=== PATIENT | female | born 1950 | race Caucasian/White ===

== ENCOUNTER 2024-07-21 13:28 | Emergency (ER) | payer OTHER, MEDICAID, SELFPAY ==
[2024-07-21 13:50] VITALS: BMI 22.8
--- NOTE | 2024-07-21 14:10 | PC.NURSE ---
pt incontinent of stool. pt clean up and new brief and sheets applied. pt noted to have pressure wound on r buttock area. Allevyn dressing applied. dr cuevas in room
[2024-07-21 14:14] VITALS: BP 135/66; PULSE 92; RESP 18; TEMP 36.6; O2SAT 100
--- NOTE | 2024-07-21 14:14 | EDNOTE_ITS ---
ED Back Injury Pain RME/HPI General Chief Complaint: Back Pain/Injury Stated Complaint: BLOOD IN STOOL WITH BACK PAIN Time Seen by Provider: 07/21/24 13:58 Arrival date/time: 07/21/24 13:28 RME / HPI RME / HPI Narrative: Patient is a 73 year old female presenting to the ED BIBA for reported dark stool and back pain for a nonspecific period of time. Does not describe paina t this time, rates 5/10 on the pain scale. Patient denies fevers, chills, nausea, vomiting, diarrhea, constipation. Patient also reports that she has had multiple rounds of antibiotics for UTI with no change. Patient history includes spina bifida, hypertension. Related Data Previous Rx's ?Medication ?Instructions ?Recorded sulfamethoxazole 800 1 tab PO BID #20 tabs 08/02/24 mg-trimethoprim 160 mg tablet (Bactrim DS) Allergies Allergy/AdvReac Type Severity Reaction Status Date / Time ciprofloxacin [From Cipro] Allergy Severe Rash Verified 07/21/24 13:37 Review of Systems Review of Systems Narrative Review of Systems: Gen: No fever, no chills, no weight loss EYES: No discharge, no visual changes, no pain HEENT: No ear pain, no congestion, no sore throat PULM: No shortness of breath, no cough, no congestion CV: No chest pain, no dyspnea on exertion, no palpitations GI: No nausea, no vomiting, no diarrhea, no pain, no constipation : No frequency, no urgency,? no dysuria Musc/skel: No joint pain, no back pain Skin: No rash? Psyc: No hallucinations, no depression Heme/Lymph: No easy bleeding or bruising tendencies Neuro: No weakness, no headache Past Medical History Past Medical History NEUROLOGIC: Positive Neurological Disorders and Spina Bifida CARDIAC: Positive Cardiac Disorders and Hypertension GASTROINTESTINAL: Positive Gastrointestinal Disorders GENITOURINARY: Positive Genitourinary Disorders and Neurogenic Bladder MUSCULOSKELETAL: Positive Osteoporosis Social History SMOKING STATUS: Light (< 1 pack/day) SUBSTANCE USE: does not use ED Exam Narrative Physical exam: GEN. APPEARANCE: The patient is alert awake oriented X-3 in no distress, lying down comfortably, does not look ill/toxic.? Patient has good eye contact.? Patient is cooperative. VITALS:? All vitals were reviewed and the pulse ox is 100% on room air which is normal according to my interpretation. HEENT: Normocephalic, atraumatic.? Pupils are equal and reactive.? Oral mucosa is moist. Patent Nares NECK: Supple, nontender, no thyromegaly, no meningismus, no JVD, no step offs CHEST: Symmetrical, atraumatic, and with equal expansion , Nontender on palpation no deformity and no crepitus. CARDIOVASCULAR: Heart regular rhythm no murmur or gallop rub or extra beats. LUNGS: Clear to auscultation bilaterally with symmetrical chest rise.? No laboring tachypnea or wheezing.? No intercostal subcostal retraction.? No rales and no rhonchi. ABDOMEN: Soft, flat, nontender to palpation, no guarding or rebound tenderness.? There are no abnormal masses palpated.? Active and normal bowel sounds. EXTREMITIES: Nontender.? No edema.? No cyanosis.? deformity of left hand. Spastic paraplegia. SKIN: Warm and dry, no jaundice or rashes noted. MUSCULOSKELETAL: No lubar or midline bony tenderness.? There is no CVA tenderness.? No paraspinal muscle spasm or tenderness. NEURO: Patient is [place] x 4, Cranial nerves II through XII grossly intact.? There is no focal neurologic deficits noted.? GCS is 15, PNS and DYNAMITE CARTRIDGE CRIMPER appear grossly intact. PSYCHIATRIC: Patient is in normal mood and affect, cooperative, no SI or HI or hallucinations. Rectal Exam Rectal exam: Present heme (-) stool and other (soft but not diarrhea, dark but not black. ) Course Quality Measures none Orders Category Date Time Status Hadoop Infrastructure Architect STAT Care 07/21/24 14:21 Completed Continuous Pulse Oximetry STAT Care 07/21/24 14:22 Completed EKG (ED ONLY) *Do not use* NOW Care 07/21/24 14:23 Completed Insert IV STAT Care 07/21/24 14:22 Completed Occult Blood,Stool (Nursing) NOW Care 07/21/24 15:57 Completed Urinary Catheter STAT Care 07/21/24 14:21 Completed EKG (ED Only) Stat Exams 07/21/24 14:23 Draft XR chest 1V portable Stat Exams 07/21/24 16:45 Completed CBC Stat Lab 07/21/24 14:53 Completed Comprehensive Metabolic Panel Stat Lab 07/21/24 14:53 Completed Magnesium Stat Lab 07/21/24 14:53 Completed Partial Thromboplastin Time Stat Lab 07/21/24 14:53 Completed Prothrombin Time with INR Stat Lab 07/21/24 14:53 Completed Troponin I Stat Lab 07/21/24 14:53 Completed Sodium Chloride 0.9% 1000 ml [Ns] 1,000 ml Med 07/21/24 14:21 Discontinued IV 999 mls/hr Vital Signs Vital signs: Vital Signs Temperature 98 F 07/21/24 14:14 Pulse Rate 92 07/21/24 14:14 Respiratory Rate 18 07/21/24 14:14 Blood Pressure 135/66 H 07/21/24 14:14 Pulse Oximetry (%) 100 07/21/24 14:14 Oxygen Delivery Method Room Air 07/21/24 14:14 Back Pain / Injury Patient data External records reviewed:: [facility] previous records Clinical information provided by:: patient Social determinants that could affect healthcare access:: none Patient has the following chronic illnesses:: spina bifida How is presenting disease/condition affected by chronic disease/condition?: caused by Evaluation data The following diagnostics were reviewed and interpreted by me:: lab results and EKG tracing(s) (Sinus rhythm, rate 97, normal axis, no ectopy, no acute ischemic changes) Lab and/or radiology exams considered but not ordered:: none Interpretation Summary: white count- 2300 creatinine- 2.8 anion gap- 16 BUN creat ration - 23 Medications / Prescriptions Medications or Prescriptions considered but not ordered:: none Medication administrations:: Medication Administration History Discontinued Medications Sodium Chloride (Ns) 1,000 mls @ 999 mls/hr IV .Q1H1M ONE Stop: 07/21/24 15:21 Last Admin: 07/21/24 18:31 Dose: Not Given Documented By: DO Non-Admin Reason: Patient Refused see above Consultations Consultation(s) initiated? (list below): No Diagnosis Differential diagnosis back pain/injury: other (gastritis vs peptic ulcer disease vs AV malformation vs diverticulosis vs viral diarrhea vs other) Most likely diagnosis given after review of the tests above:: leukocytosis, renal failure Admission Indicated Admission indicated?: not indicated Admission Request Was there a request for admission?: No Disposition Plan Disposition Plan: other (specify) (patient signed out AMA) Discharge Plan Plan Patient Disposition: Left Against Medical Advice Prescriptions/Referrals Prescriptions/Med Rec: No Action sulfamethoxazole-trimethoprim [Bactrim DS] 800-160 mg tablet 1 tab PO BID Qty: 20 0RF Referrals: No Primary/Family,Physician [Primary Care Provider] - In 1 week Problem List Clinical Impression: Acute renal failure, Leukocytosis Patient/Caregiver Discharge Instructions Print Language: Ukrainian
--- NOTE | 2024-07-21 14:23 | EKG_ITS ---
[facility] Test Date: 2024-07-21 Pat Name: RICHARD INFANTE Department: Room: - Gender: Female Lay Out Technician: : 1950 Requested By: Layton Devries Order Number: [id number] Reading MD: Layton Devries Measurements Intervals [place] Rate: 97 P: 70 AK: 135 QRS: 82 QRSD: 80 T: 54 QT: 338 QTc: 429 Interpretive Statements SINUS RHYTHM NONSPECIFIC T-WAVE ABNORMALITY No previous ECG available for comparison /store/S0/[id number]/ecg/[id number].pdf
[2024-07-21 15:12] LABS: Basophils % (Auto) 0 % (0-2.5); Eosinophils % (Auto) 0 % (0-10); Hematocrit 22.8 % (36.0-46.0); Immature Granulocytes % (Auto) 1 % (0-0); Immature Granulocytes Auto 0.13 Thou/mm3 (0.00-0.00); Lymphocytes # (Auto) 1.1 Thou/mm3 (1.0-4.8); Lymphocytes % (Auto) 5 % (10-50); Mean Corpuscular HGB Conc 30.7 g/dl (31.0-37.0); Mean Corpuscular Hemoglobin 22.2 pg (25.0-35.0); Mean Corpuscular Volume 72 fL (80-100); Monocytes # (Auto) 1.1 Thou/mm3 (0.0-0.8); Monocytes % (Auto) 5 % (0-12); Neutrophils # (Auto) 20.8 Thou/mm3 (1.8-7.7); Neutrophils % (Auto) 90 % (37-80); Nucleated Red Blood Cell % 0 /100 WBC (0); Platelet Count 394 Thou/mm3 (140-440); RDW Standard Deviation 49.3 fL (36.4-46.3); Red Blood Count 3.15 Miln/mm3 (4.00-5.20); White Blood Count 23.2 Thou/mm3 (3.6-11.0)
[2024-07-21 15:19] LABS: INR 1.1 (0.9-1.3); Partial Thromboplastin Time 31.2 Seconds (22.0-36.0); Prothrombin Time 11.5 Seconds (9.0-12.2)
[2024-07-21 15:25] LABS: Alanine Aminotransferase 22 U/L (10-49); Albumin, Serum 3.9 gm/dL (3.4-4.8); Albumin/Globulin Ratio 1.6 (1.2-2.2); Alkaline Phosphatase 115 U/L (46-116); Anion Gap 12 (7-16); Aspartate Amino Transferase 31 U/L (0-34); BUN/Creatinine Ratio 23 Ratio (12-20); Bilirubin,Total 0.2 mg/dL (0.3-1.2); Blood Urea Nitrogen 65 mg/dL (9-23); Calcium 9.4 mg/dL (8.3-10.6); Calcium (Corrected) 9.5 mg/dL (8.5-10.1); Carbon Dioxide 18.1 mMol/L (20.0-31.0); Chloride 107 mMol/L (98-107); Creatinine (Component) 2.8 mg/dL (0.6-1.3); Estimated Creatinine Clearance 13.7 mL/min (>60); Globulin 2.5 gm/dL (2.3-3.5); Glucose 88 mg/dL (74-106); Osmolality,Calculated 291 (275-295); Potassium 4.5 mMol/L (3.4-5.1); Sodium 137 mMol/L (136-145); Total Protein 6.4 gm/dL (5.7-8.2); Troponin I < 0.020 ng/mL (0.0-0.045); eGFR 17 See Note
--- NOTE | 2024-07-21 15:30 | PC.NURSE ---
ivl attempted with no success x 2
[2024-07-21 15:43] VITALS: PULSE 98
--- NOTE | 2024-07-21 16:00 | PC.NURSE ---
pt refused iv at this time. pt states that she does not want to be poked any more. dr cuevas informed.
--- NOTE | 2024-07-21 16:45 | XR_ITS ---
Termination: AP chest single view Technique one AP portable semiupright chest single view Exam date and time: July 21, 2024 at 1651 hrs. Comparison November 03, 2023 Indications: Coughing beginning 3 days ago. Findings: Normal heart size Accentuation basilar bronchovascular markings. No lobar pneumonia No pulmonary edema Moderate osteopenia Advanced osteoarthritis right glenohumeral joint Impression: Bibasilar bronchitis pattern
--- NOTE | 2024-07-21 17:50 | PC.NURSE ---
pt states that she does not want to be admitted to this hospital. pt states that she will go home if he wants to keep her. Dr Gamez in room speaking with pt. pt states that she wants to leave. dr gamez went over all consequence of her leaving and the reasons why he wants to admit her in the hospital. pt still wants to leave. pt signed ama form at this time
== END 2024-07-21 17:50 | disposition left against medical advice (07) ==
PROVIDERS: Emergency Provider Emergency Medicine
DX: N17.9 Acute kidney failure, unspecified (principal); D72.829 Elevated white blood cell count, unspecified; R94.31 Abnormal electrocardiogram [ECG] [EKG]; I10 Essential (primary) hypertension; Z53.29 Procedure and treatment not carried out because of patient's decision for other reasons
CPT/HCPCS: 36415; 71045; 80053; 81001; 83735; 84484; 85025; 85610; 85730; 93005; 99283

== ENCOUNTER 2024-08-02 19:16 | Emergency (ER) | payer OTHER, MEDICAID, SELFPAY ==
[2024-08-02] VITALS (9 sets, daily range): BP systolic 129–158; BP diastolic 45–66; PULSE 101–128; RESP 16–26; TEMP 37–39.1; O2SAT 92–97; BMI 25.1
--- NOTE | 2024-08-02 19:22 | PC.NURSE ---
Pressure ulcer to right buttocks present on arrival to ER
--- NOTE | 2024-08-02 19:41 | EDNOTE_ITS ---
ED Recheck Abnl Lab Rx-E/HPI General Chief Complaint: Recheck/Abnormal Lab/Rx Stated Complaint: BLOOD TRANSFUSION Time Seen by Provider: 08/02/24 19:21 Arrival date/time: 08/02/24 19:16 RME / HPI RME / HPI narrative: 73-year-old female patient with significant history of spina bifida, was sent to us by PCP for possible blood transfusion. Apparently patient had a blood drawn done yesterday and was advised to come to the emergency room for blood transfusion. No other details can be extracted from the patient. Patient is denying any abdominal pain denies any blood in the stool denies any vomiting blood denies any black tarry stool. However patient is complaining of chronic wound to the right buttocks. Was seen by PCP yesterday for this and waiting to be referred to patient care specialist. Patient denies any pain in the area. Denies any fever also. Related Data Previous Rx's ?Medication ?Instructions ?Recorded sulfamethoxazole 800 1 tab PO BID #20 tabs 08/02/24 mg-trimethoprim 160 mg tablet (Bactrim DS) Allergies Allergy/AdvReac Type Severity Reaction Status Date / Time ciprofloxacin [From Cipro] Allergy Severe Rash Verified 07/21/24 13:37 Review of Systems Review of Systems Narrative Review of Systems: Review of system reviewed and within normal limits except mentioned in HPI ED Exam Narrative Physical exam: VITAL SIGNS: Reviewed. GENERAL APPEARANCE: Alert and interactive, follows commands, no acute distress, HEAD AND FACE: Non-traumatic. ENT: PERRL, pale conjunctiva, eyelid no trauma, Mucous membrane moist. NECK: Supple, nontender, no nuchal rigidity. CHEST: No tenderness, no crepitus, no paradoxical movement, no retractions. LUNGS: Clear, well ventilated, symmetric, no rales, no wheezing, no ronchi, no stridor, good breath sounds bilaterally. HEART: Regular rate, regular rhythm, no murmur, no gallops. ABDOMEN: Soft, positive bowel sounds, nondistended, no guarding, nontender, no rebound, no masses, RECTAL: Deferred. GENITAL: Deferred. NEUROLOGICAL: Gross motor function intact sensory function intact, Appropriate for age. MUSCULOSKELETAL: low back nontender, full range of motion. EXTREMITIES: Nontender, full range of motion. SKIN: Color pink, dry, no rash, no lacerations, stage III pressure ulcer to the right buttock no drainage noted LYMPHATICS: Deferred. Course Quality Measures none Orders Category Date Time Status Bedside COVID-19 Antigen Test NOW Care 08/02/24 20:08 Completed Bedside Influenza A&B Antigen Test NOW Care 08/02/24 20:08 Completed Catheter [Urinary Catheter] QS Care 08/02/24 22:20 Completed Occult Blood,Stool (Nursing) ONCE Care 08/02/24 19:40 Completed Transfuse,blood/blood products ONCE Care 08/02/24 21:12 Completed XR chest 1V Stat Exams 08/02/24 20:08 Completed Blood Culture (Lab) Stat Lab 08/02/24 20:10 Received CBC [CBC] Stat Lab 08/02/24 20:05 Completed CMP [Comprehensive Metabolic Panel] Stat Lab 08/02/24 20:05 Completed Lactate (Lactic Acid) Stat Lab 08/02/24 20:05 Completed Occult Blood, Stool (LAB) Routine Lab 08/02/24 19:00 Completed Procalcitonin Stat Lab 08/02/24 20:05 Completed Type and Screen Stat Lab 08/02/24 20:05 Completed UA, C/S IF [Urinalysis, C/S if Indicated] Stat Lab 08/02/24 23:26 Completed Urine Culture Stat Lab 08/02/24 23:26 Received prbc [Red Blood Cells] Stat Lab 08/02/24 20:05 Completed Acetaminophen Tab [Tylenol ES Tab] Med 08/02/24 20:09 Discontinued 1,000 mg PO X1 ONE Sodium Chloride 0.9% 1000 ml [Ns] 1,000 ml Med 08/02/24 20:10 Discontinued IV 999 mls/hr cefTRIAXone/D5w 1gm IV premix [Rocephin/D5w 1gm IV Med 08/02/24 20:09 Discontinued premix] 50 ml IV X1 Vital Signs Vital signs: Vital Signs Temperature 99.7 F 08/02/24 19:33 Pulse Rate 114 H 08/02/24 19:33 Respiratory Rate 16 08/02/24 19:33 Blood Pressure 158/60 H 08/02/24 19:33 Pulse Oximetry (%) 92 L 08/02/24 19:33 Oxygen Delivery Method Room Air 08/02/24 19:33 Recheck / Abnormal Lab / Rx MDM Narrative MDM Narrative:: 73-year-old female patient with significant history of spina bifida, was sent to us by PCP for possible blood transfusion. Apparently patient had a blood drawn done yesterday and was advised to come to the emergency room for blood transfusion. No other details can be extracted from the patient. Patient is denying any abdominal pain denies any blood in the stool denies any vomiting blood denies any black tarry stool. However patient is complaining of chronic wound to the right buttocks. Was seen by PCP yesterday for this and waiting to be referred to patient care specialist. Patient denies any pain in the area. Denies any fever also. Patient's workup is significant for leukocytosis of 24.7, hemoglobin of 5.8, hematocrit of 18.7. Creatinine was noted to be 2.0 which is her baseline urinalysis positive for UTI. Patient was given ceftriaxone IV. Patient also received 2 units of packed RBC and tolerated the procedure well. There is no recurrence of fever noted in the ED. Patient leukocytosis could be secondary to her UTI And chronic pressure ulcer. Which the patient is awaiting to be seen by drug regulatory affairs specialist MD. Patient stable for discharge. Patient data External records reviewed:: [facility] previous records Clinical information provided by:: patient Social determinants that could affect healthcare access:: none Patient has the following chronic illnesses:: History was PWP, history of chronic ulcer to the right buttock, anemia How is presenting disease/condition affected by chronic disease/condition?: caused by Evaluation data The following diagnostics were reviewed and interpreted by me:: lab results and radiology exam(s) Lab and/or radiology exams considered but not ordered:: None Interpretation Summary: Patient's workup is significant for leukocytosis of 24.7, hemoglobin of 5.8, hematocrit of 18.7. Creatinine was noted to be 2.0 which is her baseline urinalysis positive for UTI. I personally reviewed and interpreted the x-ray of this patient. There is no acute abnormalities found, no infiltrates no pneumothorax no hemothorax normal chest x-ray. Review of other structures was without significant abnormal findings also. I additionally reviewed the radiologist report and agree with the interpretation. Medications / Prescriptions Medications or Prescriptions considered but not ordered:: None IVF Medication administrations:: Medication Administration History Discontinued Medications Acetaminophen (Acetaminophen 500 Mg Tablet) 1,000 mg PO X1 ONE Stop: 08/02/24 20:10 Last Admin: 08/02/24 21:16 Dose: 1,000 mg Documented By: FATOU Ceftriaxone Sodium/Dextrose (Rocephin/D5w 1gm Iv Premix) 50 mls @ 100 mls/hr IV X1 ONE Stop: 08/02/24 20:38 Last Infusion: 08/02/24 21:50 Dose: Infused Documented By: Admin: 08/02/24 21:10 Dose: 100 mls/hr Documented By: FATOU Sodium Chloride (Ns) 1,000 mls @ 999 mls/hr IV .Q1H1M ONE Stop: 08/02/24 21:10 Last Infusion: 08/02/24 23:11 Dose: Infused Documented By: Admin: 08/02/24 21:16 Dose: 999 mls/hr Documented By: FATOU IV fluid hydration IV ceftriaxone, Tylenol Consultations Consultation(s) initiated? (list below): No Diagnosis Recheck Differential Diagnosis: encounter for wound recheck and other (Anemia, fever, UTI) Most likely diagnosis given after review of the tests above:: UTI, anemia, chronic pressure ulcer right buttock Admission Indicated Admission indicated?: not indicated Explain why admission is indicated or not indicated:: Stable Admission Request Was there a request for admission?: No Disposition Plan Disposition Plan: Discharge Discharge Attestation Discharge Attestation: The patient was given an opportunity to ask questions and understood the dis charge instructions. Discharge instructions specifically effects, indications for sooner follow up or return to the emergency department, and the expected course of current diagnosis. Patient condition: Stable Discharge Plan Plan Patient Disposition: HOME (Self Care) Disposition Comment: Stable Prescriptions/Referrals Prescriptions/Med Rec: New sulfamethoxazole-trimethoprim [Bactrim DS] 800-160 mg tablet 1 tab PO BID Qty: 20 0RF Referrals: No Primary/Family,Physician [Primary Care Provider] - In 1 week Problem List Clinical Impression: Anemia, Pressure ulcer of buttock, right, unstageable, UTI (urinary tract infection) Patient/Caregiver Discharge Instructions Discharge Activity: activity as tolerated Education Materials: Anemia Additional Instructions: Thank you for the opportunity for serving you today. You are stable for discharged . You are advised to: Follow-up with your PCP in 1 to 2 days Follow-up with your wound care MD specialist regarding your pressure ulcer Return to ED for worsening of symptoms Increase oral fluids Take medication as prescribed Print Language: Peruvian Stand Alone Forms: Margarita Award Info., Patient Portal Info Letter PA/UTILITY DIVISION PROJECT MANAGER Supervising Physician PA/UTILITY DIVISION PROJECT MANAGER Supervising Physician: MD Jese
--- NOTE | 2024-08-02 20:08 | XR_ITS ---
Examination: AP portable chest single view Technique one AP portable upright chest single view Exam date and time: August 02, 20242026 hrs. Indications: Fever today. Findings: Normal heart size Lungs are clear. The osseous structures are intact Impression: No pneumonia identified
[2024-08-02 20:13] LABS: Lactate (Lactic Acid) 0.7 mMol/L (0.4-2.0)
[2024-08-02 20:40] LABS: Basophils # (Auto) 0.1 Thou/mm3 (0.0-0.2); Basophils % (Auto) 0 % (0-2.5); Eosinophils # (Auto) 0.1 Thou/mm3 (0.0-0.5); Eosinophils % (Auto) 0 % (0-10); Immature Granulocytes % (Auto) 1 % (0-0); Immature Granulocytes Auto 0.18 Thou/mm3 (0.00-0.00); Lymphocytes # (Auto) 0.7 Thou/mm3 (1.0-4.8); Lymphocytes % (Auto) 3 % (10-50); Mean Corpuscular Hemoglobin 21.7 pg (25.0-35.0); Mean Corpuscular Volume 70 fL (80-100); Monocytes # (Auto) 1.5 Thou/mm3 (0.0-0.8); Monocytes % (Auto) 6 % (0-12); Neutrophils # (Auto) 22.2 Thou/mm3 (1.8-7.7); Neutrophils % (Auto) 90 % (37-80); Nucleated Red Blood Cell % 0 /100 WBC (0); Platelet Count 457 Thou/mm3 (140-440); RDW Standard Deviation 46.8 fL (36.4-46.3); Red Blood Count 2.67 Miln/mm3 (4.00-5.20); White Blood Count 24.7 Thou/mm3 (3.6-11.0)
[2024-08-02 21:04] LABS: Hematocrit 18.7 % (36.0-46.0); Hemoglobin 5.8 g/dL (12.0-16.0)
[2024-08-02] MEDS: cefTRIAXone/D5w 1gm IV premix 50 ML IV (21:10)
[2024-08-02] MEDS: ACETAMINOPHEN 500 MG TABLET 1000 MG PO (21:16)
[2024-08-02] MEDS: SODIUM CHLORIDE 0.9% 1000 ML 1,000 ML 999 ML IV (21:16)
[2024-08-02 21:28] LABS: Alanine Aminotransferase 13 U/L (10-49); Albumin, Serum 3.6 gm/dL (3.4-4.8); Albumin/Globulin Ratio 1.4 (1.2-2.2); Alkaline Phosphatase 98 U/L (46-116); Anion Gap 9 (7-16); Aspartate Amino Transferase < 8 U/L (0-34); BUN/Creatinine Ratio 19 Ratio (12-20); Bilirubin,Total < 0.2 mg/dL (0.3-1.2); Blood Urea Nitrogen 37 mg/dL (9-23); Calcium 9.1 mg/dL (8.3-10.6); Calcium (Corrected) 9.4 mg/dL (8.5-10.1); Carbon Dioxide 18.5 mMol/L (20.0-31.0); Chloride 108 mMol/L (98-107); Estimated Creatinine Clearance 21.2 mL/min (>60); Globulin 2.6 gm/dL (2.3-3.5); Glucose 95 mg/dL (74-106); Osmolality,Calculated 278 (275-295); Potassium 4.8 mMol/L (3.4-5.1); Procalcitonin 0.23 ng/ml (0.0-0.49); Sodium 135 mMol/L (136-145); Total Protein 6.2 gm/dL (5.7-8.2); eGFR 26 See Note
[2024-08-02 22:15] LABS: OBS Card Lot # 23001; OBS Developer Lot # 23003; OBS Performed By HICKE1; OBS QC OK? Yes; Occult Blood, Stool Negative (Negative)
[2024-08-02 23:47] LABS: Collection Type, Urine Clean Catch
[2024-08-03 00:03] LABS: Bilirubin,Urine Negative (Negative); Blood,Urine Negative (Negative); Clarity,Urine Turbid (Clear/Hazy); Color,Urine Lt-Yellow (Lt Yel-Yel); Culture Indicated,Urine Yes; Glucose, Urine Negative (Negative); Ketones,Urine Negative (Negative); Leukocyte Esterase,Urine Positive (Negative); Nitrite,Urine Positive (Negative); PH,Urine 6.5 (5.0-7.0); Protein,Urine 1+ (Neg - Trace); RBC,Urine 4 /hpf (0-3); Specific Gravity,Urine 1.012 (1.001-1.035); Squamous Epithelial Cell,Urine 3 /hpf (0-5); Urobilinogen,Urine Negative mg/dL (0.0-1.0); WBC,Urine 48 /hpf (0-5)
[2024-08-03 00:50] VITALS: BP 162/61; PULSE 110; RESP 20; TEMP 37.2; O2SAT 95
[2024-08-03 02:30] VITALS: BP 143/57; PULSE 100; RESP 19; TEMP 36.9; O2SAT 96
[2024-08-03 02:35] VITALS: BP 154/82; PULSE 94; RESP 18; TEMP 36.9; O2SAT 96
[2024-08-03 02:45] VITALS: BP 148/89; PULSE 98; RESP 19; TEMP 36.9; O2SAT 98
[2024-08-03 03:00] VITALS: BP 154/70; PULSE 100; RESP 20; TEMP 36.9; O2SAT 99
[2024-08-03 04:55] VITALS: BP 149/68; PULSE 98; RESP 18; TEMP 37; O2SAT 99
== END 2024-08-03 05:19 | disposition home or self-care (01) ==
PROVIDERS: Nurse Practitioner Family; Emergency Provider Emergency Medicine
DX: D64.9 Anemia, unspecified (principal); L89.310 Pressure ulcer of right buttock, unstageable; N39.0 Urinary tract infection, site not specified
CPT/HCPCS: 51702; 36415; 36430; 71045; 80053; 81001; 82270; 83605; 84145; 85025; 86850; 86900; 86901; 86923; 87040; 87086; 87400; 87811; 96361; 96365; 99285; J0696; J7030; P9016; A9270

== ENCOUNTER → 2024-08-15 | Outpatient (CLI) | payer MEDICARE, MEDICAID, SELFPAY | END | disposition home or self-care (01) | PROVIDERS: PCP Physician Assistant; Referring Provider Physician Assistant; Visit Provider Student in an Organized Health Care Education/Training Program | DX: L98.412 Non-pressure chronic ulcer of buttock with fat layer exposed (principal); L02.31 Cutaneous abscess of buttock; M10.9 Gout, unspecified; F17.200 Nicotine dependence, unspecified, uncomplicated; N18.6 End stage renal disease | CPT/HCPCS: 11042; 99213; A9270; G0463 ==

== ENCOUNTER 2024-08-28 19:14 | Inpatient (IN) | payer MEDICARE, SELFPAY ==
--- NOTE | 2024-08-28 19:33 | PD.EDRME ---
Rapid Medical Screening Exam RME Arrival date/time: 08/28/24 19:14 73-year-old female presents to the emergency room with a chief complaint of pain to the right buttocks due to a chronic ulcer that is irritating her and is draining. Patient states that has malodor. I have greeted and performed a focused initial assessment of this patient. A comprehensive ED assessment and evaluation of the patient, analysis of all test results, and completion of the medical decision making process will be conducted by additional ED providers. Chief Complaint: Skin/Abscess/Foreign Body Vital signs reviewed by provider: Yes
[2024-08-28 19:35] VITALS: BP 144/66; PULSE 99; RESP 18; TEMP 36.5; O2SAT 92
--- NOTE | 2024-08-28 20:08 | EDNOTE_ITS ---
ED Skin Abcess FB-RME/HPI General Chief complaint: Skin/Abscess/Foreign Body Stated complaint: ABSCESS BUTTOCK Time Seen by Provider: 08/28/24 20:08 Arrival date/time: 08/28/24 19:14 RME / HPI RME / HPI narrative: 73-year-old female patient with significant history of spina bifida, came in for evaluation regarding worsening wound/ulcer, to the right gluteal area, posterior proximal thigh, with malodorous smell. Patient initial onset was noted about third week of July, after patient was placing a baseboard in her house. Patient was seen by PCP, and was started on Cipro initially, and was changed to Bactrim, which the patient completed course. Was seen by wound cares MD, debridement of the wound was done last August 15, 2024. For the last few days, patient noticed worsening smell, despite changing the wound every day. Patient also noted generalized body weakness, chills, and not feeling well. Currently patient is not taking any antibiotic. Related Data Previous Rx's ?Medication ?Instructions ?Recorded sulfamethoxazole 800 1 tab PO BID #20 tabs 08/02/24 mg-trimethoprim 160 mg tablet (Bactrim DS) Allergies Allergy/AdvReac Type Severity Reaction Status Date / Time ciprofloxacin [From Cipro] Allergy Severe Rash Verified 08/28/24 19:17 Review of Systems Review of Systems Narrative Review of Systems: Review of system reviewed and within normal limits except mentioned in HPI ED Exam Narrative Physical exam: VITAL SIGNS: Reviewed. GENERAL APPEARANCE: Alert and interactive, follows commands, no acute distress, HEAD AND FACE: Non-traumatic. ENT: PERRL, pale conjunctiva eyelid no trauma, Mucous membrane moist. NECK: Supple, nontender, no nuchal rigidity. CHEST: No tenderness, no crepitus, no paradoxical movement, no retractions. LUNGS: Clear, well ventilated, symmetric, no rales, no wheezing, no ronchi, no stridor, good breath sounds bilaterally. HEART: Regular rate, regular rhythm, no murmur, no gallops. ABDOMEN: Soft, positive bowel sounds, nondistended, no guarding, nontender, no rebound, no masses, RECTAL: Deferred. GENITAL: Deferred. NEUROLOGICAL: Gross motor function intact sensory function intact, Appropriate for age. MUSCULOSKELETAL: low back nontender, full range of motion. Deformity noted on the left upper extremity EXTREMITIES: Right gluteal/proximal posterior thigh chronic wound,3x4 cm in size, with malodorous smell, puslike drainage, and necrotic tissue noted on the subcutaneous area, with tenderness, full range of motion. SKIN: Color pink, dry, no rash, no lacerations, no abrasions, no contusions. LYMPHATICS: Deferred. Course Quality Measures none Orders Category Date Time Status COVID-19 Screening Questionnaire NOW Care 08/28/24 21:49 Active Decision to Admit X1 Care 08/28/24 21:48 Completed Consult to General Surgery Stat Cons 08/28/24 21:[address] lower leg RT wo con Stat Exams 08/28/24 20:50 Completed Blood Culture (Lab) Stat Lab 08/28/24 19:51 Received CBC Stat Lab 08/28/24 19:56 Results CMP [Comprehensive Metabolic Panel] Stat Lab 08/28/24 19:56 Completed Lactate (Lactic Acid) Stat Lab 08/28/24 19:56 [address] Review Blood Smear Stat Lab 08/28/24 19:56 Results Procalcitonin Stat Lab 08/28/24 19:56 Completed Sed Rate (ESR) Stat Lab 08/28/24 19:56 Results UA [Urinalysis] Stat Lab 08/28/24 19:32 Ordered Urine Culture Stat Lab 08/28/24 19:32 Ordered Piper/Tazo 3.375 gm [Zosyn] Med 08/28/24 20:50 Discontinued 3.375 gm in 50 ml IV X1 Vancomycin Inj 1,000 mg Med 08/28/24 20:51 Active Sodium Chloride 0.9% 250 ml [Ns] 250 ml IV X1 Vital Signs Vital signs: Vital Signs Temperature 97.7 F 08/28/24 19:35 Pulse Rate 99 08/28/24 19:35 Respiratory Rate 18 08/28/24 19:35 Blood Pressure 144/66 H 08/28/24 19:35 Pulse Oximetry (%) 92 L 08/28/24 19:35 Oxygen Delivery Method Room Air 08/28/24 19:35 Skin / Abscess / Foreign Body MDM Narrative MDM Narrative:: 73-year-old female patient with significant history of spina bifida, came in for evaluation regarding worsening wound/ulcer, to the right gluteal area, posterior proximal thigh, with malodorous smell. Patient initial onset was noted about third week of July, after patient was placing a baseboard in her house. Patient was seen by PCP, and was started on Cipro initially, and was changed to Bactrim, which the patient completed course. Was seen by wound cares MD, debridement of the wound was done last August 15, 2024. For the last few days, patient noticed worsening smell, despite changing the wound every day. Patient also noted generalized body weakness, chills, and not feeling well. Currently patient is not taking any antibiotic. Patient was given IV vancomycin and IV Zosyn in the emergency room. Plan of care discussed with the patient and family who agrees to be admitted. Spoke with Dr Horn, general surgeon on-call, who agrees to see the patient in the floor. Spoke with hospitalist, Dr. Rivers admitted the patient. Patient data External records reviewed:: None Clinical information provided by:: patient and family Social determinants that could affect healthcare access:: none Patient has the following chronic illnesses:: Chronic kidney disease How is presenting disease/condition affected by chronic disease/condition?: exacerbated by Evaluation data The following diagnostics were reviewed and interpreted by me:: lab results and radiology exam(s) Lab and/or radiology exams considered but not ordered:: none Interpretation Summary: CT scan of the lower extremity showed Large area of soft tissue infection posterior upper thigh 5.4 x 4.0 x 4.2 cm with osteomyelitis involving the right ischium MRI pelvis without contrast follow-up would best assess full extent of this soft tissue infection as well as as extent of osteomyelitis Severe thickening of the urinary bladder wall, differential would include advanced cystitis, bladder carcinoma, clinical correlation advised Patient's workup today significant for leukocytosis of 14,000 creatinine was also noted to be 3.7, BUN of 75. Medications / Prescriptions Medications or Prescriptions considered but not ordered:: None Medication administrations:: Medication Administration History Acetaminophen (Acetaminophen 325 Mg Tablet) 650 mg PO Q6H PRN PRN Reason: Fever >101.5 Stop: 09/27/24 21:53 Hydrocodone Bitart/Acetaminophen (Hydrocodone/Apap 5/325 Tablet) 1 tab PO Q4HR PRN PRN Reason: PAIN SCALE 4-6 (Moderate Stop: 09/02/24 21:53 Heparin Sodium (Porcine) (Heparin Sod Inj 5000 Unit/Ml Vial) 5,000 unit SC Q8HR [facility] Stop: 09/11/24 21:59 Last Admin: 08/28/24 22:17 Dose: 5,000 unit Documented By: KIRSTIE Co-signed By: LAUREL Vancomycin HCl 1,000 mg/ (Sodium Chloride) 250 mls @ 150 mls/hr IV X1 ONE Stop: 08/28/24 22:30 Last Admin: 08/28/24 22:12 Dose: 150 mls/hr Documented By: KIRSTIE Sodium Chloride (Ns) 1,000 mls @ 75 mls/hr IV .[id number] [facility] Stop: 09/27/24 21:59 Last Admin: 08/28/24 22:24 Dose: 75 mls/hr Documented By: KIRSTIE Piperacillin/Tazobactam/Dextrose (Zosyn) 2.25 gm in 50 mls @ 100 mls/hr IV Q8HR [facility] Stop: 09/04/24 21:56 Last Admin: 08/28/24 22:05 Dose: Not Given Documented By: KIRSTIE Non-Admin Reason: Duplicate Medication on eMAR Admin: 08/28/24 22:03 Dose: Not Given Documented By: KIRSTIE Non-Admin Reason: Duplicate Medication on eMAR Pharmacy Consult (Vancomycin Pharmacy To Dose 1 Each Each) 1 each IV QDAY [facility] Stop: 09/28/24 08:59 Discontinued Medications Piperacillin/Tazobactam/Dextrose (Zosyn) 3.375 gm in 50 mls @ 100 mls/hr IV X1 ONE Stop: 08/28/24 21:19 Last Admin: 08/28/24 21:50 Dose: 100 mls/hr Documented By: KIRSTIE Piperacillin/Tazobactam/Dextrose (Zosyn) 3.375 gm in 50 mls @ 100 mls/hr IV Q6HR [facility] Stop: 09/04/24 21:55 Sodium Polystyrene Sulfonate (Sod Polystyrene Sulfon Susp 15 Gm/60 Ml Btl) 30 gm PO X1 ONE Stop: 08/28/24 21:56 Last Admin: 08/28/24 22:19 Dose: 30 gm Documented By: KIRSTIE IV Zosyn, IV vancomycin and Kayexalate Consultations Consultation(s) initiated? (list below): Yes Consultation #1 (Physician, Specialty, Details): Spoke with Dr Horn, discussed the case, thank you Dr. Diagnosis Skin/Abscess Differential Diagnosis: abscess of skin or subcutaneous tissue, cellulitis and other (Infected chronic wound right posterior thigh/gluteal area) Most likely diagnosis given after review of the tests above:: Chronic kidney disease, infected chronic wound right posterior thigh/gluteal Admission Indicated Admission indicated?: indicated Admission Request Was there a request for admission?: Yes Admission Attestation Admission request attestation: Discussed case with [Dr Rivers] from Hospitalist service regarding admission. Discussed patients ED course, exam findings, labs, and radiology results. The Hospitalist [agrees] to accept the patient for admission. Disposition Plan Disposition Plan: Discharge Discharge Attestation Discharge Attestation: The patient and all family members were given an opportunity to ask questions and understood the discharge instructions. Discharge instructions specifically effects, indications for sooner follow up or return to the emergency department, and the expected course of current diagnosis. Patient condition: Stable Discharge Plan Plan Patient Disposition: Admit Acute Care w/in Hospital Problem List Clinical Impression: Osteomyelitis, Infected wound, CKD (chronic kidney disease)
[2024-08-28 20:12] LABS: Basophils % (Auto) 0 % (0-2.5); Eosinophils # (Auto) 0.1 Thou/mm3 (0.0-0.5); Eosinophils % (Auto) 0 % (0-10); Hematocrit 27.8 % (36.0-46.0); Immature Granulocytes % (Auto) 4 % (0-0); Immature Granulocytes Auto 1.68 Thou/mm3 (0.00-0.00); Lymphocytes # (Auto) 0.8 Thou/mm3 (1.0-4.8); Lymphocytes % (Auto) 2 % (10-50); Mean Corpuscular HGB Conc 29.5 g/dl (31.0-37.0); Mean Corpuscular Hemoglobin 23.6 pg (25.0-35.0); Mean Corpuscular Volume 80 fL (80-100); Monocytes # (Auto) 1.3 Thou/mm3 (0.0-0.8); Monocytes % (Auto) 3 % (0-12); Neutrophils # (Auto) 36.3 Thou/mm3 (1.8-7.7); Neutrophils % (Auto) 91 % (37-80); Nucleated Red Blood Cell # 0.07 Thou/mm3 (0.00-0.00); Nucleated Red Blood Cell % 0 /100 WBC (0); Platelet Count 537 Thou/mm3 (140-440); RDW Standard Deviation 69.5 fL (36.4-46.3); Red Blood Count 3.47 Miln/mm3 (4.00-5.20)
[2024-08-28 20:18] LABS: Hemoglobin 8.2 g/dL (12.0-16.0); White Blood Count 40.2 Thou/mm3 (3.6-11.0)
[2024-08-28 20:35] LABS: Alanine Aminotransferase 10 U/L (10-49); Albumin, Serum 3.6 gm/dL (3.4-4.8); Albumin/Globulin Ratio 1.1 (1.2-2.2); Alkaline Phosphatase 148 U/L (46-116); Anion Gap 9 (7-16); Aspartate Amino Transferase 11 U/L (0-34); BUN/Creatinine Ratio 20 Ratio (12-20); Bilirubin,Total < 0.2 mg/dL (0.3-1.2); Blood Urea Nitrogen 75 mg/dL (9-23); Calcium 10.1 mg/dL (8.3-10.6); Calcium (Corrected) 10.4 mg/dL (8.5-10.1); Carbon Dioxide 23.7 mMol/L (20.0-31.0); Chloride 106 mMol/L (98-107); Creatinine (Component) 3.7 mg/dL (0.6-1.3); Globulin 3.3 gm/dL (2.3-3.5); Glucose 102 mg/dL (74-106); Osmolality,Calculated 299 (275-295); Potassium 5.6 mMol/L (3.4-5.1); Sodium 139 mMol/L (136-145); Total Protein 6.9 gm/dL (5.7-8.2); eGFR 12 See Note
[2024-08-28 20:37] LABS: Procalcitonin 0.49 ng/ml (0.0-0.49)
--- NOTE | 2024-08-28 20:50 | XR_ITS ---
Examination: CT right lower extremity, without contrast. 2-D sagittal reconstructions. 2-D coronal reconstructions. 3-D reconstructions. Date and time of exam:August 28, 2024 2101 hrs. Indications: Upper thigh nonhealing wound 2 months CTDI: vol (mGy):18.4 DLP: (mGycm):970 Technique: Multiple 1.25 mm axial sections of the right lower extremity without intravenous contrast have been obtained. 2-D sagittal and coronal reconstructions have been obtained. 3-D reconstructions have been obtained. Low dose protocols were performed. One or more of the following dose reduction techniques were used; automated exposure control, adjustment of the mA and/or KV according to patient size, use of iterative reconstruction technique. Findings: Diffuse edema in the subcutaneous fatty tissue Soft tissue infection posterior upper thigh, axial image 76 with air densities and soft tissue defect in the lower right buttock region, axial image 81 This area measures at least 5.4 x 4.0 x 4.2 cm Cortical bone destruction involving the posterior ischium, axial image 65 Large amounts of stool in the rectum Massive thickening of the urinary bladder wall No soft tissue abscess No cortical bone destruction involving the right hip or femoral shaft Impression: Large area of soft tissue infection posterior upper thigh 5.4 x 4.0 x 4.2 cm with osteomyelitis involving the right ischium MRI pelvis without contrast follow-up would best assess full extent of this soft tissue infection as well as as extent of osteomyelitis Severe thickening of the urinary bladder wall, differential would include advanced cystitis, bladder carcinoma, clinical correlation advised
[2024-08-28] MEDS: PIPER/TAZO 3.375 GM 3.375 GM/50 ML BAG IV (21:50)
--- NOTE | 2024-08-28 21:55 | PC.NURSE ---
Wound to R buttock irrigated and packed with damp kerlex dressing applied.
--- NOTE | 2024-08-28 21:59 | PD.EVENT ---
Documentation for date of: 08/28/24 Event Note Event Note: A 73-year-old female presented to the ER with the chief complaint of pain and drainage from a chronic ulcer located on her right buttock. The patient reports significant malodor and increasing severity over the last three weeks, with worsening pain and drainage over the past few days. The patient states she has had the ulcer for approximately two months but did not initially feel it due to her neurogenic bladder and limited sensation in the area. She recalls that it began after performing housework, during which she was scooting on the floor installing baseboards. The wound has been bleeding consistently, and she reports persistent malodor. Associated symptoms include occasional chills but no fever. Pertinent negatives include the absence of nausea, vomiting, or recent systemic symptoms such as generalized weakness. She reports dressing the wound herself and notes it is deep, with worsening pain over time. The patient has a past medical history of neurogenic bladder with recurrent UTIs, chronic osteomyelitis, spina bifida status post-surgical reduction, spinal cord tumor status post-surgical removal, and hypertension. She self-catheterizes for bladder management. Social history is significant for smoking approximately seven cigarettes daily; she denies alcohol or drug use. The patient lives alone but receives assistance from a friend. She reports limited mobility, requiring a walker. In the Emergency Department, the patient was initially evaluated with vital signs as follows: temperature 97.7?F, heart rate 99 bpm, respiratory rate 18 bpm, and blood pressure 144/66 mmHg. Laboratory results revealed a WBC of 40.2, hemoglobin of 8.2, platelet count of 537, sodium of 139, potassium of 5.6, creatinine of 3.7, and procalcitonin of 0.49. Imaging studies, including a CT scan, demonstrated a large soft tissue infection in the posterior upper thigh (5.4 x 4.0 x 4.2 cm), osteomyelitis involving the right ischium, and severe thickening of the urinary bladder wall, suggesting advanced cystitis or bladder carcinoma. MRI of the pelvis without contrast was recommended for further assessment of the soft tissue infection and extent of osteomyelitis. Interventions included wound irrigation and packing. Surgery was consulted, and the patient was admitted for further management and evaluation. Assessment and plan 1. Chronic Right Buttock Ulcer with Soft Tissue Infection and Suspected Osteomyelitis #Assessment: The patient presents with a chronic ulcer on the right buttock with malodor, increasing drainage, and significant pain, consistent with an infected wound. CT imaging confirms a large soft tissue infection and osteomyelitis of the right ischium. Laboratory findings are notable for leukocytosis (WBC 40.2). #Plan: - Initiate empiric IV antibiotics covering gram-positive cocci, gram-negative rods, and anaerobes (vancomycin and piperacillin-tazobactam), pending culture results - Proceed with MRI of the pelvis to assess the extent of soft tissue involvement and osteomyelitis - Surgical consultation 2. RENAE #Assessment: Elevated creatinine of 3.7 #Plan: - Initiate IV fluids - Monitor potassium levels closely and treat hyperkalemia - Monitor renal function with daily creatinine - Avoid nephrotoxic agents
[2024-08-28 22:12] VITALS: BP 134/61; PULSE 105; RESP 17; O2SAT 95
[2024-08-28] MEDS: Vancomycin Inj 1,000 MG in SODIUM CHLORIDE 0.9% 250 ML 250 ML 150 MG IV (22:12)
[2024-08-28] MEDS: HEPARIN SOD INJ 5000 UNIT/ML VIAL SC (22:17)
[2024-08-28] MEDS: SOD POLYSTYRENE SULFON SUSP 15 GM/60 ML BTL 30 GM PO (22:19)
[2024-08-28] MEDS: SODIUM CHLORIDE 0.9% 1000 ML 1,000 ML 75 ML IV (22:24)
--- NOTE | 2024-08-28 22:53 | ESHP_ITS ---
Documentation for date of: 08/28/24 [facility] History of Present Illness History of present illness: A 73-year-old female with significant past medical history of chronic smoker, spina bifida s/p surgery, neurogenic bladder with recurrent UTI, chronic osteomyelitis of right and left lower extremities, incompliant with IV antibiotics, anomalous left upper extremity, spinal cord tumor s/p surgical removal, hypertension, chronic gluteal ulcer since 2019 and repeated debridements per chart review presented to the hospital with chief complaints of worsening of the ulcer in right gluteal region. Patient reported that she is following with primary care provider Dr. Last and tried to establish care with the commercial loan specialist and following up with wound care nurse. Patient saw her doctor on 08/15/2024 and got wound debridement during that time. Patient was started on ciprofloxacin at that time. Recently, patient noticed that the ulcer in the posterior gluteal region on right side is getting worse in terms of deepening of the ulcer where she can feel the bone, felt that her pain is extending down up to knee joint and also noticed foul- smelling discharge from the ulcer. Also complaining of severe pain at the site of ulcer. Patient reported that she is having decreased sensation in lower extremities and gluteal region and even did not notice ulcer at the gluteal region till her girlfriend noted it. Patient is denies fever, abdominal pain, chest pain, shortness of breath, burning micturition, palpitations. At baseline, patient is able to mobilize with the help of walker around the home. Also endorsed that she urinates with the help of In and Out catheter and also had history of chronic constipation. ED Course: -Initial vitals were blood pressure 144/66 mmHg, pulse rate 99 bpm, respiratory rate 18/min, temperature 97.7 ?F, SpO2 92% with room air. -Labs significant for WBC 40.2, Hb 8.2, platelets 537, sodium 139, potassium 5.6, chloride 106, bicarb 23.7, BUN 75, creatinine 3.7, C-reactive protein 18.8, procalcitonin 0.49. -Lower extremity CT showed Large area of soft tissue infection posterior upper thigh 5.4 x 4.0 x 4.2 cm with osteomyelitis involving the right ischium -In the ED, patient was given Zosyn, vancomycin and started on IV fluids. -Patient was admitted for osteomyelitis of right ischium Past medical history: chronic smoker, spina bifida s/p surgery, neurogenic bladder with recurrent UTI, chronic osteomyelitis of right and left lower extremities, anomalous left upper extremity, spinal cord tumor s/p surgical removal, hypertension, chronic gluteal ulcer since 2019 Past surgical history: spina bifida s/p surgery, spinal cord tumor s/p surgical removal Social history: Chronic smoker since the age of 14, smoking 12 cigarettes/day, denies alcohol, other illicit drug abuse. Review of Systems Review of Systems Systems Reviewed: All systems reviewed, normal except as documented Past Medical History Past Medical History NEUROLOGIC: Positive Spina Bifida CARDIAC: Positive Hypertension RESPIRATORY: Positive Wheezing, Smoking and Tobacco Use GENITOURINARY: Positive Chronic Kidney Disease MUSCULOSKELETAL: Positive Arthritis and Osteomyelitis HEMATOLOGIC: Positive Anemia Social History SMOKING STATUS: Heavy (> 1 pack/day) Exam Vital Signs Temp Pulse Resp BP Pulse Ox O2 Del Method 97.7 F 105 H 17 134/61 H 95 Room Air 08/28/24 19:35 08/28/24 22:12 08/28/24 22:12 08/28/24 22:12 08/28/24 22:12 08/28/24 22:12 Narrative Exam General: Awake. Elderly female lying on the bed. HEENT: Normocephalic, atraumatic, mucous membranes dry. Heart: Regular rate and rhythm, no murmurs. Lungs: Barrel-shaped chest. Diffuse bilateral wheezing heard. Abdomen: Soft, nondistended, nontender, positive bowel sounds. ?No guarding or rebound tenderness. Neurologic: Alert and oriented x3, decreased sensations in the lower extremities and lower trunk, and patient able to move all 4 extremities. Extremities: No edema. Soiled feet noted. Skin: No rash or ecchymoses. Ulcer of 5 x 4 x 4 cm noted in right gluteal area. Results: Labs 08/28/24 19:56 08/28/24 19:56 Labs: Short CBC 08/28/24 Range/Units 19:56 WBC 40.2 H* (3.6-11.0) Thou/mm3 Hgb 8.2 L (12.0-16.0) g/dL Hct 27.8 L (36.0-46.0) % Plt Count 537 H D (140-440) Thou/mm3 BMP 08/28/24 19:56 Sodium 139 Potassium 5.6 H Chloride 106 Carbon Dioxide 23.7 BUN 75 H Creatinine 3.7 H Glucose 102 Calcium 10.1 Liver Function 08/28/24 Range/Units 19:56 Total Bilirubin < 0.2 L (0.3-1.2) mg/dL AST 11 (0-34) U/L ALT 10 (10-49) U/L Alkaline Phosphatase 148 H (46-116) U/L Albumin 3.6 (3.4-4.8) gm/dL Quality Measures Quality Measures none Advance care planning discussed with:: patient Medications Home Medications and Allergies Allergies Allergy/AdvReac Type Severity Reaction Status Date / Time ciprofloxacin [From Cipro] Allergy Severe Rash Verified 08/28/24 19:17 Visit Medications Acetaminophen (Acetaminophen 325 Mg Tablet) 650 mg PO Q6H PRN PRN Reason: Fever >101.5 Stop: 09/27/24 21:53 Hydrocodone Bitart/Acetaminophen (Hydrocodone/Apap 5/325 Tablet) 1 tab PO Q4HR PRN PRN Reason: PAIN SCALE 4-6 (Moderate Stop: 09/02/24 21:53 Heparin Sodium (Porcine) (Heparin Sod Inj 5000 Unit/Ml Vial) 5,000 unit SC Q8HR [facility] Stop: 09/11/24 21:59 Last Admin: 08/28/24 22:17 Dose: 5,000 unit Sodium Chloride (Ns) 1,000 mls @ 75 mls/hr IV .[id number] [facility] Stop: 09/27/24 21:59 Last Admin: 08/28/24 22:24 Dose: 75 mls/hr Piperacillin/Tazobactam/Dextrose (Zosyn) 2.25 gm in 50 mls @ 100 mls/hr IV Q8HR [facility] Stop: 09/04/24 21:56 Last Admin: 08/28/24 22:05 Dose: Not Given Pharmacy Consult (Vancomycin Pharmacy To Dose 1 Each Each) 1 each IV QDAY [facility] Stop: 09/28/24 08:59 Discontinued Medications Piperacillin/Tazobactam/Dextrose (Zosyn) 3.375 gm in 50 mls @ 100 mls/hr IV X1 ONE Stop: 08/28/24 21:19 Last Admin: 08/28/24 21:50 Dose: 100 mls/hr Vancomycin HCl 1,000 mg/ (Sodium Chloride) 250 mls @ 150 mls/hr IV X1 ONE Stop: 08/28/24 22:30 Last Admin: 08/28/24 22:12 Dose: 150 mls/hr Piperacillin/Tazobactam/Dextrose (Zosyn) 3.375 gm in 50 mls @ 100 mls/hr IV Q6HR [facility] Stop: 09/04/24 21:55 Sodium Polystyrene Sulfonate (Sod Polystyrene Sulfon Susp 15 Gm/60 Ml Btl) 30 gm PO X1 ONE Stop: 08/28/24 21:56 Last Admin: 08/28/24 22:19 Dose: 30 gm Assessment & Plan Plan A 73-year-old female with significant past medical history of chronic smoker, spina bifida s/p surgery, neurogenic bladder with recurrent UTI, chronic osteomyelitis of right and left lower extremities, incompliant with IV antibiotics, anomalous left upper extremity, spinal cord tumor s/p surgical removal, hypertension, chronic gluteal ulcer since 2019 and repeated debridements per chart review presented to the hospital with chief complaints of worsening of the ulcer in right gluteal region and admitted for osteomyelitis of right ischium secondary to extension from posterior gluteal ulcer. # Osteomyelitis of right ischium # Secondary to extension from right gluteal ulcer since 2019 # Secondary to underlying spina bifida # History of chronic osteomyelitis of left and right lower extremities,incompliant with IV antibiotics -Patient had history of chronic right posterior gluteal ulcer since 2019 and underwent recurrent debridement -Patient had history of chronic osteomyelitis of lower extremities but per chart review patient did not complete IV antibiotic course. -Patient had decreased sensation in lower extremities, lower abdomen and gluteal area secondary to spina bifida -Presented with worsening of gluteal ulcer as patient is able to feel bone and also observed foul-smelling discharge from the ulcer. Also felt that her pain is extending down upto knee joint. -Denies fever, shortness of breath, abdominal pain, other associated complaints. -On examination, there is approximately 5 x 3 x 4 cm ulcer which is extending up to the bone -Labs showed WBC of 40.2, Hb 8.2, platelet count 537. CRP is 18.8. Procalcitonin is 0.49 -Lower extremity CT showed osteomyelitis of right ischium Plan -Blood cultures are sent -Referral to wound care was done -Started on Zosyn and vancomycin [08/28- -zinc and vitamin C to promote wound healing -General Surgery, Dr. Lawrence was consulted -MRI of pelvis is ordered to assess the extension of the ulcer and osteomyelitis. -Consult ID if needed # Acute on chronic kidney disease # Hyperkalemia Likely in the setting of ongoing osteomyelitis -Baseline creatinine is 1 in 01/2024 -Creatinine in 07/2024 is 2 -Creatinine at the time of admission is 3.7, BUN is 75 -Potassium is 5.6 Plan -Started on IV fluids, NS at 75 mL/h -Encourage to take plenty of oral fluids -Monitor renal functions -Consult nephrology if needed -Renally dose medications and avoid nephrotoxic medications # Anemia Likely nutritional -Hemoglobin at the time of admission is 8.2, MCV 80, MCH 23.6, MCHC 29.5 -Iron panel and ferritin was ordered, replenish as needed -Nephro-Hilary is ordered -Multivitamin injection is ordered # Thrombocytosis, likely reactive in the setting of osteomyelitis -Platelet count at the time of admission is 537 -Monitor CBC # History of hypertension -Blood pressure at the time of admission is 144/66 mmHg, repeat blood pressure is 134/61 mmHg -Monitor blood pressures and add medication accordingly. # Chronic smoker #? COPD -Patient had a history of smoking since the age of 14, 12 cigarettes/day -On auscultation, diffuse wheeze heard. barrel-shaped chest is noted -Chest x-ray done in 08/02 showed hyperinflated lungs -Nebulizations were ordered but patient is refusing nebulizations -Recommended to educate on smoking cessation -Denied nicotine patch -Recommended to follow up in outpatient setting # Neurogenic bladder with recurrent UTIs -Patient is using in and out catheters to urinate -Denies any other symptoms. -Chronic cystitis noted on imaging, CT # History of spinal cord tumor s/p removal # Anomalous left upper extremity -No active interventions as of now Hospital Maintenance: Dispo: Med[employer] DVT ppx: Heparin GI ppx: not needed Diet: Cardiac IV lines: Peripheral Code status: DNR/DNI Patient plan of care was discussed with the attending physician, Dr. Silvestre Gonzales, PGY1 Attending Provider Attestation/Addendum Pt was evaluated and plan formulated together with the housestaff team. I have reviewed the residents note above and agree with most of its content. Please refer to the residents note for additional details.
[2024-08-28 23:43] LABS: C-Reactive Protein 18.8 mg/dL (0.0-0.9)
[2024-08-29] VITALS (11 sets, daily range): BP systolic 120–148; BP diastolic 57–74; PULSE 81–107; RESP 16–87; TEMP 36.1–36.3; O2SAT 87–97
[2024-08-29] MEDS: ALBUTEROL/IPRATROPIUM (Duoneb) RT SOL 3 ML NEBU INH (00:08)
--- NOTE | 2024-08-29 00:34 | PC.NURSE ---
Report called to radhika MENDOZA. Pt taken to by myself on monitor.
[2024-08-29] MEDS: HYDROcodone/APAP 5/325 TABLET 1 TAB PO ×2 (00:39→11:47)
--- NOTE | 2024-08-29 01:00 | PC.NURSE ---
Received patient from ER, in via gurney, patient assisted to bed.
--- NOTE | 2024-08-29 01:30 | PC.NURSE ---
Unable to do do a complete assessment , patient been refusing care, refused staff to assist her in cleaning self. Did allowed staff to do a dressing changed to her right lower ischium open sore. Refused tele monitor. Will notify
--- NOTE | 2024-08-29 02:00 | PC.NURSE ---
DR Gonzales at bedside, trying to explained to patient regarding her care, refused, told staff to leave her alone.
--- NOTE | 2024-08-29 02:45 | PC.NURSE ---
Verified with patient the last time she did a self cath. states before admission. Did attempt to do self cath, no output, denies any discomfort at this time. Up to bedside commode, did have a large BM.
--- NOTE | 2024-08-29 02:50 | PC.NURSE ---
Informed by RT, patient refused treatment at this time.
[2024-08-29 04:58] LABS: Path Review Blood Smear Sent to Pathologist
[2024-08-29 05:00] LABS: Sed Rate (ESR) 44 mm/hr (0-30)
[2024-08-29] MEDS: ZINC GLUCONATE 50 MG TABLET PO (05:32)
[2024-08-29] MEDS: HEPARIN SOD INJ 5000 UNIT/ML VIAL SC (05:32)
[2024-08-29 06:41] LABS: Basophils # (Auto) 0.1 Thou/mm3 (0.0-0.2); Basophils % (Auto) 0 % (0-2.5); Eosinophils # (Auto) 0.1 Thou/mm3 (0.0-0.5); Eosinophils % (Auto) 0 % (0-10); Mean Corpuscular Volume 80 fL (80-100); Monocytes % (Auto) 4 % (0-12); Nucleated Red Blood Cell % 0 /100 WBC (0)
[2024-08-29 06:43] LABS: Anion Gap 11 (7-16); BUN/Creatinine Ratio 22 Ratio (12-20); Blood Urea Nitrogen 79 mg/dL (9-23); Calcium 9.3 mg/dL (8.3-10.6); Chloride 107 mMol/L (98-107); Creatinine (Component) 3.6 mg/dL (0.6-1.3); Glucose 81 mg/dL (74-106); Hematocrit 24.9 % (36.0-46.0); Immature Granulocytes % (Auto) 4 % (0-0); Immature Granulocytes Auto 1.54 Thou/mm3 (0.00-0.00); Lymphocytes % (Auto) 3 % (10-50); Mean Corpuscular HGB Conc 30.1 g/dl (31.0-37.0); Monocytes # (Auto) 1.6 Thou/mm3 (0.0-0.8); Neutrophils # (Auto) 31.7 Thou/mm3 (1.8-7.7); Neutrophils % (Auto) 88 % (37-80); Nucleated Red Blood Cell # 0.05 Thou/mm3 (0.00-0.00); Osmolality,Calculated 300 (275-295); Platelet Count 484 Thou/mm3 (140-440); Potassium 5.6 mMol/L (3.4-5.1); RDW Standard Deviation 69.4 fL (36.4-46.3); Red Blood Count 3.12 Miln/mm3 (4.00-5.20); Sodium 139 mMol/L (136-145); eGFR 13 See Note
[2024-08-29 07:04] LABS: Ferritin 53 ng/mL (7.3-270.7); Total Iron Binding Capacity 226 mcg/dL (250-425)
[2024-08-29 07:13] LABS: Iron 25 mcg/dL (50-170); Percent Iron Saturation 11 % (20-55); Unsaturated Iron Binding 201 (225-295)
[2024-08-29 07:56] LABS: Glucose Estimated Average 120 mg/dL (80-131); Hemoglobin A1C 5.8 % Hgb (4.8-6.0)
--- NOTE | 2024-08-29 08:39 | EKG_ITS ---
[facility] Test Date: 2024-08-29 Pat Name: RICHARD INFANTE [facility] Gender[facility] Hob Grinder: ALE : 1950 Requested By: Yon Hollingsworth Order Number: [id number] Reading MD: Yon Hollingsworth Measurements Intervals [place] Rate: 99 P: 72 RI: 128 QRS: 82 QRSD: 77 T: 60 QT: 306 QTc: 394 Interpretive Statements SINUS RHYTHM Compared to ECG 07/21/2024 14:48:25 T-wave abnormality no longer present /store/S0/[id number]/ecg/[id number].pdf
--- NOTE | 2024-08-29 08:41 | XR_ITS ---
Examination: Retroperitoneal ultrasound, complete Technique: Multiple high resolution grayscale images of the retroperitoneum obtained, including kidneys and bladder. Exam date and time:August 29, 2024 1145 hours INDICATIONS: Left flank pain and tenderness to touch today FINDINGS: Right kidney 11.8 x 4.8 x 5.0 cm cortex 1.6 cm Mid[place] right renal cyst 20 mm Left kidney 7.1 x 3.9 x 4.4 cm cortex 1.3 cm Bilateral prominent hydronephrosis Bladder demonstrates large partially calcified mass 8.5 x 6.5 x 4.7 cm bladder prevoid volume 277 cc IMPRESSION: Recommend CT scan abdomen pelvis post intravenous contrast follow-up to assess prominent hydronephrosis and large mass in the bladder
[2024-08-29 08:47] LABS: Hemoglobin 7.5 g/dL (12.0-16.0)
[2024-08-29] MEDS: VIT B12/Vit C/FA (Nephrovite) TABLET 1 TAB PO (09:08)
[2024-08-29] MEDS: ASCORBIC ACID 250 MG TABLET 500 MG PO ×2 (09:08→20:55)
[2024-08-29] MEDS: PIPER/TAZO 3.375 GM 50 ML IV ×2 (09:08→20:53)
[2024-08-29] MEDS: CALCIUM GLUCONATE 10% INJ 1 GM/10 ML VIAL IV (09:30)
[2024-08-29] MEDS: PATIROMER CALCIUM 8.4 GM PACKET (NON-FORM) PO (09:34)
--- NOTE | 2024-08-29 10:25 | PC.SS ---
Initial assessment: This is 73 year old female admitted for osteomyelitis. Patient comes from home, informs she lives alone. Patient confirmed demographic information. Patient identified her friend Ria as her emergency contact. Patient informs she is regularly independent with ADL's. Patient has walker and cane at home to assist if necessary. Patient denies having home oxygen. Patient informs her latest PCP was Wilfredo Kirkpatrick, with last appointment during July 2024. Patient informs she was getting wound care at the wound center once. Per patient she does not want to go to SNF. Patient informs she would prefer home health for wound care. No preferred agency. Patient would like to return home upon discharge. D/c plan: home Next of kin: friend, Ria Grande
[2024-08-29] MEDS: VANCOMYCIN/NS 750 MG IVPB 750 MG/150 ML BAG 120 MG IV (10:47)
[2024-08-29 11:13] LABS: Creatine Kinase 22 U/L (34-171); Phosphorous 6.6 mg/dL (2.4-5.1)
--- NOTE | 2024-08-29 11:13 | XR_ITS ---
Examination: AP chest single view Technique one AP portable upright chest single view Exam date and time:: August 29, 2024 1128 hours COMPARISON: August 02, 2024 INDICATIONS: COPD history with chronic difficulty breathing FINDINGS: Normal heart size Moderate hyperexpansion Accentuation basilar bronchovascular markings Prominent osteopenia Suspicious for avascular necrosis right humeral head IMPRESSION: COPD Basilar bronchitis pattern
--- NOTE | 2024-08-29 11:14 | ECHO_ITS ---
Transthoracic Echo Report Ht (in): 60 Wt (lb): 137 Exam Location: Portable Status: Inpatient [employer] Engineer: Arelis Cruz Indications: Procedure Performed: BP: 137 / 80 HR: 100 Rhythm: Sinus Technical Quality: Fair MEASUREMENTS (Male / Female) Normal Values 2D ECHO LV Diastolic Diameter PLAX 3.9 cm 4.2 - 5.9 / 3.9 - 5.3 cm LV Systolic Diameter PLAX 2.4 cm IVS Diastolic Thickness 1.1 cm 0.6 - 1.0 / 0.6 - 0.9 cm LVPW Diastolic Thickness 1.2 cm 0.6 - 1.0 / 0.6 - 0.9 cm LV Relative Wall Thickness 0.6 LVOT Diameter 1.6 cm LA Volume Index 31.7 cm?/m? 16 - 28 cm?/m? Ascending Aorta Diameter 2.7 cm M-MODE Aortic Root Diameter MM 2.8 cm LA Systolic Diameter MM 4.8 cm LA Ao Ratio MM 1.7 AV Cusp Separation MM 2.1 cm DOPPLER AV Peak Velocity 232.2 cm/s AV Peak Gradient 21.6 mmHg AV Mean Gradient 9.0 mmHg AV Velocity Time Integral 39.3 cm LVOT Peak Velocity 160.2 cm/s LVOT Peak Gradient 10.3 mmHg LVOT Velocity Time Integral 30.0 cm LVOT Cardiac Index 3678.4 cm?/min?m? AV Area Cont Eq vti 1.5 cm? AV Area Cont Eq pk 1.4 cm? MV Peak Velocity 142.0 cm/s MV Peak Gradient 8.1 mmHg MV Mean Velocity 90.8 cm/s MV Mean Gradient 4.0 mmHg MV Area PHT 3.1 cm? Mitral E Point Velocity 111.0 cm/s Mitral A Point Velocity 122.0 cm/s Mitral E to A Ratio 0.9 LV E' Lateral Velocity 7.6 cm/s Mitral E to LV E' Lateral Ratio 14.6 LV E' Septal Velocity 5.5 cm/s Mitral E to LV E' Septal Ratio 20.0 TR Peak Velocity 270.0 cm/s TR Peak Gradient 29.2 mmHg FINDINGS Left Ventricle Normal left ventricular size, systolic function with no obvious regional wall motion abnormalities. Mild LVH. The ejection fraction is visually estimated at 65-70%. Right Ventricle The right ventricle is normal in size and systolic function. The estimated right ventricular systoli c pressure, 34mmHg. RAP 5. Left Atrium The left atrium is mildly dilated. Right Atrium The right atrium is normal by two-dimensional imaging, color flow and Doppler imaging with no struct ural abnormalities, no thrombus formation present. Atrial Septum The interatrial septum appears normal with no evidence of a shunt. Aorta The aorta is normal by two-dimensional, color flow and Doppler interrogation. Mitral Valve The mitral valve is mildly MAC. There is trace mitral valve regurgitation. Aortic Valve The aortic valve is trileaflet and normal by two-dimensional, color flow and Doppler interrogation. There is no significant aortic valve regurgitation. Tricuspid Valve The tricuspid valve is normal by two-dimensional, color flow and Doppler interrogation. There is mil d tricuspid valve regurgitation. Pulmonic Valve The pulmonic valve is not well visualized. There is no significant pulmonic valve regurgitation. Vessels The pulmonary artery appears normal. The inferior vena cava pulmonary and hepatic veins appear valentine l. Pericardium The pericardium is normal by two-dimensional imaging. There is no significant pericardial effusion. CONCLUSIONS Normal LV size. Hyperdynamic function. Mild LVH. Estimated EF 70-75% Normal RV size and function Mild MAC. Trace MR. Mild TR. Caroline Raymond (Electronically Signed) Final Date: 30 August 2024 13:24
[2024-08-29 13:24] LABS: Collection Type, Urine Clean Catch
[2024-08-29 13:38] LABS: Bilirubin,Urine Negative (Negative); Blood,Urine 2+ (Negative); Glucose, Urine Negative (Negative); Ketones,Urine Negative (Negative); Leukocyte Esterase,Urine Positive (Negative); Nitrite,Urine Negative (Negative); Protein,Urine 3+ (Neg - Trace); RBC,Urine 83 /hpf (0-3); Renal Epithelial Cells,Urine 11 /hpf (0-5); Specific Gravity,Urine 1.016 (1.001-1.035); Squamous Epithelial Cell,Urine 24 /hpf (0-5); Urobilinogen,Urine Negative mg/dL (0.0-1.0); WBC,Urine 898 /hpf (0-5)
[2024-08-29 13:41] LABS: Clarity,Urine Hazy (Clear/Hazy); Color,Urine Yellow (Lt Yel-Yel)
--- NOTE | 2024-08-29 13:44 | ESPR_ITS ---
<Statement entered by Yon Hollingsworth MD - 08/29/24 18:47> Patient was seen and examined at the bedside this morning. Patient is admitted with a history of spinal stenosis, bedbound with sacral ulcer was found to have osteomyelitis of the ischium. Patient had worsening kidney functions on this admission and was noted to be previously admitted in the hospital in January 2024 with normal kidney functions. CT imaging was significant for soft tissue osteomyelitis. Patient is currently on vancomycin and Zosyn and awaiting blood cultures and MRI pelvis without contrast. Nephrology was consulted for worsening kidney functions and urine microalbumin ratio was elevated. Ultrasound was ordered which was significant for calcified bladder mass therefore urologist has been consulted who recommended to order CT abdomen pelvis without contrast. Breathing treatment and Veltassa was given for hyperkalemia 5.6. CRP was elevated. General surgery, Dr. Lawrence will perform I&D tomorrow morning and patient will be n.p.o. after midnight for possible procedure. Patient is open to further treatment including dialysis if it becomes necessary.will follow-up with potassium level. All labs and orders were reviewed. I saw and examined the patient, and I agree with current management stated by Dr Cadence MD,PGY1. Plan of care was discussed with the attending physician and resident physician. Disclaimer: Despite multiple revisions, due to the dictation software being used, the document bellow may not be free of grammatical errors including phonetic/typographic errors. However, this does not deter from our commitment to providing health care in the patient's best interest in mind. Dr. Darrick MD, PGY 2 Documentation for date of: 08/29/24 Subjective Subjective Interval history: No overnight events. Patient seen and examined at bedside. Patient reports generalized discomfort, shortness of breath, somewhat uncooperative with exam. Open to further treatment including dialysis if it becomes necessary. Pending surgery recommendations. When ultrasound revealed significant bladder mass, follow-up imaging ordered, urology consulted. Nephro consulted for severe kidney injury. Exam Vital Signs Temp Pulse Resp BP Pulse Ox O2 Del Method O2 Flow Rate 97.2 F 103 H 18 148/71 H 91 L Room Air 2 08/29/24 11:43 08/29/24 11:43 08/29/24 11:43 08/29/24 11:43 08/29/24 11:43 08/29/24 11:43 08/29/24 09:08 Narrative Exam General: AOx3, no acute distress, able to speak full sentences HEENT: NC/AT, mucous membranes moist, bilateral sclera anicteric Cardiovascular: regular rate and rhythm, S1/S2 present, no murmurs appreciated Pulmonary: crackles and mild wheezes appreciated on auscultation Abdominal: soft, non-tender, non-distended, no rebound/guarding, normal bowel sounds present Musculoskeletal: 2+ bilateral lower extremity pitting edema. Left hand deformity. Skin: ulcer 5 x 4 x 4 cm noted in right gluteal area, minimal laughlin drainage, foul-smelling Neuro: CN II-XII intact, no focal deficits Objective Labs 08/29/24 05:10 08/29/24 05:10 Labs: Laboratory Results - last 24 hr 08/28/24 08/29/24 08/29/24 19:56 05:10 10:33 WBC 40.2 H* 36.0 H* RBC 3.47 L 3.12 L Hgb 8.2 L 7.5 L Hct 27.8 L 24.9 L MCV 80 80 MCH 23.6 L 24.0 L MCHC 29.5 L 30.1 L RDW Std Deviation 69.5 H 69.4 H Plt Count 537 H D 484 H D Neut % (Auto) 91 H 88 H Lymph % (Auto) 2 L 3 L [place] % (Auto) 3 4 Eos % (Auto) 0 0 Baso % (Auto) 0 0 Neut # (Auto) 36.3 H 31.7 H Lymph # (Auto) 0.8 L 1.0 [place] # (Auto) 1.3 H 1.6 H Eos # (Auto) 0.1 0.1 Baso # (Auto) 0.0 0.1 Immature Gran # (Auto) 1.68 H 1.54 H Absolute Nucleated RBC 0.07 H 0.05 H Immature Gran % 4 H 4 H Nucleated RBC % 0 0 Smear Path Review Sent to Pathologist Cancelled ESR 44 H Sodium 139 139 Potassium 5.6 H 5.6 H Chloride 106 107 Carbon Dioxide 23.7 21.0 Anion Gap 9 11 BUN 75 H 79 H Creatinine 3.7 H 3.6 H Estim Creat Clear Calc Not Performed. Not Performed. eGFR 12 L* 13 L* BUN/Creatinine Ratio 20 22 H Glucose [address] Glu mg/dL 120 Hemoglobin A1c 5.8 Calculated Osmolality 299 H 300 H Lactic Acid 1.0 Calcium 10.1 9.3 Corrected Calcium 10.4 H Phosphorus 6.6 H Magnesium 2.0 Iron 25 L TIBC 226 L Iron Saturation 11 L Unsat Iron Binding 201 L Ferritin 53 Total Bilirubin < 0.2 L AST 11 ALT 10 Alkaline Phosphatase 148 H Total Creatine Kinase 22 L C-Reactive Prot, Quant 18.8 H Total Protein 6.9 Albumin 3.6 Globulin 3.3 Albumin/Globulin Ratio 1.1 L Procalcitonin 0.49 Ur Collection Type Urine Color Urine Clarity Urine pH Ur Specific [place] Urine Protein Urine Glucose (UA) Urine Ketones Urine Blood Urine Nitrite Urine Bilirubin Urine Urobilinogen (Auto) Ur Leukocyte Esterase Urine RBC Urine WBC Ur Squamous Epith Cells Ur Renal Epithelial Cell Urine Bacteria Random Vancomycin 11.0 Blood Type O Negative Antibody Screen NEGATIVE Blood Bank Wristband ID Yes 08/29/24 13:08 WBC RBC Hgb Hct MCV MCH MCHC RDW Std Deviation Plt Count Neut % (Auto) Lymph % (Auto) [place] % (Auto) Eos % (Auto) Baso % (Auto) Neut # (Auto) Lymph # (Auto) [place] # (Auto) Eos # (Auto) Baso # (Auto) Immature Gran # (Auto) Absolute Nucleated RBC Immature Gran % Nucleated RBC % Smear Path Review ESR Sodium Potassium Chloride Carbon Dioxide Anion Gap BUN Creatinine Estim Creat Clear Calc eGFR BUN/Creatinine Ratio Glucose Estimated Ave Glu mg/dL Hemoglobin A1c Calculated Osmolality Lactic Acid Calcium Corrected Calcium Phosphorus Magnesium Iron TIBC Iron Saturation Unsat Iron Binding Ferritin Total Bilirubin AST ALT Alkaline Phosphatase Total Creatine Kinase C-Reactive Prot, Quant Total Protein Albumin Globulin Albumin/Globulin Ratio Procalcitonin Ur Collection Type Clean Catch Urine Color Yellow Urine Clarity Hazy Urine pH 8.0 H Ur Specific [place] 1.016 Urine Protein 3+ A Urine Glucose (UA) Negative Urine Ketones Negative Urine Blood 2+ A Urine Nitrite Negative Urine Bilirubin Negative Urine Urobilinogen (Auto) Negative Ur Leukocyte Esterase Positive Urine RBC 83 H Urine WBC 898 H Ur Squamous Epith Cells 24 H Ur Renal Epithelial Cell 11 H Urine Bacteria None Random Vancomycin Blood Type Antibody Screen Blood Bank Wristband ID Quality Measures Quality Measures none Advance care planning discussed with:: patient Assessment & Plan Assessment Current Active Medications: Generic Name Dose Route Start Last Admin Trade Name Freq PRN Reason Stop Dose Admin Acetaminophen 650 mg 08/28/24 21:54 Acetaminophen 325 Mg Tablet PO 09/27/24 21:53 Q6H PRN Fever >101.5 Hydrocodone Bitart/Acetaminophen 1 tab 08/28/24 21:54 08/29/24 11:47 Hydrocodone/Apap 5/325 Tablet PO 09/02/24 21:53 1 tab Q4HR PRN Administration PAIN SCALE 4-6 (Moderate Albuterol/Ipratropium 3 ml 08/29/24 02:45 Albuterol/Ipratropium (Duoneb) Rt Lydia 3 Ml Nebu INH 09/27/24 22:59 Q4HRRT PRN wheeze Ascorbic Acid 500 mg 08/29/24 09:00 08/29/24 09:08 Ascorbic Acid 250 Mg Tablet PO 09/28/24 08:59 500 mg BID PORSCHE Administration Dextrose 25 ml 08/29/24 08:31 Dextrose 50%-Water Inj 50 Ml Syringe IV 09/28/24 08:30 Q15MIN PRN BG 50-70 responsive npo pt Dextrose 50 ml 08/29/24 08:31 Dextrose 50%-Water Inj 50 Ml Syringe IV 09/28/24 08:30 Q15MIN PRN BG <50 OR BG <70 & pt unresponsive Glucagon 1 mg 08/29/24 08:31 Glucagon Inj 1 Mg Vial IM Q15MIN PRN BG <70, and no IV access Sodium Chloride 1,000 mls @ 75 mls/hr 08/28/24 22:00 08/28/24 22:24 Ns IV 09/27/24 21:59 75 mls/hr .[id number] PORSCHE Administration Piperacillin/Tazobactam/Dextrose 50 mls @ 12.5 mls/hr 08/29/24 09:00 08/29/24 09:08 Zosyn IV 09/05/24 08:59 12.5 mls/hr Q12HR PORSCHE Administration Protocol Pharmacy Consult 1 each 08/29/24 09:00 Vancomycin Pharmacy To Dose 1 Each Each IV 09/28/24 08:59 QDAY PRN CONSULT Pharmacy Consult 1 each 08/29/24 08:39 Pharmacy Renal Dose Adjustment 1 Ea XX 09/28/24 08:38 PRN PRN CONSULT Vitamin B Complex/Vit C/Folic Acid 1 tab 08/29/24 09:00 08/29/24 09:08 Vit B12/Vit C/Fa (Nephrovite) Tablet PO 09/28/24 08:59 1 tab QDAY PORSCHE Administration Zinc Gluconate 50 mg 08/30/24 09:00 Zinc Gluconate 50 Mg Tablet PO 09/29/24 08:59 QDAY PORSCHE Plan 73-year-old female with significant past medical history of chronic smoker, spina bifida s/p surgery, neurogenic bladder with recurrent UTI, chronic osteomyelitis of right and left lower extremities, incompliant with IV antibiotics, anomalous left upper extremity, spinal cord tumor s/p surgical removal, hypertension, chronic gluteal ulcer since 2019 and repeated debridements per chart review presented to the hospital with chief complaints of worsening of the ulcer in right gluteal region and admitted for osteomyelitis of right ischium secondary to extension from posterior gluteal ulcer. #Osteomyelitis of right ischium Patient had history of chronic right posterior gluteal ulcer since 2019 and underwent recurrent debridement Patient had history of chronic osteomyelitis of lower extremities but per chart review patient did not complete IV antibiotic course. Patient had decreased sensation in lower extremities, lower abdomen and gluteal area secondary to spina bifida Presented with worsening of gluteal ulcer as patient is able to feel bone and also observed foul-smelling discharge from the ulcer. Also felt that her pain is extending down to knee joint. Denies fever, shortness of breath, abdominal pain, other associated complaints. On examination, there is approximately 5 x 3 x 4 cm ulcer which is extending up to the bone with minimal foul-smelling laughlin discharge. Labs showed WBC of 40.2, Hb 8.2, platelet count 537. CRP is 18.8. Procalcitonin is 0.[address] showed osteomyelitis of right ischium -Blood cultures are sent -Referral to wound care was done -Started on Zosyn and vancomycin [08/28- -zinc and vitamin C to promote wound healing -General Surgery, Dr. Lawrence was consulted, plan for debridement tomorrow -MRI of pelvis is ordered to assess the extension of the ulcer and osteomyelitis. -Infectious disease consulted, follow-up #Bladder mass Renal ultrasound ordered to evaluate acute kidney injury, patient found to have significant bilateral hydronephrosis and a partially calcified bladder mass 8.5 x 6.5 x 4.7 cm. -CT abdomen pelvis without contrast ordered, follow-up -Urology consult placed, appreciate recommendations #Acute on chronic kidney disease #Hyperkalemia #Neurogenic bladder Baseline creatinine is 1 in 01/2024, Creatinine in 07/2024 is 2, Creatinine at the time of admission is 3.7, BUN is 75. Potassium is 5.6. Duncan catheter placed -Started on IV fluids, NS at 75 mL/h -Encourage to take plenty of oral fluids -Monitor renal functions -Nephrology consulted, appreciate recommendations -Renally dose medications and avoid nephrotoxic medications -Veltassa given x 1 #Anemia Likely nutritional. Hemoglobin at the time of admission is 8.2, MCV 80, MCH 23.6, MCHC 29.5. Iron panel and ferritin was ordered, replenish as needed. -Nephro-Hilary is ordered -Multivitamin injection is ordered #Thrombocytosis, likely reactive in the setting of osteomyelitis Platelet count at the time of admission is 537 -Monitor CBC #History of hypertension Blood pressure at the time of admission is 144/66 mmHg, repeat blood pressure is 134/61 mmHg -Monitor blood pressures and add medication accordingly. #Chronic smoker #COPD Patient had a history of smoking since the age of 14, 12 cigarettes/day. On auscultation, diffuse wheeze heard. barrel-shaped chest is noted. Chest x-ray done in 08/02 showed hyperinflated lungs -DuoNebs -Recommended to educate on smoking cessation -Denied nicotine patch -Recommended to follow up in outpatient setting DVT prophylaxis: SCDs GI prophylaxis: None Diet: Cardiac, n.p.o. after midnight Lines: Peripheral IV, Duncan cath Code status: Full code Plan of care discussed with senior resident Dr. Hollingsworth PGY?[address] Homer Vila MD PGY?1 Attending Provider Attestation/Addendum I attest that I was physically present for the evaluation, physical examination, lab and imaging review of the patient with the residents. I discussed the case with the residents and agree with the findings and plans of care as documented above. Patient was admitted overnight for management of osteomyelitis of right ischium, ulcer of right upper thigh.? At bedside today, patient stated, she still has pain but is controlled with analgesics. Patient is planned for debridement tomorrow with general surgery. Patient also has RENAE, Nephrology on board. Renal US showed calcified bladder mass measuring 8.5 x 6.5 x 4.[address] with contrast but unable to perform due to patient?s kidney function. We will obtain CT abdomen/pelvis without contrast, discussed with Urology, agreed with the plan. We will continue with IV vancomycin and Zosyn pending culture results. We will obtain ID consult. Patient noted to have wheeze on auscultation, and is on supplemental oxygen, obtained Chest xray, shows COPD (bronchitis pattern), currently on duonebs. Patient received Veltassa for hyperkalemia, we will follow up with K level. Pending MRI right thigh. Gary Coronel MD
[2024-08-29 13:52] LABS: Creatinine MALB Rnd Ur 46 mg/dL (30-125); Creatinine,Random Urine 46 mg/dL (30-125); Microalbumin Creat Ratio 826 mg/gCrea (<30); Microalbumin, Random Urine > 380 mg/L (0-300); Potassium,Urine Random 41 mMol/L (12-62); Sodium,Urine Random 25.8 mMol/L (20.0-110.0)
--- NOTE | 2024-08-29 14:38 | PD.RESCONSUL ---
HPI Data of Consult Consult date: 08/29/24 Requesting Physician: Gary Coronel MD Admitting Provider: Minh Rivers MD Attending Provider: Gary Coronel MD Primary Care Provider: Dhiraj Last MD Consult Narrative Reason for consult: RENAE on CKD History of present illness: Traci Armando is a 73-year-old female with a past medical history of spina bifida status post surgery, spinal cord tumor status post resection, neurogenic bladder with chronic in/out cath and recurrent UTIs, chronic osteomyelitis of the right and left lower extremities, chronic gluteal ulcer since 2019 status post multiple debridements presents with worsening right gluteal ulcer. Patient recently noticed that her ulcer had become deeper and can feel bone. Associated severe pain down to knee with foul-smelling discharge, as well as fever, chills, and sweats. She also endorses dysuria, foul-smelling urine, and bilateral lower extremity swelling for the last few weeks. In ED, BP 114/66, HR 99, RR 18, temp 97.7 ?F, O2 92% on RA. WBC 40.2, Hgb 8.2, PLT 537, Na 139, K 5.6, BUN 75, Cr 3.7 (1.0 on 01/2024), CRP 18.8, Pro-Du WNL. CT right lower extremity: Soft tissue infection of posterior upper thigh (5.4 x 4.0 x 4.2 cm) with osteomyelitis of right ischium Renal ultrasound: Right kidney 11.8 x 4.8 x 5.0 cm with midpole cyst of 20 mm, left kidney 7 x 4 x 4.4 cm, bilateral hydronephrosis, partially calcified bladder mass of 8.5 x 6.5 x 4.7 cm Patient admitted for management of gluteal ulcer and nephrology consulted for management of acute on chronic kidney injury. 08/29: Patient seen and examined at bedside, resting comfortably in bed. No acute overnight events. Labs, imaging, and orders reviewed. Bladder mass noted and will consult urology, Dr. Beltrán. Urine microalbumin > 380 and microalbumin/Cr ratio 826. Recommend to continue IVF with albumin. cc:: cc: Gary Coronel MD Review of Systems Review of Systems Systems Reviewed: All systems reviewed, normal except as documented Past Medical History Past Medical History NEUROLOGIC: Positive Neurological Disorders and Spina Bifida; Negative Seizures CARDIAC: Positive Cardiac Disorders and Hypertension; Negative Congestive Heart Failure RESPIRATORY: Positive Respiratory Disorders, Wheezing, Smoking and Tobacco Use; Negative Chronic Obstructive Pulmonary Disease (COPD) GASTROINTESTINAL: Positive Gastrointestinal Disorders GENITOURINARY: Positive Genitourinary Disorders, Chronic Kidney Disease and Neurogenic Bladder; Negative Renal Disease MUSCULOSKELETAL: Positive Musculoskeletal Disorders, Arthritis, Osteoporosis and Osteomyelitis ENDOCRINE: Negative Endocrine Disorders, Diabetes Mellitus Type 1 or Diabetes Mellitus Type 2 HEMATOLOGIC: Positive Anemia OTHER HISTORY: Positive Hospitalization; Negative Blood Transfusions, Anesthesia Reactions or Cancer Social History SMOKING STATUS: Heavy (> 1 pack/day) SUBSTANCE USE: does not use Exam Vital Signs Temp Pulse Resp BP Pulse Ox O2 Del Method O2 Flow Rate 97.2 F 103 H 18 148/71 H 91 L Room Air 2 08/29/24 11:43 08/29/24 11:43 08/29/24 11:43 08/29/24 11:43 08/29/24 11:43 08/29/24 11:43 08/29/24 09:08 Narrative Exam General: AOx3, no acute distress, able to speak full sentences HEENT: NC/AT, mucous membranes moist, bilateral sclera anicteric Cardiovascular: regular rate and rhythm, S1/S2 present, no murmurs appreciated Pulmonary: crackles and mild wheezes appreciated on auscultation Abdominal: soft, non-tender, non-distended, no rebound/guarding, normal bowel sounds present Musculoskeletal: 1+ bilateral lower extremity pitting edema Skin: ulcer 5 x 4 x 4 cm noted in right gluteal area Neuro: CN II-XII intact, no focal deficits Results Labs 08/29/24 05:10 08/29/24 19:17 Labs: Short CBC 08/28/24 08/29/24 Range/Units 19:56 05:10 WBC 40.2 H* 36.0 H* (3.6-11.0) Thou/mm3 Hgb 8.2 L 7.5 L (12.0-16.0) g/dL Hct 27.8 L 24.9 L (36.0-46.0) % Plt Count 537 H D 484 H D (140-440) Thou/mm3 BMP 08/28/24 08/29/24 19:56 05:10 Sodium 139 139 Potassium 5.6 H 5.6 H Chloride 106 107 Carbon Dioxide 23.7 21.0 BUN 75 H 79 H Creatinine 3.7 H 3.6 H Glucose 102 81 Calcium 10.1 9.3 Cardiac Enzymes 08/29/24 Range/Units 10:33 Total Creatine Kinase 22 L (34-171) U/L Liver Function 08/28/24 Range/Units 19:56 Total Bilirubin < 0.2 L (0.3-1.2) mg/dL AST 11 (0-34) U/L ALT 10 (10-49) U/L Alkaline Phosphatase 148 H (46-116) U/L Albumin 3.6 (3.4-4.8) gm/dL Urine 08/29/24 Range/Units 13:08 Urine Color Yellow (Lt Yel-Yel) Urine Clarity Hazy (Clear/Hazy) Urine pH 8.0 H (5.0-7.0) Ur Specific [place] 1.016 (1.001-1.035) Urine Protein 3+ A (Neg - Trace) Urine Glucose (UA) Negative (Negative) Quality Measures Quality Measures none Advance care planning discussed with:: patient Medications Home Medications and Allergies Allergies Allergy/AdvReac Type Severity Reaction Status Date / Time ciprofloxacin [From Cipro] Allergy Severe Rash Verified 08/28/24 19:17 Visit Medications Acetaminophen (Acetaminophen 325 Mg Tablet) 650 mg PO Q6H PRN PRN Reason: Fever >101.5 Stop: 09/27/24 21:53 Hydrocodone Bitart/Acetaminophen (Hydrocodone/Apap 5/325 Tablet) 1 tab PO Q4HR PRN PRN Reason: PAIN SCALE 4-6 (Moderate Stop: 09/02/24 21:53 Last Admin: 08/29/24 11:47 Dose: 1 tab Albuterol/Ipratropium (Albuterol/Ipratropium (Duoneb) Rt Lydia 3 Ml Nebu) 3 ml INH Q4HRRT PRN PRN Reason: wheeze Stop: 09/27/24 22:59 Ascorbic Acid (Ascorbic Acid 250 Mg Tablet) 500 mg PO BID PORSCHE Stop: 09/28/24 08:59 Last Admin: 08/29/24 09:08 Dose: 500 mg Dextrose (Dextrose 50%-Water Inj 50 Ml Syringe) 25 ml IV Q15MIN PRN PRN Reason: BG 50-70 responsive npo pt Stop: 09/28/24 08:30 Dextrose (Dextrose 50%-Water Inj 50 Ml Syringe) 50 ml IV Q15MIN PRN PRN Reason: BG <50 OR BG <70 & pt unresponsive Stop: 09/28/24 08:30 Glucagon (Glucagon Inj 1 Mg Vial) 1 mg IM Q15MIN PRN PRN Reason: BG <70, and no IV access Sodium Chloride (Ns) 1,000 mls @ 75 mls/hr IV .[id number] [facility] Stop: 09/27/24 21:59 Last Admin: 08/28/24 22:24 Dose: 75 mls/hr Piperacillin/Tazobactam/Dextrose (Zosyn) 50 mls @ 12.5 mls/hr IV Q12HR [facility]; Protocol Stop: 09/05/24 08:59 Last Admin: 08/29/24 09:08 Dose: 12.5 mls/hr Pharmacy Consult (Vancomycin Pharmacy To Dose 1 Each Each) 1 each IV QDAY PRN PRN Reason: CONSULT Stop: 09/28/24 08:59 Pharmacy Consult (Pharmacy Renal Dose Adjustment 1 Ea) 1 each XX PRN PRN PRN Reason: CONSULT Stop: 09/28/24 08:38 Vitamin B Complex/Vit C/Folic Acid (Vit B12/Vit C/Fa (Nephrovite) Tablet) 1 tab PO QDAY [facility] Stop: 09/28/24 08:59 Last Admin: 08/29/24 09:08 Dose: 1 tab Zinc Gluconate (Zinc Gluconate 50 Mg Tablet) 50 mg PO QDAY [facility] Stop: 09/29/24 08:59 Discontinued Medications Albuterol/Ipratropium (Albuterol/Ipratropium (Duoneb) Rt Lydia 3 Ml Nebu) 3 ml INH Q4HRRT [facility] Stop: 09/27/24 22:59 Last Admin: 08/29/24 00:20 Dose: Not Given Albuterol/Ipratropium (Albuterol/Ipratropium (Duoneb) Rt Lydia 3 Ml Nebu) 3 ml INH X1 ONE Stop: 08/28/24 22:54 Last Admin: 08/28/24 23:46 Dose: Not Given Albuterol/Ipratropium (Albuterol/Ipratropium (Duoneb) Rt Lydia 3 Ml Nebu) 3 ml INH X1 ONE Stop: 08/29/24 08:20 Last Admin: 08/29/24 08:40 Dose: Not Given Calcium Gluconate (Calcium Gluconate 10% Inj 1 Gm/10 Ml Vial) 1 gm IV X1 ONE Stop: 08/29/24 08:40 Last Admin: 08/29/24 09:30 Dose: 1 gm Heparin Sodium (Porcine) (Heparin Sod Inj 5000 Unit/Ml Vial) 5,000 unit SC Q8HR [facility] Stop: 09/11/24 21:59 Last Admin: 08/29/24 05:32 Dose: 5,000 unit Heparin Sodium (Porcine) (Heparin Sod Inj 5000 Unit/Ml Vial) 5,000 unit SC BID [facility] Stop: 09/12/24 20:59 Piperacillin/Tazobactam/Dextrose (Zosyn) 3.375 gm in 50 mls @ 100 mls/hr IV X1 ONE Stop: 08/28/24 21:19 Last Infusion: 08/28/24 22:25 Dose: Infused Vancomycin HCl 1,000 mg/ (Sodium Chloride) 250 mls @ 150 mls/hr IV X1 ONE Stop: 08/28/24 22:30 Last Infusion: 08/28/24 23:59 Dose: Infused Piperacillin/Tazobactam/Dextrose (Zosyn) 3.375 gm in 50 mls @ 100 mls/hr IV Q6HR [facility] Stop: 09/04/24 21:55 Last Admin: 08/28/24 23:34 Dose: Not Given Piperacillin/Tazobactam/Dextrose (Zosyn) 2.25 gm in 50 mls @ 100 mls/hr IV Q8HR [facility] Stop: 09/04/24 21:56 Last Admin: 08/28/24 22:05 Dose: Not Given Vancomycin/Sodium Chloride (Vancomycin/Ns 750 Mg Ivpb) 750 mg in 150 mls @ 120 mls/hr IV X1 ONE Stop: 08/29/24 11:14 Last Admin: 08/29/24 10:47 Dose: 120 mls/hr Patiromer (Patiromer Calcium 8.4 Gm Packet (Non-Form)) 8.4 gm PO X1 ONE Stop: 08/29/24 09:01 Last Admin: 08/29/24 09:34 Dose: 8.4 gm Sodium Polystyrene Sulfonate (Sod Polystyrene Sulfon Susp 15 Gm/60 Ml Btl) 30 gm PO X1 ONE Stop: 08/28/24 21:56 Last Admin: 08/28/24 22:19 Dose: 30 gm Sodium Polystyrene Sulfonate (Sod Polystyrene Sulfon Susp 15 Gm/60 Ml Btl) 15 gm PO X1 ONE Stop: 08/29/24 08:20 Zinc Gluconate (Zinc Gluconate 50 Mg Tablet) 50 mg PO TID [facility]SCHE Stop: 09/28/24 05:59 Last Admin: 08/29/24 05:32 Dose: 50 mg Assessment & Plan Plan Traci Armando is a 73-year-old female with a past medical history of spina bifida status post surgery, spinal cord tumor status post resection, neurogenic bladder with chronic in/out cath and recurrent UTIs, chronic osteomyelitis of the right and left lower extremities, chronic gluteal ulcer since 2019 status post multiple debridements admitted for management of gluteal ulcer and nephrology consulted for management of acute on chronic kidney injury. #Acute on chronic kidney disease #Hydronephrosis #Bladder mass Admitted with creatinine 3.7, but as of 01/2024 creatinine was 1.0. Urine studies showed microalbumin > 380 and microalbumin/creatinine ratio of 826, indicating significant albuminuria in setting of multiple UTIs and significant hydronephrosis with bladder mass seen on ultrasound. ? Continue IV fluids ? Albumin 25 g IV twice daily ? Recommend holding CT until kidney function improves ? Urology consulted #Hyperkalemia #Osteomyelitis of right ischium #Secondary to extension from right gluteal ulcer since 2019 #Secondary to underlying spina bifida #History of chronic osteomyelitis of left and right lower extremities #Anemia #History of hypertension #Chronic smoker #? 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 Continue management per primary team ----- Plan discussed with attending physician Dr. Juan Win MD PGY-1 Internal Medicine Attending Provider Attestation/Addendum Patient seen and examined with resident physician Dr. aSnabria. Note reviewed, agree with findings and recommendations. Patient well-known to me from previous admissions. Admitted again with acute renal failure, sepsis suspect dehydration. She seems to be very tangential in her thought process. Finally agreed for Duncan catheter. CAT scan showed huge bladder mass. Needs urology evaluation due to bilateral hydronephrosis. Doubt Patient is an outpatient dialysis candidate due to her psychological issues. In the past she requested all her care to be at [facility]. No family around. Thank you Gary for allowing me to participate in the care of Ms. Armando
[2024-08-29] MEDS: ALBUMIN HUMAN 25% IVPB 25 GM/100 ML BTL IV ×2 (15:30→22:22)
--- NOTE | 2024-08-29 15:36 | PD.SURCONS ---
Meds Home Medications and Allergies Allergies Allergy/AdvReac Type Severity Reaction Status Date / Time ciprofloxacin [From Cipro] Allergy Severe Rash Verified 08/28/24 19:17 Exam Vital Signs Temp Pulse Resp BP Pulse Ox O2 Del Method O2 Flow Rate 97.2 F 104 H 18 148/71 H 91 L Room Air 2 08/29/24 11:43 08/29/24 12:00 08/29/24 11:43 08/29/24 11:43 08/29/24 11:43 08/29/24 11:43 08/29/24 09:08 Assessment & Plan Additional Assessment Additional comments: Impression: Patient has large ischial decubitus ulcer with necrotic tissue. I do not think this is causing the leukocytosis Plan Plan: We shall arrange for debridement of this necrotic tissue in the operating room tomorrow.
--- NOTE | 2024-08-29 16:25 | XR_ITS ---
Examination: CT abdomen and pelvis without contrast. Coronal 3-D reconstructions. Sagittal 2-D reconstructions. Date and time of exam:August 29, 2024 1749 hrs. Comparison: January 25, 2024 Indications: Generalized abdominal pain today, diagnosis markedly abnormal urinary bladder wall thickening on CT study January 25, 2024, large calcified mass in the bladder 8.5 cm on renal sonogram today CTDI: vol (mGy): 18 DLP: (mGycm): 945 Technique: Axial images of the abdomen have been obtained, 3 mm slice thickness Intravenous contrast material has not been administered. Low dose protocols were performed. One or more of the following dose reduction techniques were used; automated exposure control, adjustment of the mA and/or KV according to patient size, use of iterative reconstruction technique. Findings: 5 mm soft pulmonary nodule right lower lobe image 55 Small bilateral pleural effusions Cirrhosis, liver irregular in contour Cholelithiasis, gallbladder wall appears thickened Spleen is not enlarged No pancreatic mass Severe bilateral renal parenchymal scar formation with bilateral renal calcifications 2 to 4 mm Moderate to advanced bilateral hydronephrosis Heavy abdominal aortic calcification Normal appendix No bowel obstruction No diverticulitis Large amounts of stool in the rectum Large mass posterior margin of the bladder, sagittal image 114, measuring at least 7.4 x 5.1 cm with diffuse urinary bladder wall thickening Urinary Duncan catheter noted Abnormal soft tissue density extending from the posterior margin of the rectum to the skin surface, axial image 197, which could represent soft tissue infection versus posterior rectal mass, measuring 4.6 x 4.4 cm Bilateral likely infectious masses in the buttock regions with large soft tissue ulcer right buttock axial image 220 with air densities and cortical bone destruction posterior ischium Anasarca Impression: 5 mm soft pulmonary nodule right lower lobe, consider elective CT chest follow-up to exclude pulmonary nodular metastatic disease Cirrhosis Cholelithiasis, recommend gallbladder sonography follow-up to exclude cholecystitis Severe bilateral renal parenchymal scar formation Moderate to advanced bilateral hydronephrosis Large mass posterior margin of the bladder 7.4 x 5.1 cm consistent with bladder cancer, with diffuse thickening of the urinary bladder wall Large amounts of stool in the rectum with abnormal soft tissue density extending from the posterior margin of the rectum to the skin, 4.6 x 4.4 cm, differential would include infectious mass, rectal tumor mass extending posteriorly Infectious masses in the buttock regions bilaterally which large soft tissue ulcer right buttock with air densities and osteomyelitis posterior right ischium
--- NOTE | 2024-08-29 16:55 | PC.NURSE ---
Pt had a benson but only urine output of approx. 15 cc notes. Attempted to resure and reinforce the Benson Catheter; no changes observed. suggested pt. place hand in warm water to promote bladder relaxation, but pt. declined. Notified physician about situation for further evaluation and orders.
--- NOTE | 2024-08-29 17:05 | PC.NURSE ---
Md been notified for pt. bladder scan retaining 231ml. Bladdr distended. pt.complaining of discomfort
[2024-08-29] MEDS: SODIUM CHLORIDE 0.9% 1000 ML 1,000 ML 75 ML IV (17:36)
[2024-08-29 20:33] LABS: Alanine Aminotransferase 10 U/L (10-49); Albumin, Serum 3.5 gm/dL (3.4-4.8); Albumin/Globulin Ratio 1.4 (1.2-2.2); Alkaline Phosphatase 114 U/L (46-116); Anion Gap 11 (7-16); Aspartate Amino Transferase 12 U/L (0-34); BUN/Creatinine Ratio 21 Ratio (12-20); Bilirubin,Total < 0.2 mg/dL (0.3-1.2); Blood Urea Nitrogen 79 mg/dL (9-23); Calcium (Corrected) 9.4 mg/dL (8.5-10.1); Carbon Dioxide 21.3 mMol/L (20.0-31.0); Chloride 107 mMol/L (98-107); Creatinine (Component) 3.8 mg/dL (0.6-1.3); Globulin 2.5 gm/dL (2.3-3.5); Glucose 89 mg/dL (74-106); Osmolality,Calculated 300 (275-295); Potassium 5.3 mMol/L (3.4-5.1); Sodium 139 mMol/L (136-145); eGFR 12 See Note
--- NOTE | 2024-08-29 22:00 | PC.NURSE ---
Patient refused dressing changed, lab draw ( after several attempt), bladder scan and cleaning. States will call when ready. MD updated.
[2024-08-30] VITALS: BP 126/54; PULSE 97; PULSE 98; RESP 18; TEMP 36.7
[2024-08-30 04:00] VITALS: BP 137/50; PULSE 100; RESP 19; TEMP 36.8; O2SAT 100
[2024-08-30] MEDS: HYDROcodone/APAP 5/325 TABLET 1 TAB PO (05:49)
[2024-08-30] MEDS: ALBUTEROL/IPRATROPIUM (Duoneb) RT SOL 3 ML NEBU INH (07:48)
[2024-08-30 08:00] VITALS: BP 111/87; PULSE 102; PULSE 97; RESP 17; TEMP 36.4; O2SAT 95
[2024-08-30 08:07] VITALS: PULSE 102; RESP 20; O2SAT 100
[2024-08-30 08:10] VITALS: PULSE 92; RESP 18; O2SAT 98
[2024-08-30] MEDS: PIPER/TAZO 3.375 GM 50 ML IV (08:38)
[2024-08-30] MEDS: ASCORBIC ACID 250 MG TABLET 500 MG PO (08:39)
[2024-08-30] MEDS: ZINC GLUCONATE 50 MG TABLET PO (08:39)
[2024-08-30] MEDS: VIT B12/Vit C/FA (Nephrovite) TABLET 1 TAB PO (08:39)
[2024-08-30] MEDS: ALBUMIN HUMAN 25% IVPB 25 GM/100 ML BTL IV (08:39)
--- NOTE | 2024-08-30 08:39 | ESPR_ITS ---
Subjective Subjective Interval history: asked to see presumably for leucocytosis, but sacral osteo by imaging, bc are negative so far. pt has ckd prior hep c and hiv neg in january. recently. on vanco/zosyn per primary team. she is afebrile. and has been. Exam Vital Signs Temp Pulse Resp BP Pulse Ox O2 Del Method O2 Flow Rate 97.5 F 92 18 111/87 H 98 Nasal Cannula 3 08/30/24 08:00 08/30/24 08:10 08/30/24 08:10 08/30/24 08:00 08/30/24 08:10 08/30/24 08:00 08/30/24 08:10 Narrative Exam impressive du pt able to move legs. not a great historian though. states she is ambulatory Objective - Internal Medicine Labs 08/29/24 05:10 08/29/24 19:17 Labs: Laboratory Results - last 24 hr 08/29/24 08/29/24 08/29/24 05:10 10:33 13:08 WBC 36.0 H* RBC 3.12 L Hgb 7.5 L Hct 24.9 L MCV 80 MCH 24.0 L MCHC 30.1 L RDW Std Deviation 69.4 H Plt Count 484 H D Neut % (Auto) 88 H Lymph % (Auto) 3 L [place] % (Auto) 4 Eos % (Auto) 0 Baso % (Auto) 0 Neut # (Auto) 31.7 H Lymph # (Auto) 1.0 [place] # (Auto) 1.6 H Eos # (Auto) 0.1 Baso # (Auto) 0.1 Immature Gran # (Auto) 1.54 H Absolute Nucleated RBC 0.05 H Immature Gran % 4 H Nucleated RBC % 0 Smear Path Review Cancelled Sodium Potassium Chloride Carbon Dioxide Anion Gap BUN Creatinine Estim Creat Clear Calc eGFR BUN/Creatinine Ratio Glucose Calculated Osmolality Calcium Corrected Calcium Phosphorus 6.6 H Magnesium 2.0 Total Bilirubin AST ALT Alkaline Phosphatase Total Creatine Kinase 22 L Total Protein Albumin Globulin Albumin/Globulin Ratio Ur Collection Type Clean Catch Urine Color Yellow Urine Clarity Hazy Urine pH 8.0 H Ur Specific [place] 1.016 Urine Protein 3+ A Urine Glucose (UA) Negative Urine Ketones Negative Urine Blood 2+ A Urine Nitrite Negative Urine Bilirubin Negative Urine Urobilinogen (Auto) Negative Ur Leukocyte Esterase Positive Urine RBC 83 H Urine WBC 898 H Ur Squamous Epith Cells 24 H Ur Renal Epithelial Cell 11 H Urine Bacteria None Ur Random Creatinine 46 Ur Random Microalbumin > 380 H Ur Random Sodium 25.8 Ur Random Potassium 41 Ur Random Chloride 37.0 L U Creat (Microalbumin) 46 Microalb/Creat Ratio 826 H Blood Type O Negative Antibody Screen NEGATIVE Blood Bank Wristband ID Yes 08/29/24 19:17 WBC RBC Hgb Hct MCV MCH MCHC RDW Std Deviation Plt Count Neut % (Auto) Lymph % (Auto) [place] % (Auto) Eos % (Auto) Baso % (Auto) Neut # (Auto) Lymph # (Auto) [place] # (Auto) Eos # (Auto) Baso # (Auto) Immature Gran # (Auto) Absolute Nucleated RBC Immature Gran % Nucleated RBC % Smear Path Review Sodium 139 Potassium 5.3 H Chloride 107 Carbon Dioxide 21.3 Anion Gap 11 BUN 79 H Creatinine 3.8 H Estim Creat Clear Calc Not Performed. eGFR 12 L* BUN/Creatinine Ratio 21 H Glucose 89 Calculated Osmolality 300 H Calcium 9.0 Corrected Calcium 9.4 Phosphorus Magnesium Total Bilirubin < 0.2 L AST 12 ALT 10 Alkaline Phosphatase 114 D Total Creatine Kinase Total Protein 6.0 Albumin 3.5 Globulin 2.5 Albumin/Globulin Ratio 1.4 Ur Collection Type Urine Color Urine Clarity Urine pH Ur Specific [place] Urine Protein Urine Glucose (UA) Urine Ketones Urine Blood Urine Nitrite Urine Bilirubin Urine Urobilinogen (Auto) Ur Leukocyte Esterase Urine RBC Urine WBC Ur Squamous Epith Cells Ur Renal Epithelial Cell Urine Bacteria Ur Random Creatinine Ur Random Microalbumin Ur Random Sodium Ur Random Potassium Ur Random Chloride U Creat (Microalbumin) Microalb/Creat Ratio Blood Type Antibody Screen Blood Bank Wristband ID Assessment & Plan A&P Narrative LILIANA ostoe sacrum by imaging ckd4-5 other problems as noted empiric rx is what we do. ok for po doxy and iv rocephin 2 gm/day for 6 weeks for osteo, but unless you avoid pressure, this will not heal . please get weekly cbc, renal panel, esr with iv rx and remove iv at end of rx. du's will not improve without pressure avoidance. if she can not avoid pressure, then consider palliative eval and discussion. I will look in again monday if she remains in house Time Spent With Patient Time: Total time spent is greater than 50% in coordination of care (as documented) at patient's floor/unit and/or counseling patient:
--- NOTE | 2024-08-30 09:00 | ESPR_ITS ---
Documentation for date of: 08/30/24 Subjective Subjective Interval history: Traci Armando is a 73-year-old female with a past medical history of spina bifida status post surgery, spinal cord tumor status post resection, neurogenic bladder with chronic in/out cath and recurrent UTIs, chronic osteomyelitis of the right and left lower extremities, chronic gluteal ulcer since 2019 status post multiple debridements presents with worsening right gluteal ulcer. Patient recently noticed that her ulcer had become deeper and can feel bone. Associated severe pain down to knee with foul-smelling discharge, as well as fever, chills, and sweats. She also endorses dysuria, foul-smelling urine, and bilateral lower extremity swelling for the last few weeks. In ED, BP 114/66, HR 99, RR 18, temp 97.7 ?F, O2 92% on RA. WBC 40.2, Hgb 8.2, PLT 537, Na 139, K 5.6, BUN 75, Cr 3.7 (1.0 on 01/2024), CRP 18.8, Pro-Du WNL. CT right lower extremity: Soft tissue infection of posterior upper thigh (5.4 x 4.0 x 4.2 cm) with osteomyelitis of right ischium Renal ultrasound: Right kidney 11.8 x 4.8 x 5.0 cm with midpole cyst of 20 mm, left kidney 7 x 4 x 4.4 cm, bilateral hydronephrosis, partially calcified bladder mass of 8.5 x 6.5 x 4.7 cm Patient admitted for management of gluteal ulcer and nephrology consulted for management of acute on chronic kidney injury. 08/29: Patient seen and examined at bedside, resting comfortably in bed. No acute overnight events. Labs, imaging, and orders reviewed. Bladder mass noted and will consult urology, Dr. Beltrán. Urine microalbumin > 380 and microalbumin/Cr ratio 826. Recommend to continue IVF with albumin. 08/30: Patient seen and examined at bedside. Peers to be slightly lethargic compared to visit from yesterday. Noted to be on oxy mask saturating 97%. Inform nurse that patient has COPD and may be contribute to patient's mentation and recommended to keep between 88 to 92%. General surgery was also going to see patient, plans for I&D today but does not think is the cause of her leukocytosis given chronicity. Infectious disease also consulted. CT A/P yesterday showed 5 mm pulmonary nodule, cirrhosis, cholelithiasis, severe bilateral renal parenchymal scar formation with moderate/advanced hydronephrosis, bladder mass 7.4 x 5.1 cm again noted, rectal mass 4.6 x 4.4 cm, and infectious mass in buttock noted again. Renal function mildly decreased compared to yesterday, creatinine increased from 3.6 to 3.8, which is to be expected with hydronephrosis seen secondary to bladder mass. From nephrology standpoint, continue albumin and IVF. At approximately 11:30 AM, primary team had an extensive goals of care discussion with patient. She was updated regarding clinical condition and prognosis, including bladder mass, rectal mass, and lung nodule, and she expressed desires to end all treatment and to go home on hospice care. Exam Vital Signs Temp Pulse Resp BP Pulse Ox O2 Del Method O2 Flow Rate 97.5 F 92 18 111/87 H 98 Nasal Cannula 3 08/30/24 08:00 08/30/24 08:10 08/30/24 08:10 08/30/24 08:00 08/30/24 08:10 08/30/24 08:00 08/30/24 08:10 Narrative Exam General: AOx3, mildly somnolent HEENT: NC/AT, mucous membranes moist, bilateral sclera anicteric Cardiovascular: regular rate and rhythm, S1/S2 present, no murmurs appreciated Pulmonary: wheezing appreciated on auscultation bilaterally Abdominal: soft, non-tender, non-distended, no rebound/guarding, normal bowel sounds present Musculoskeletal: 1+ bilateral lower extremity pitting edema Skin: ulcer 5 x 4 x 4 cm noted in right gluteal area Neuro: CN II-XII intact, no focal deficits Objective Labs 08/30/24 10:22 08/30/24 10:22 Labs: Laboratory Results - last 24 hr 08/29/24 08/29/24 08/29/24 10:33 13:08 19:17 Sodium 139 Potassium 5.3 H Chloride 107 Carbon Dioxide 21.3 Anion Gap 11 BUN 79 H Creatinine 3.8 H Estim Creat Clear Calc Not Performed. eGFR 12 L* BUN/Creatinine Ratio 21 H Glucose 89 Calculated Osmolality 300 H Calcium 9.0 Corrected Calcium 9.4 Phosphorus 6.6 H Magnesium 2.0 Total Bilirubin < 0.2 L AST 12 ALT 10 Alkaline Phosphatase 114 D Total Creatine Kinase 22 L Total Protein 6.0 Albumin 3.5 Globulin 2.5 Albumin/Globulin Ratio 1.4 Ur Collection Type Clean Catch Urine Color Yellow Urine Clarity Hazy Urine pH 8.0 H Ur Specific [place] 1.016 Urine Protein 3+ A Urine Glucose (UA) Negative Urine Ketones Negative Urine Blood 2+ A Urine Nitrite Negative Urine Bilirubin Negative Urine Urobilinogen (Auto) Negative Ur Leukocyte Esterase Positive Urine RBC 83 H Urine WBC 898 H Ur Squamous Epith Cells 24 H Ur Renal Epithelial Cell 11 H Urine Bacteria None Ur Random Creatinine 46 Ur Random Microalbumin > 380 H Ur Random Sodium 25.8 Ur Random Potassium 41 Ur Random Chloride 37.0 L U Creat (Microalbumin) 46 Microalb/Creat Ratio 826 H Blood Type O Negative Antibody Screen NEGATIVE Blood Bank Wristband ID Yes Quality Measures Quality Measures none Advance care planning discussed with:: patient Assessment & Plan Assessment Current Active Medications: Generic Name Dose Route Start Last Admin Trade Name Freq PRN Reason Stop Dose Admin Acetaminophen 650 mg 08/28/24 21:54 Acetaminophen 325 Mg Tablet PO 09/27/24 21:53 Q6H PRN Fever >101.5 Hydrocodone Bitart/Acetaminophen 1 tab 08/28/24 21:54 08/30/24 05:49 Hydrocodone/Apap 5/325 Tablet PO 09/02/24 21:53 1 tab Q4HR PRN Administration PAIN SCALE 4-6 (Moderate Albuterol/Ipratropium 3 ml 08/29/24 02:45 08/30/24 07:48 Albuterol/Ipratropium (Duoneb) Rt Lydia 3 Ml Nebu INH 09/27/24 22:59 3 ml Q4HRRT PRN Administration wheeze Ascorbic Acid 500 mg 08/29/24 09:00 08/30/24 08:39 Ascorbic Acid 250 Mg Tablet PO 09/28/24 08:59 500 mg BID PORSCHE Administration Dextrose 25 ml 08/29/24 08:31 Dextrose 50%-Water Inj 50 Ml Syringe IV 09/28/24 08:30 Q15MIN PRN BG 50-70 responsive npo pt Dextrose 50 ml 08/29/24 08:31 Dextrose 50%-Water Inj 50 Ml Syringe IV 09/28/24 08:30 Q15MIN PRN BG <50 OR BG <70 & pt unresponsive Glucagon 1 mg 08/29/24 08:31 Glucagon Inj 1 Mg Vial IM Q15MIN PRN BG <70, and no IV access Sodium Chloride 1,000 mls @ 75 mls/hr 08/28/24 22:00 08/29/24 17:36 Ns IV 09/27/24 21:59 75 mls/hr .[id number] PORSCHE Administration Piperacillin/Tazobactam/Dextrose 50 mls @ 12.5 mls/hr 08/29/24 09:00 08/30/24 08:38 Zosyn IV 09/05/24 08:59 12.5 mls/hr Q12HR PORSCHE Administration Protocol Albumin Human 25 gm in 100 mls @ 100 mls/hr 08/29/24 15:00 08/30/24 08:39 Albuminar-25 Ivpb IV 09/01/24 14:59 100 mls/hr BID PORSCHE Administration Magnesium Hydroxide 30 ml 08/30/24 08:51 Milk Of Magnesia Susp 30 Ml Udc PO 09/29/24 08:50 QDAY PRN CONSTIPATION Protocol Pharmacy Consult 1 each 08/29/24 09:00 Vancomycin Pharmacy To Dose 1 Each Each IV 09/28/24 08:59 QDAY PRN CONSULT Pharmacy Consult 1 each 08/29/24 08:39 Pharmacy Renal Dose Adjustment 1 Ea XX 09/28/24 08:38 PRN PRN CONSULT Sennosides 1 tab 08/30/24 08:51 Senna Tablet PO 09/29/24 08:50 QDAY PRN CONSTIPATION Protocol Vitamin B Complex/Vit C/Folic Acid 1 tab 08/29/24 09:00 08/30/24 08:39 Vit B12/Vit C/Fa (Nephrovite) Tablet PO 09/28/24 08:59 1 tab QDAY PORSCHE Administration Zinc Gluconate 50 mg 08/30/24 09:00 08/30/24 08:39 Zinc Gluconate 50 Mg Tablet PO 09/29/24 08:59 50 mg QDAY PORSCHE Administration Plan Traci Armando is a 73-year-old female with a past medical history of spina bifida status post surgery, spinal cord tumor status post resection, neurogenic bladder with chronic in/out cath and recurrent UTIs, chronic osteomyelitis of the right and left lower extremities, chronic gluteal ulcer since 2019 status post multiple debridements admitted for management of gluteal ulcer and nephrology consulted for management of acute on chronic kidney injury. #Acute on chronic kidney disease #Hydronephrosis #Obstructive uropathy #Bladder mass Admitted with creatinine 3.7, but as of 01/2024 creatinine was 1.0. Urine studies showed microalbumin > 380 and microalbumin/creatinine ratio of 826, indicating significant albuminuria in setting of multiple UTIs and significant hydronephrosis with bladder mass seen on ultrasound and CT. ? Continue IV fluids ? Albumin 25 g IV twice daily ? Urology consulted #Hyperkalemia #Osteomyelitis of right ischium #Secondary to extension from right gluteal ulcer since 2019 #Secondary to underlying spina bifida #History of chronic osteomyelitis of left and right lower extremities #Anemia #History of hypertension #Chronic smoker #? COPD #Pulmonary nodule #Neurogenic bladder with recurrent UTIs #History of spinal cord tumor s/p removal #Anomalous left upper extremity ? Continue management per primary team ----- Plan discussed with attending physician Dr. Juan Win MD PGY-1 Internal Medicine Attending Provider Attestation/Addendum Patient seen and examined with resident physician Dr. Sanabria. Note reviewed, agree with findings and recommendations. Long conversation with patient-declined any procedures. Declined blood draws. Comfort care seems to be appropriate. Will discuss with primary team.
[2024-08-30] MEDS: SODIUM CHLORIDE 0.9% 1000 ML 1,000 ML 75 ML IV (09:02)
[2024-08-30 10:36] LABS: Basophils # (Auto) 0.1 Thou/mm3 (0.0-0.2); Basophils % (Auto) 0 % (0-2.5); Eosinophils # (Auto) 0.3 Thou/mm3 (0.0-0.5); Eosinophils % (Auto) 1 % (0-10); Hematocrit 21.4 % (36.0-46.0); Immature Granulocytes % (Auto) 3 % (0-0); Immature Granulocytes Auto 1.09 Thou/mm3 (0.00-0.00); Lymphocytes # (Auto) 1.1 Thou/mm3 (1.0-4.8); Lymphocytes % (Auto) 3 % (10-50); Mean Corpuscular HGB Conc 29.4 g/dl (31.0-37.0); Mean Corpuscular Hemoglobin 23.6 pg (25.0-35.0); Mean Corpuscular Volume 80 fL (80-100); Monocytes # (Auto) 1.7 Thou/mm3 (0.0-0.8); Monocytes % (Auto) 5 % (0-12); Neutrophils # (Auto) 31.1 Thou/mm3 (1.8-7.7); Neutrophils % (Auto) 88 % (37-80); Nucleated Red Blood Cell # 0.04 Thou/mm3 (0.00-0.00); Nucleated Red Blood Cell % 0 /100 WBC (0); Platelet Count 345 Thou/mm3 (140-440); RDW Standard Deviation 70.5 fL (36.4-46.3); Red Blood Count 2.67 Miln/mm3 (4.00-5.20)
[2024-08-30 10:41] LABS: White Blood Count 35.4 Thou/mm3 (3.6-11.0)
[2024-08-30 10:44] LABS: Hemoglobin 6.3 g/dL (12.0-16.0)
[2024-08-30 11:13] LABS: Anion Gap 11 (7-16); BUN/Creatinine Ratio 21 Ratio (12-20); Bilirubin,Total < 0.2 mg/dL (0.3-1.2); Blood Urea Nitrogen 81 mg/dL (9-23); Calcium 9.3 mg/dL (8.3-10.6); Carbon Dioxide 21.7 mMol/L (20.0-31.0); Chloride 108 mMol/L (98-107); Creatinine (Component) 3.9 mg/dL (0.6-1.3); Glucose 89 mg/dL (74-106); Magnesium 1.9 mg/dL (1.6-2.6); Osmolality,Calculated 304 (275-295); Phosphorous 6.6 mg/dL (2.4-5.1); Potassium 4.9 mMol/L (3.4-5.1); Sodium 141 mMol/L (136-145); eGFR 12 See Note
[2024-08-30 11:14] LABS: Alanine Aminotransferase < 7 U/L (10-49); Albumin, Serum 3.9 gm/dL (3.4-4.8); Albumin/Globulin Ratio 1.8 (1.2-2.2); Alkaline Phosphatase 89 U/L (46-116); Aspartate Amino Transferase < 8 U/L (0-34); Calcium (Corrected) 9.4 mg/dL (8.5-10.1); Globulin 2.2 gm/dL (2.3-3.5); Total Protein 6.1 gm/dL (5.7-8.2); Vancomycin,Random 14.7 mcg/mL
[2024-08-30 12:00] VITALS: BP 95/41; PULSE 93; RESP 17; TEMP 36.3; O2SAT 96
--- NOTE | 2024-08-30 12:26 | PC.SS ---
Addendum entered by YANG Ramirez 08/30/24 15:03: SS update: SNF inquiry and hospice referral sent via [employer]. Pending responses. Addendum entered by YANG Ramirez 08/30/24 13:45: SS follow up: spoke with patient's friend, Jessica to discuss the discharge plan for the patient. Jessica is aware patient is pursuing hospice services. Discussed with Jessica the idea of home placement vs SNF placement with hospice services for the patient. Jessica informed this writer technical publications, that if the patient wants to go home, Jessica would be able to help out a few times during the day, however would not be available to assist with patient's care 24 hrs a day. Jessica informed she would be coming by to speak with the patient to discuss the discharge plan. Original Note: SS follow up: Goals of care discussion held with the patient, Dr. Hollingsworth and attending Dr. Coronel. At this time medical prognosis discussed and hospice services discussed. Patient is agreeable to hospice services. Patient would like to discuss with her friend Jessica first to inform of what is going on and if able to return home with hospice services with the help of care from patient's friend. Hospice order requested.
[2024-08-30 12:50] LABS: Path Review Blood Smear Sent to Pathologist
--- NOTE | 2024-08-30 12:51 | PC.NURSE ---
pt. refusing Refusing Blood and any treatment at this time. MD lynch.
--- NOTE | 2024-08-30 13:20 | PC.NURSE ---
Dr. Beltrán on bedside. Pt. refusing any kind of treatment at this time. Per pt. she is saying she wanted to be just comfortable.
--- NOTE | 2024-08-30 14:15 | EVENTNT_ITS ---
<Statement entered by Yon Hollingsworth MD - 08/30/24 14:30> I saw and examined the patient, and I agree with current management stated by Dr Cadence MD,PGY1. Plan of care was discussed with the attending physician and resident physician. Disclaimer: Despite multiple revisions, due to the dictation software being used, the document bellow may not be free of grammatical errors including phonetic/typographic errors. However, this does not deter from our commitment to providing health care in the patient's best interest in mind. Dr. Darrick MD, PGY 2 Documentation for date of: 08/30/24 Event Note Event Note: Extensive goals of care conversation held with patient approximately 11:30 AM. Patient was updated on her status, including bladder mass, rectal mass, lung nodule. Patient expressed understanding of these conditions and the potential treatment and workup plan, expressed desire to end all treatment. Patient decided she preferred to go home on hospice care. squadron worker consulted to discuss options for hospice. All other treatment/workup is on hold at this time. Plan of care discussed with senior resident Dr. Hollingsworth PGY?2. David Vila MD PGY-1
[2024-08-30 14:26] LABS: Cocci Serology, IgM Negative (Negative)
--- NOTE | 2024-08-30 15:34 | PC.PT ---
Patient is now transferring to hospice services. Will cancel PT evaluation.
--- NOTE | 2024-08-30 16:00 | PC.NURSE ---
Pt. asking to leave right now. She said she wants to leave right no. she dont need no treatmernt. she wanted to go home now. MD been made aware and per MD they are on their way
--- NOTE | 2024-08-30 16:20 | PC.NURSE ---
Pt. refusing to get the IV out and benson out at the mopment wants to go AMA. The team is here trying to talk to pt. PT. refusing any treatment and just wants to proceed with leaving AMA.
--- NOTE | 2024-08-30 16:33 | ESDS_ITS ---
<Statement entered by Yon Hollingsworth MD - 08/30/24 16:37> I saw and examined the patient, and I agree with current management stated by Dr Cadence MD,PGY1. Plan of care was discussed with the attending physician and resident physician. Disclaimer: Despite multiple revisions, due to the dictation software being used, the document bellow may not be free of grammatical errors including phonetic/typographic errors. However, this does not deter from our commitment to providing health care in the patient's best interest in mind. Dr. Darrick MD, PGY 2 Planned Discharge Date 08/30/24 DS: Providers Provider Date of admission: 08/28/24 21:54 Primary care physician: Dhiraj Last MD Admitting Provider: Minh Rivers MD Attending Provider on Admission: Gary Coronel MD Consults: 08/28/24 21:31 Consult to General Surgery Stat Comment: Infected chronic wound right gluteal area Consulting Provider: Megan Horn 08/29/24 02:42 Referral Wound Care Routine Comment: 08/29/24 08:21 Consult to Nephrology Routine Comment: Consulting Provider: Nicolasa Martinez 08/29/24 11:10 Consult to Infectious Diseases Routine Comment: Consulting Provider: Compa Loco 08/29/24 16:05 Consult to Urology Urgent Comment: Bladder mass, CKD Consulting Provider: María Beltrán 08/30/24 12:13 Referral Hospice Stat Comment: Attending Provider on DC: Gary Coronel MD Discharging Provider: Gary Coronel MD DS: Diagnosis Problem List Completed Was Problem List Reviewed/Reconciled?: Yes Hospital Course Hospital Course Hospital course: 73-year-old female with a past medical history of spina bifida status post surgery, spinal cord tumor status post resection, neurogenic bladder with chronic in/out cath and recurrent UTIs, chronic osteomyelitis of the right and left lower extremities, 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 Patient recently noticed that her ulcer had become deeper and can feel bone. Associated severe pain down to knee with foul-smelling discharge, as well as fever, chills, and sweats. She also endorsed dysuria, foul-smelling urine, and bilateral lower extremity swelling for the last few weeks. Patient admitted for management of gluteal ulcer and nephrology consulted for management of acute on chronic kidney injury. Renal ultrasound was performed which showed bilateral hydronephrosis and a bladder mass. CT abdomen/pelvis without contrast was ordered for further evaluation, which revealed partially calcified bladder mass concerning for cancer, rectal mass concerning for cancer versus infectious mass. Urology was consulted. Patient was initially scheduled for debridement but morning labs sh owed decrease in hemoglobin to 6.3, treatment was deferred for PRBC transfusion. Patient is updated on her overall status, extensive held in setting of masses seen on imaging concerning for cancer, ongoing infection, active bleeding with significant drop in hemoglobin. Patient decided she wanted no further treatment, usually placed on hospice care. After conversation with social regarding hospice options, patient decided she no longer wished to proceed with treatment or hospice. Risks of not receiving hospice care or treatment were explained to patient, patient expressed understanding and decided to leave hospital AMA. community service worker spoke to patient's before leaving, patient mention he might be able to arrange at home hospice, received number for hospice. Patient then left AMA. Diagnoses: #Osteomyelitis of right ischium #Bladder mass #Acute on chronic kidney disease #Hyperkalemia #Neurogenic bladder #Anemia #Thrombocytosis, likely reactive in the setting of osteomyelitis #History of hypertension #Chronic smoker #COPD Plan of care discussed with senior resident Dr. Hollingsworth PGY?[address] Coronel. David Vila MD PGY-1 Time Spent with Patient Time attestation: Total time spent providing and/or coordinating discharge services: Exam Vital Signs Temp Pulse Resp BP Pulse Ox O2 Del Method O2 Flow Rate 97.4 F 93 17 95/41 L 96 Nasal Cannula 3 08/30/24 12:08/30/24 12:08/30/24 12:08/30/24 12:08/30/24 12:08/30/24 12:08/30/24 12:00 Narrative Exam General: AOx3, no acute distress, able to speak full sentences HEENT: NC/AT, mucous membranes moist, bilateral sclera anicteric Cardiovascular: regular rate and rhythm, S1/S2 present, no murmurs appreciated Pulmonary: crackles and mild wheezes appreciated on auscultation Abdominal: soft, non-tender, non-distended, no rebound/guarding, normal bowel sounds present Musculoskeletal: 2+ bilateral lower extremity pitting edema. Left hand deformity. Skin: ulcer 5 x 4 x 4 cm noted in right gluteal area, minimal laughlin drainage, foul-smelling Neuro: CN II-XII intact, no focal deficits Discharge Plan Plan Patient Disposition: Left Against Medical Advice Prescriptions/Referrals Prescriptions/Med Rec: Discontinued sulfamethoxazole-trimethoprim [Bactrim DS] 800-160 mg tablet 1 tab PO BID Qty: 20 0RF Referrals: Dhiraj Last MD [Primary Care Provider] - Patient/Caregiver Discharge Instructions Discharge Activity: activity as tolerated Print Language: Iranian Quality Discharge Quality Measures VTE prophylaxis MD Attestestation MD Attestation I attest that I was physically present for the evaluation, physical examination, lab and imaging review of the patient with the residents. I discussed the case with the residents and agree with the findings and plans of care as documented above. Had a very long discussion with the patient this morning along with internal medicine team, patient's nurse, caseworker protective services at bedside. Explained in detail about the patient's current condition including her bladder mass, rectal mass, lung nodule found on the imaging. Also discussed about her ulcer, osteomyelitis and downtrending hemoglobin with unconfirmed unconfirmed source for now. Discussed about further treatment options including aggressive management with further imaging for the masses, possible cystoscopy and biopsy with urology, wound debridement with general surgery and possible future biopsies for rectal mass/pulmonary nodule. Also presented with the need for blood transfusion due to her very low hemoglobin level. Also presented her with option for refusal of aggressive medical management and hospice care. Patient stated, she understood her ongoing problem, stated understanding that it might lead to her if she does not continue with aggressive management but stated that she does not want any aggressive management including blood transfusion or any further workup on her masses. She initially wanted to proceed with hospice care, stated she will discuss with her friend and decide on home hospice versus hospice at SNF. Later during the evening, was called by the nurse stating that patient wants to leave AMA. Went to the patient room, tried to explain her to wait for the arrangements for hospice care to be made. But patient stated that she wants to go home right away and does not want to wait and decided to leave AMA. Gary Coronel MD
--- NOTE | 2024-08-30 16:34 | PC.SS ---
SS update: was informed by medical team that the patient wants to leave AMA. Met at bedside with the patient and she was adamant she wanted to leave home. Patient declined the need to set up hospice before she discharged from the hospital. Patient was upset yet agreeable to provide hospice agency her contact information in hopes she can connect with services in the near future. Bed side nurse and medical team updated.
[2024-08-31 14:49] LABS: Cocci Serology, IgG Negative (Negative)
--- NOTE | 2024-09-02 13:38 | ESCONSULT_ITS ---
RE: RICHARD INFANTE : 1950 DATE OF CONSULTATION: 08/30/2024 CHIEF COMPLAINT: 1. Acute on chronic kidney disease. 2. Hyperkalemia. 3. Anemia. 4. Osteomyelitis of right ischium secondary to right gluteal ulcer since 2019. 5. A mass in the bladder. HISTORY OF PRESENT ILLNESS: This is a 73-year-old female. She has significant past medical history of: 1. Chronic smoker. 2. Spina bifida. 3. Neurogenic bladder on intermittent catheterization and recurrent UTI. 4. Chronic osteomyelitis. She was admitted in the hospital. She was found to have a mass in the bladder. Because of mass in the bladder, I was consulted. The patient denies any history of gross hematuria. In the past, the patient has been seen by urologist and according to the patient, she told me she knew what it is and she does not want any surgical procedure to be done. I had ordered a CAT scan with the stone protocol because she cannot have a CAT scan with contrast due to renal failure. This revealed bilateral mild hydronephrosis as a result of urinary retention. PAST MEDICAL HISTORY: 1. Chronic smoker. 2. Spinal bifida status post surgery. 3. Neurogenic bladder on intermittent catheterization. 4. Osteomyelitis. This patient was seen by me with the resident as well as with the nurse. PHYSICAL EXAMINATION: VITAL SIGNS: Stable. They are in the HPI, in EMR. GENERAL: Condition is satisfactory. She is awake and alert, lying in the bed, not in acute distress. VARIOUS LABS: Her serum sodium is 139, potassium is 5.6, BUN is 75, creatinine is 3.7. She has an indwelling Duncan catheter. RECOMMENDATIONS: After talking to the patient and talking to the resident, the patient does not want any invasive treatment to be instituted. She would want to be a hospice patient. moving worker is in the process of contacting the hospice and no active treatment at this time is entertained by the patient. DT: 16:13:47 TT: 23:24:00 Ref: - TID: [id number]
== END 2024-08-30 16:42 | disposition left against medical advice (07) | DRG 540 ==
LOC: SERX 19:50 → SERHOLD 22:30 → S3SX 08-29 06:46
PROVIDERS: Nurse Practitioner Family; Student in an Organized Health Care Education/Training Program; Admitting Provider Internal Medicine; Emergency Provider Emergency Medicine; PCP Family Medicine; Visit Provider Student in an Organized Health Care Education/Training Program
DX: M86.651 Other chronic osteomyelitis, right thigh (principal); I96 Gangrene, not elsewhere classified; N13.30 Unspecified hydronephrosis; N17.9 Acute kidney failure, unspecified; L89.319 Pressure ulcer of right buttock, unspecified stage; E87.5 Hyperkalemia; K59.09 Other constipation; D75.838 Other thrombocytosis; J44.9 Chronic obstructive pulmonary disease, unspecified; N31.9 Neuromuscular dysfunction of bladder, unspecified; N30.20 Other chronic cystitis without hematuria; Q05.9 Spina bifida, unspecified; D75.839 Thrombocytosis, unspecified; R91.1 Solitary pulmonary nodule; N32.89 Other specified disorders of bladder; K62.89 Other specified diseases of anus and rectum; I12.9 Hypertensive chronic kidney disease with stage 1 through stage 4 chronic kidney disease, or unspecified chronic kidney disease; N18.9 Chronic kidney disease, unspecified; D63.1 Anemia in chronic kidney disease; Q74.0 Other congenital malformations of upper limb(s), including shoulder girdle; F17.210 Nicotine dependence, cigarettes, uncomplicated; Z87.440 Personal history of urinary (tract) infections; Z66 Do not resuscitate; Z51.5 Encounter for palliative care; Z53.29 Procedure and treatment not carried out because of patient's decision for other reasons
CPT/HCPCS: 36415; 71045; 73700; 74176; 76770; 80048; 80053; 80202; 81001; 82043; 82436; 82550; 82570; 82728; 83036; 83540; 83550; 83605; 83735; 84100; 84132; 84133; 84145; 84300; 85025; 85652; 86140; 86331; 86635; 86850; 86900; 86901; 86923; 87040; 87077; 87081; 87086; 87186; 93005; 93225; 93306; 94640; 94664; 96365; 96366; 96372; 99285; A9270; J0612; J1644; J2543; J3370; J3490; J7030; J7050; P9047

== ENCOUNTER 2024-09-04 04:39 | Inpatient (IN) | payer MEDICARE, MEDICAID, SELFPAY ==
[2024-09-04] VITALS (121 sets, daily range): BP systolic 4–171; BP diastolic 4–75; PULSE 0–226; RESP 0–89; TEMP 32.8–33.1; O2SAT 51–100; BMI 28.3
[2024-09-04] MEDS: DEXTROSE 50%-WATER INJ 50 ML SYRINGE IV ×5 (04:40→14:30)
--- NOTE | 2024-09-04 04:41 | EDNOTE_ITS ---
Altered Mental Status RME/HPI General Chief Complaint: Altered Mental Status Stated Complaint: AMS Time Seen by Provider: 09/04/24 05:49 Arrival date/time: 09/04/24 04:39 RME / HPI RME / HPI narrative: Dr. Sawant's Main ED Evaluation: 73yo female BRINA from home presents to the ED for a chief complaint of AMS. Patient was seen by me immediately upon arrival at 0436. Per EMS, patient's friend called 911 due to the patient being altered. En route, EMS noted a blood pressure of 140/80, heart rate in the 60s, and a blood sugar that was low (less than 25), so they administered D10 via an EJ they placed. Here in the ED, patient's blood sugar reads low . Patient is awake, but is unable to provide any history. Full ROS is unobtainable due to the patient's AMS. PMHx: spina bifida status post surgery, spinal cord tumor status post resection, neurogenic bladder with chronic in/out cath and recurrent UTIs, chronic osteomyelitis of the right and left lower extremities, chronic gluteal ulcer s guru 2019 status post multiple debridements, COPD, HTN, CKD Related Data Allergies Allergy/AdvReac Type Severity Reaction Status Date / Time ciprofloxacin [From Cipro] Allergy Severe Rash Verified 09/04/24 04:48 Review of Systems Review of Systems ROS Unobtainable: unobtainable due to medical condition ED Exam General General appearance: Present lethargic (but awake, answers questions by shaking her head) and other (appears very dehydrated; significant facial wasting; disheveled) Head Head exam: Present atraumatic and normocephalic Eye Eye exam: Present PERRL and scleral icterus ENT ENT exam: Present normal oropharynx, mucous membranes dry and other (poor dentures) Neck Neck exam: Present normal inspection, full ROM and trachea midline Chest Chest inspection: Present symmetric chest wall rise and other (barrel chested) Respiratory Respiratory exam: Present other (decreased breath sounds bilaterally) Cardiovascular Cardiovascular exam: Present regular rate and normal rhythm Abdominal Exam Abdominal exam: Present soft; Absent distention or tenderness Extremities Exam Extremities exam: Present other (deformity of the left hand; normal sensations to BLE, full ROM of BUE; can move both of her feet) Neurological Exam Neurological exam: Present other (awake, but lethargic) Skin Skin exam: Present mottled (to the BLE) and other (3 x 5 cm ulcer at the right buttock without any surrounding erythema or discharge); Absent diaphoresis Course Course Course Narrative: 0521: Patient is awake, can respond to questions. When asked, she does not want to be intubated or resuscitated. CXR is ordered for determining the etiology of AMS. Quality Measures none Orders Category Date Time Status Bedside Blood Glucose NOW Care 09/04/24 05:05 Active Aviation T[employer]ical Readiness Officer NOW Care 09/04/24 05:05 Active Continuous Pulse Oximetry NOW Care 09/04/24 05:05 Completed EKG (ED ONLY) *Do not use* NOW Care 09/04/24 04:55 Completed Initiate Warming Therapy NOW Care 09/04/24 05:47 Active Insert IV NOW Care 09/04/24 05:05 Active Urinary Catheter NOW Care 09/04/24 05:05 Active EKG (ED Only) Stat Exams 09/04/24 04:55 Ordered XR chest 1V SEPSIS PROTOCOL Stat Exams 09/04/24 05:49 Taken Alcohol, Blood Medical Stat Lab 09/04/24 05:00 Received Ammonia Stat Lab 09/04/24 05:20 Received Blood Culture (Lab) Stat Lab 09/04/24 05:06 Ordered CBC Stat Lab 09/04/24 05:20 Results Comprehensive Metabolic Panel Stat Lab 09/04/24 05:00 Received Drug Screen,Urine Stat Lab 09/04/24 05:06 Ordered Partial Thromboplastin Time Stat Lab 09/04/24 05:[address] Review Blood Smear Stat Lab 09/04/24 05:20 Results Prothrombin Time with INR Stat Lab 09/04/24 05:20 Completed Troponin I Stat Lab 09/04/24 05:00 Received Urinalysis Stat Lab 09/04/24 05:45 Ordered Urine Culture Stat Lab 09/04/24 05:45 Ordered Dextrose 50% Syr [D50w Syringe Abboject] Med 09/04/24 04:54 Discontinued 50 ml IV X1 ONE Dextrose 50% Syr [D50w Syringe Abboject] Med 09/04/24 04:55 Discontinued 50 ml IV X1 ONE Dextrose 50% Syr [D50w Syringe Abboject] Med 09/04/24 05:01 Discontinued 50 ml IV X1 ONE Oxygen Delivery NOW RT 09/04/24 05:05 Active Vital Signs Vital signs: Vital Signs Temperature 91.2 F L 09/04/24 04:40 Pulse Rate 71 09/04/24 04:40 Respiratory Rate 22 H 09/04/24 04:40 Blood Pressure 117/46 L 09/04/24 04:40 Pulse Oximetry (%) 100 09/04/24 04:40 Oxygen Delivery Method Room Air 09/04/24 04:40 Oxygen Flow Rate 2 09/04/24 04:40 Altered Mental Status MDM Narrative MDM Narrative:: 73-year-old female with multiple medical problems to include spina bifida, COPD, neurogenic bladder, spinal tumor, hypertension, chronic UTI, chronic osteo bilaterally lower extremities, recently discharged on 117 when the patient left AMA. She had been admitted for osteomyelitis of the right ischium. Patient has baseline CBC and white count with anemia and white cells around 30-40,000. Patient returns for recurrent hypoglycemia at home status post multiple dosages of D5 patient's sugar has improved to normal. By report by EMS she was staying with her friend that she is known for a month and a half and she had altered the status and on their arrival her glucose was approximately 10. While in the emergency department the patient is back to baseline with a GCS of 15, states that she does not want intubation and/or resuscitation, blood pressure is now 117 systolic with a pulse of 60, patient is hypothermic at 91.2 and a O2 sat of 100% on 2 L. EKG in the emergency department does not show ST elevation GA. I was able to look at her previous record and at this time she does not have any worsening sacral ulcer at least based on my exam and looking at the pictures and the size from the previous notes. All labs are pending and at this time the patient is on a D10 drip at 100 mL/h. Patient data External records reviewed:: [facility] previous records (Reviewed inpatient notes from 08/28/24-08/30/24, at which time, Dr. Loco recommended Rocephin and Doxycycline due to these abx not affecting her renal function.) Clinical information provided by:: EMS Social determinants that could affect healthcare access:: none Patient has the following chronic illnesses:: spina bifida status post surgery, spinal cord tumor status post resection, neurogenic bladder with chronic in/out cath and recurrent UTIs, chronic osteomyelitis of the right and left lower extremities, chronic gluteal ulcer since 2019 status post multiple debridements, COPD, HTN, CKD How is presenting disease/condition affected by chronic disease/condition?: caused by Evaluation data The following diagnostics were reviewed and interpreted by me:: lab results, radiology exam(s) and EKG tracing(s) Lab and/or radiology exams considered but not ordered:: none Interpretation Summary: Bloodwork and diagnostics are pending at signout. EKG done at 0448, NSR, rate of 60, low voltage, no evidence of Brugada syndrome, no STEMI, according to my interpretation. Medications / Prescriptions Medications or Prescriptions considered but not ordered:: none Medication administrations:: Medication Administration History Discontinued Medications Dextrose (Dextrose 50%-Water Inj 50 Ml Syringe) 50 ml IV X1 ONE Stop: 09/04/24 04:55 Last Admin: 09/04/24 04:40 Dose: 50 ml Documented By: SUSY Dextrose (Dextrose 50%-Water Inj 50 Ml Syringe) 50 ml IV X1 ONE Stop: 09/04/24 04:56 Last Admin: 09/04/24 04:42 Dose: 50 ml Documented By: SUSY Dextrose (Dextrose 50%-Water Inj 50 Ml Syringe) 50 ml IV X1 ONE Stop: 09/04/24 05:02 Last Admin: 09/04/24 05:00 Dose: 50 ml Documented By: SUSY see above Consultations Consultation(s) initiated? (list below): No Diagnosis Differential diagnosis altered mental status: hypoglycemia, sepsis and other (acute on chronic renal failure, hyperkalemia, dehydration, metabolic encephalopathy, COPD exacerbation, severe sepsis, septic shock, pneumonia) Most likely diagnosis given after review of the tests above:: see below Admission Indicated Admission indicated?: not indicated Admission Request Was there a request for admission?: No Disposition Plan Disposition Plan: other (specify) (Signed out to Dr. Baez at 0600 pending labs and final disposition.) Discharge Plan Problem List Clinical Impression: Osteomyelitis, Hypoglycemia Patient/Caregiver Discharge Instructions Print Language: American
--- NOTE | 2024-09-04 05:48 | PC.NURSE ---
PT NOW ALERT TO A/OX3, GCS 15, PT ASKED CODE STATUS BY MD FORBES WHO IS AT BEDSIDE, PT STATES SHE IS A DNR/DNI, AND WITNESS BY TWO RNS EVGENY, AND PEACE WHO ARE ALSO AT BEDSIDE.
--- NOTE | 2024-09-04 05:49 | XR_ITS ---
Examination: AP chest single view Technique one AP portable semiupright chest single view INDICATIONS: Sepsis protocol FINDINGS: Early pneumonia left base Normal heart size Prominent osteopenia IMPRESSION: Early pneumonia left base
[2024-09-04 05:52] LABS: Basophils % (Auto) 0 % (0-2.5); Eosinophils # (Auto) 0.1 Thou/mm3 (0.0-0.5); Eosinophils % (Auto) 0 % (0-10); Immature Granulocytes % (Auto) 3 % (0-0); Immature Granulocytes Auto 1.39 Thou/mm3 (0.00-0.00); Lymphocytes # (Auto) 0.3 Thou/mm3 (1.0-4.8); Lymphocytes % (Auto) 1 % (10-50); Mean Corpuscular Hemoglobin 23.4 pg (25.0-35.0); Mean Corpuscular Volume 78 fL (80-100); Monocytes # (Auto) 1.4 Thou/mm3 (0.0-0.8); Monocytes % (Auto) 3 % (0-12); Neutrophils # (Auto) 50.6 Thou/mm3 (1.8-7.7); Neutrophils % (Auto) 94 % (37-80); Nucleated Red Blood Cell # 0.31 Thou/mm3 (0.00-0.00); Nucleated Red Blood Cell % 1 /100 WBC (0); Platelet Count 380 Thou/mm3 (140-440); RDW Standard Deviation 73.7 fL (36.4-46.3); Red Blood Count 3.33 Miln/mm3 (4.00-5.20)
[2024-09-04 06:00] LABS: INR 1.8 (0.9-1.3); Partial Thromboplastin Time 41.8 Seconds (22.0-36.0); Prothrombin Time 18.8 Seconds (9.0-12.2)
[2024-09-04 06:13] LABS: Hemoglobin 7.8 g/dL (12.0-16.0); White Blood Count 53.8 Thou/mm3 (3.6-11.0)
[2024-09-04 06:22] LABS: Alanine Aminotransferase 145 U/L (10-49); Albumin, Serum 3.8 gm/dL (3.4-4.8); Albumin/Globulin Ratio 1.3 (1.2-2.2); Alcohol, Blood Medical < 3.0 mg/dL (0-10.0); Alkaline Phosphatase 290 U/L (46-116); Anion Gap 19 (7-16); Aspartate Amino Transferase 316 U/L (0-34); BUN/Creatinine Ratio 21 Ratio (12-20); Bilirubin,Total 0.7 mg/dL (0.3-1.2); Calcium (Corrected) 10.2 mg/dL (8.5-10.1); Chloride 105 mMol/L (98-107); Estimated Creatinine Clearance 8.6 mL/min (>60); Osmolality,Calculated 303 (275-295); Sodium 138 mMol/L (136-145); Total Protein 6.8 gm/dL (5.7-8.2); Troponin I 0.022 ng/mL (0.0-0.045); eGFR 9 See Note
[2024-09-04 06:23] LABS: Ammonia 111 uMol/L (11-32)
[2024-09-04 06:25] LABS: Carbon Dioxide 14.3 mMol/L (20.0-31.0)
[2024-09-04 06:26] LABS: Blood Urea Nitrogen 104 mg/dL (9-23); Glucose 16 mg/dL (74-106); Potassium 8.4 mMol/L (3.4-5.1)
--- NOTE | 2024-09-04 06:28 | EDNOTE_ITS ---
Altered Mental Status RME/HPI General Chief Complaint: Altered Mental Status Stated Complaint: AMS Time Seen by Provider: 09/04/24 05:49 Arrival date/time: 09/04/24 04:39 RME / HPI RME / HPI narrative: Dr. Sawant's Main ED Evaluation: 73yo female BRINA from home presents to the ED for a chief complaint of AMS. Patient was seen by me immediately upon arrival at 0436. Per EMS, patient's friend called 911 due to the patient being altered. En route, EMS noted a blood pressure of 140/80, heart rate in the 60s, and a blood sugar that was low (less than 25), so they administered D10 via an EJ they placed. Here in the ED, patient's blood sugar reads low . Patient is awake, but is unable to provide any history. Full ROS is unobtainable due to the patient's AMS. 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 Baez: Patient was signed out to me pending remainder of work-up. Please refer to her HPI above and previous note from initial evaluation this morning. Related Data Allergies Allergy/AdvReac Type Severity Reaction Status Date / Time ciprofloxacin [From Cipro] Allergy Severe Rash Verified 09/04/24 04:48 Review of Systems Review of Systems ROS Unobtainable: unobtainable due to mental status Past Medical History Past Medical History NEUROLOGIC: Positive Neurological Disorders and Spina Bifida CARDIAC: Positive Cardiac Disorders and Hypertension RESPIRATORY: Positive Wheezing, Smoking and Tobacco Use GASTROINTESTINAL: Positive Gastrointestinal Disorders GENITOURINARY: Positive Genitourinary Disorders and Neurogenic Bladder MUSCULOSKELETAL: Positive Musculoskeletal Disorders, Arthritis, Osteoporosis and Osteomyelitis HEMATOLOGIC: Positive Anemia OTHER HISTORY: Positive Hospitalization Social History SMOKING STATUS: Unknown if ever smoked SUBSTANCE USE: does not use ED Exam Narrative Physical exam: Physical Exam: General: The vital signs were reviewed. Patient is tachycardic as gurgling of upper airway respiratory noises but is breathing rapid slightly tachycardic blood pressure 101 systolic O2 sats are in the low 90s. Patient appears ill somewhat of a blank stare but does respond to questions will squeeze hand with 1 or 2 to answer yes or no. She we know this patient was signed out is a DNR/DNI but when I go in the room inform her that her potassium is quite high and that she is critically ill she does state confirms that she does want to be intubated and does want us to treat her. See MDM for further disc Head & Scalp: Normocephalic, atraumatic. Face: Appears normal and is without lesions, deformity. Ears: Left external pinna appears normal. Right external pinna appears normal. Eyes: The sclera is anicteric. No obvious photophobia. The Left and Right Orbit/Lid/Conjunctiva appears normal without swelling, discoloration or injection. Nose: The nose is without deformity, discharge or tenderness; Throat: Mouth breathing dry appears normal. The mucous membranes are pink and moist without exudates, redness or mass seen. The tongue appears normal. Neck: The neck is supple and no apparent mass or adenopathy. Chest: The chest wall is normal in size and symmetry and has no chest wall tenderness or crepitus. The patient displays normal ventilator effort without retractions, accessory muscle use and has adequate air movement bilaterally with no wheezes and no rales. Cardiovascular: Regular rate and rhythm; No murmurs, rubs, or gallops; Gastrointestinal: The abdomen appears normal. No obvious hernias or mass. The abdomen is soft and benign, non-distended, with no pain, no guarding and no rebound tenderness. Bowel sounds are present and normal sounding. No CVA tenderness. Genitourinary: Back/Spine: Extremities/Musculoskeletal/lymphatic: The bilateral upper and lower extremities are warm. There is no evidence of arterial insufficiency. There is no evidence of venous insufficiency/edema. The patient spontaneously moves bilateral upper and lower extremities with no pain and no limitation of movement. There is no apparent, injury or trauma. Skin: The skin is warm, dry and intact. No rashes. No petechia. No purpura. No abnormal bruising. The color is appropriate with no cyanosis. Mental status/Psychiatric: Mental status is appropriate for age. The patient has no apparent delusions, visual hallucinations, no apparent audible hallucinations. The patient has no apparent suicidal thoughts/ideation and no apparent homicidal thoughts/ideation. Neurological: The patient is awake, alert, interactive, cordial, cooperative and is oriented to name and situation. The patient follows commands and answers historical question with no impairment. There is no visual disturbance apparent. The pupils are equal and reactive bilaterally with normal eye movements and no diplopia The bilateral upper and lower extremities have normal strength, normal range of motion and normal functioning. The gait, station and balance appear to be baseline with no acute change General General appearance: Present lethargic (but awake, answers questions by shaking her head) and other Course Quality Measures Current suspected stage: septic shock (LA >4 and/or hypotension) IVF 30 ml/kg given for lactic acid >4 and/or hypotension: yes Sepsis reassessment completed at (date): 09/04/24 Sepsis reassessment completed at (time): 08:45 Possible source: pulmonary and bone/joint Blood cultures ordered: completed in ED Antibiotic ordered: Yes Pertinent labs: 09/04/24 09:03 Lactic Acid 10.7 H* mMol/L (0.4-2.0) sepsis Orders Category Date Time Status Bedside Blood Glucose NOW Care 09/04/24 05:05 Active Bedside Blood Glucose Q1HR Care 09/04/24 06:29 Completed Fleet Service Manager NOW Care 09/04/24 05:05 Active Continuous Pulse Oximetry NOW Care 09/04/24 05:05 Completed EKG (ED ONLY) *Do not use* NOW Care 09/04/24 04:55 Completed Initiate Warming Therapy NOW Care 09/04/24 05:47 Active Insert IV NOW Care 09/04/24 05:05 Active Intubation NOW Care 09/04/24 08:20 Completed Miscellaneous Nursing Order NOW Care 09/04/24 06:40 Active Urinary Catheter NOW Care 09/04/24 05:05 Active CXRP [XR chest 1V portable] Stat Exams 09/04/24 09:01 Completed EKG (ED Only) Stat Exams 09/04/24 04:55 Ordered XR chest 1V SEPSIS PROTOCOL Stat Exams 09/04/24 05:49 Completed ABG [Arterial Blood Gas] Stat Lab 09/04/24 08:00 Completed Alcohol, Blood Medical Stat Lab 09/04/24 05:00 Completed Ammonia Stat Lab 09/04/24 05:20 Completed Arterial Blood Gas Stat Lab 09/04/24 09:49 Completed BNP [B-Type Natriuretic Peptide] Stat Lab 09/04/24 09:03 Completed Blood Culture (Lab) Stat Lab 09/04/24 07:47 Received CBC Stat Lab 09/04/24 05:20 Completed Comprehensive Metabolic Panel Stat Lab 09/04/24 05:00 Completed Drug Screen,Urine Stat Lab 09/04/24 05:06 Ordered Lactate (Lactic Acid) Stat Lab 09/04/24 09:03 Completed Partial Thromboplastin Time Stat Lab 09/04/24 05:20 Completed Path Review Blood Smear Stat Lab 09/04/24 05:20 Completed Prothrombin Time with INR Stat Lab 09/04/24 05:20 Completed Sputum Culture and Gram Stain Stat Lab 09/04/24 09:49 Results Troponin I Stat Lab 09/04/24 05:00 Completed UA, C/S IF [Urinalysis, C/S if Indicated] Stat Lab 09/04/24 06:38 Ordered Urinalysis Stat Lab 09/04/24 05:45 Ordered Urine Culture Stat Lab 09/04/24 05:45 Ordered Venous Blood Gas Stat Lab 09/04/24 09:03 Completed ALBUTEROL RT 0.5ml [Proventil Rt 0.5ml] Med 09/04/24 06:29 Discontinued 5 mg INH X1 ONE Calcium Chloride 10% Abboject Med 09/04/24 08:32 Discontinued 10 ml IV X1 ONE Calcium Chloride 10% Abboject Med 09/04/24 08:35 Discontinued 10 ml IV X1 ONE Calcium Chloride 10% Inj 10 ml Med 09/04/24 08:32 Discontinued Sodium Chloride 0.9% [Ns] 100 ml IV X1 Calcium Gluconate 10% Inj Med 09/04/24 06:29 Discontinued 1 gm IV X1 ONE Dextrose 50% Syr [D50w Syringe Abboject] Med 09/04/24 04:54 Discontinued 50 ml IV X1 ONE Dextrose 50% Syr [D50w Syringe Abboject] Med 09/04/24 04:55 Discontinued 50 ml IV X1 ONE Dextrose 50% Syr [D50w Syringe Abboject] Med 09/04/24 05:01 Discontinued 50 ml IV X1 ONE Dextrose 50% Syr [D50w Syringe Abboject] Med 09/04/24 06:29 Discontinued 50 ml IV X1 ONE Etomidate Inj [Amidate Inj] Med 09/04/24 08:18 Discontinued 20 mg .ROUTE .STK-MED ONE Etomidate Inj [Amidate Inj] Med 09/04/24 08:26 Discontinued 20 mg IV X1 ONE Insulin Regular Med 09/04/24 06:29 Discontinued 10 unit IV X1 ONE Insulin Regular Med 09/04/24 08:38 Discontinued 10 unit IV X1 ONE Piper/Tazo 3.375 gm [Zosyn] Med 09/04/24 06:29 Discontinued 3.375 gm in 50 ml IV X1 Ringers Lactated 1000 ml [Lactated Ringers] 1,000 ml Med 09/04/24 08:26 Discontinued IV 999 mls/hr Ringers Lactated 1000 ml [Lactated Ringers] 1,000 ml Med 09/04/24 08:26 Discontinued IV 999 mls/hr Rocuronium Inj [Zemuron Inj] Med 09/04/24 08:18 Discontinued 100 mg .ROUTE .STK-MED ONE Rocuronium Inj [Zemuron Inj] Med 09/04/24 08:26 Discontinued 30 mg IVP X1 ONE Sodium Bicarb 8.4% 50ml Vial* Med 09/04/24 06:29 Discontinued 50 meq IV X1 ONE Sodium Chloride 0.9% 1000 ml [Ns] 1,000 ml Med 09/04/24 06:37 Discontinued IV 150 mls/hr Sodium Chloride 0.9% 500 ml [Ns] 500 ml Med 09/04/24 06:37 Discontinued IV 999 mls/hr Sodium Chloride Rt Lydia 0.9% [NS Rt Lydia 0.9%] Med 09/04/24 06:29 Discontinued 3 ml INH NOW ONE Sodium Chloride Rt Lydia 10% [NS Rt Lydia 10%] Med 09/04/24 08:44 Discontinued 5 ml INH X1 ONE Vancomycin Inj 1,000 mg Med 09/04/24 06:31 Discontinued Sodium Chloride 0.9% 250 ml [Ns] 250 ml IV X1 Mechanical [Volume Ventilator] Stat RT 09/04/24 Active Oxygen Delivery NOW RT 09/04/24 05:05 Active Sputum Induction PRN RT 09/04/24 08:45 Ordered Vital Signs Vital signs: Vital Signs Temperature 91.2 F L 09/04/24 04:40 Pulse Rate 71 09/04/24 04:40 Respiratory Rate 22 H 09/04/24 04:40 Blood Pressure 117/46 L 09/04/24 04:40 Pulse Oximetry (%) 100 09/04/24 04:40 Oxygen Delivery Method Room Air 09/04/24 04:40 Oxygen Flow Rate 2 09/04/24 04:40 Procedures -ED Central Line Placement Right Femoral: Time Out Performed: Yes Patient Placed on Monitor/Pulse Ox: Yes Hand Hygiene: soap & water Max Sterile Barrier Techniques used: cap, mask, sterile gown, sterile gloves and sterile full body drape Central Line Prep: Povidone-Iodine 1%, Chlorhexidine scrub and sterile drapes applied Local Anesthetic: lidocaine 1% Ultrasound Used for Placement: Yes Sterile Technique if Ultrasound used, including sterile gel: yes Central Line Lumen Inserted: triple Post Procedure: sutured in place, good blood return, all ports aspirated, flushed, capped and sterile dressing applied Patient Tolerated Procedure: well and no complications Complications: none Additional Comments: The resident Dr. Mart performed the central line with me, see her notes for details. Altered Mental Status MDM Narrative MDM Narrative:: Michelle Galvan am scribing for and in the presence of Dr. Baez. This patient was signed out 0600 hrs. and soon after starting my shift at 0600 hrs. and I was informed that the patient's potassium came back at 8.6. [facility] went and saw the patient was alert breathing fast with a soft voice who evidently is DNR/DNI. Hyperkalemia treatment medicines were ordered and discussed with the patient CODE STATUS and patient clearly stated she wanted to be treated and wanted to be intubated. As we were preparing to intubate the patient RT was called down stat but her IV access was quite poor so we consented verbally for a central line and since she was breathing kind of fast and the head was moving a little bit we decided to go on the right femoral vein. See the procedure note as Dr. Santana and the resident assisted me with this procedure. The central line was placed. Patient was actually very calm during the procedure with some uncertainty whether the treatment for hyperkalemia medications went into the vein or not but there was no puffiness at the previous small IV site and a follow-up potassium was improved. She be noted this morning the patient had some mild transaminase elevations ammonia was elevated troponin was negative initial chest x-ray revealed some questionable left lower lobe infiltrates. She would note this patient has extensive osteomyelitis was treated as an outpatient and actually was in the hospital and left AMA and was on hospice but evidently patient did not want that when I discussed this whether she wanted us to treat her. Option of the patient's medical condition is quite complex with multiple facets and ill enough to be in the ICU intubated when she left the department with Dr. Fleming's care Critical care note was placed as this consumed at least 60 minutes of my time. See critical care note. Soon after that Dr. Fleming came down to the department our ICU And we discussed the case at great length and she decided to take over the care and soon after that intubated the patient and the patient was taken to the ICU. Patient data External records reviewed:: [facility] previous records (I reviewed admission from 08/28/2024 through 08/30/2024) and EMS form Clinical information provided by:: other (specify) (RN) Social determinants that could affect healthcare access:: none Patient has the following chronic illnesses:: Spina bifida s/p surgery, neurogenic bladder, recurrent UTI, chronic osteomyelitis of right and left lower extremities, hypertension, chronic gluteal ulcer with multiple debridements per chart review How is presenting disease/condition affected by chronic disease/condition?: exacerbated by Evaluation data The following diagnostics were reviewed and interpreted by me:: lab results and radiology exam(s) Lab and/or radiology exams considered but not ordered:: None Interpretation Summary: Ordering Physician: Suha Sawant MD Date of Service: 09/04/24 Procedure(s): XR chest 1V SEPSIS PROTOCOL Accession Number(s): [id number] cc: Evangelista Young MD; NO PRIMARY/FAMILY,PHYSICIAN; Suha Sawant MD~ Examination: AP chest single view Technique one AP portable semiupright chest single view INDICATIONS: Sepsis protocol FINDINGS: Early pneumonia left base Normal heart size Prominent osteopenia IMPRESSION: Early pneumonia left base Dictated By: Evangelista Young MD Signed By: <Electronically signed by Evangelista Young MD in OV> 09/04/24 1039 Ordering Physician: Jonna Fleming MD Date of Service: 09/04/24 Procedure(s): XR chest 1V portable Accession Number(s): [id number] cc: Evangelista Young MD; Jonna Fleming MD; NO PRIMARY/FAMILY,PHYSICIAN~ Examination: AP chest single view TECHNIQUE: AP portable semiupright chest single view Exam date and time: September 04, 2024 0910 hours Comparison August 29, 2024 INDICATIONS: Hypoxic respiratory failure postintubation FINDINGS: Prominent opacity left base retrocardiac, consider aspiration pneumonia Tracheal tube tip 3.9 cm above jess Moderate vascular congestion Advance the orogastric tube 10 cm IMPRESSION: Left base pneumonia, consider aspiration pneumonia Advance the orogastric tube 10 cm Dictated By: Evangelista Young MD Signed By: <Electronically signed by Evangelista Young MD in OV> 09/04/24 1044 Medications / Prescriptions Medications or Prescriptions considered but not ordered:: None Medication administrations:: Medication Administration History Acetaminophen (Acetaminophen 325 Mg Tablet) 650 mg PO Q4HR PRN PRN Reason: PAIN SCALE 1-3 (mild Stop: 10/04/24 09:20 Acetaminophen (Acetaminophen Supp 650 Mg Supp) 650 mg HI Q4HR PRN PRN Reason: PAIN SCALE 1-3 (mild Stop: 10/04/24 09:20 Al Hydrox/Mg Hydrox/Simethicone (Mg Hyd/Al Hyd/Sourav (Maalox Reg) Susp 30 Ml Udc) 30 ml PO Q4HR PRN PRN Reason: Heartburn or Upset Stomach Stop: 10/04/24 09:20 Famotidine (Famotidine Inj 10 Mg/Ml Vial 2 Ml) 20 mg IVP QDAY PORSCHE Stop: 10/04/24 09:20 Last Admin: 09/04/24 11:39 Dose: Not Given Documented By: BRET Non-Admin Reason: Past due from ED. Heparin Sodium (Porcine) (Heparin Sod Inj 5000 Unit/Ml Vial) 5,000 unit SC Q8HR PORSCHE Stop: 09/18/24 13:59 Last Admin: 09/04/24 14:41 Dose: 5,000 unit Documented By: BRET Co-signed By: AG Hydrocortisone Sodium Succinate (Hydrocortisone Sod Succ Inj 100 Mg Vial) 50 mg IV Q6HR PORSCHE Stop: 10/04/24 11:59 Last Admin: 09/04/24 17:27 Dose: 50 mg Documented By: Admin: 09/04/24 11:40 Dose: 50 mg Documented By: ZP Norepinephrine/Dextrose (Levophed In D5w 8mg/250ml) 8 mg in 250 mls @ 6.166 mls/hr IV .Q24H PRN; Protocol PRN Reason: PER PROTOCOL Stop: 10/04/24 10:12 Last Titration: 09/04/24 17:00 Dose: 0.3 mcg/kg/min, 36.996 mls/hr Documented By: Admin: 09/04/24 16:29 Dose: 0.3 mcg/kg/min, 36.996 mls/hr Documented By: Titration: 09/04/24 16:29 Dose: Infused Documented By: Titration: 09/04/24 12:45 Dose: 0.3 mcg/kg/min, 36.996 mls/hr Documented By: Titration: 09/04/24 12:30 Dose: 0.28 mcg/kg/min, 34.53 mls/hr Documented By: Titration: 09/04/24 12:00 Dose: 0.26 mcg/kg/min, 32.063 mls/hr Documented By: Titration: 09/04/24 11:45 Dose: 0.26 mcg/kg/min, 32.063 mls/hr Documented By: Titration: 09/04/24 11:30 Dose: 0.28 mcg/kg/min, 34.53 mls/hr Documented By: Titration: 09/04/24 10:25 Dose: 0.3 mcg/kg/min, 36.996 mls/hr Documented By: Admin: 09/04/24 10:16 Dose: 0.05 mcg/kg/min, 6.166 mls/hr Documented By: FC Dexmedetomidine/Sodium Chloride (Precedex Ivpb) 200 mcg in 50 mls @ 3.289 mls/hr IV .[id number] PRN; Protocol PRN Reason: Per PROTOCOL Stop: 10/04/24 11:05 Last Titration: 09/04/24 17:46 Dose: 1 mcg/kg/hr, 16.443 mls/hr Documented By: Admin: 09/04/24 17:03 Dose: 0.8 mcg/kg/hr, 13.154 mls/hr Documented By: ZP Co-signed By: AG Titration: 09/04/24 17:03 Dose: Infused Documented By: ZP Co-signed By: AG Titration: 09/04/24 17:00 Dose: 0.8 mcg/kg/hr, 13.154 mls/hr Documented By: Titration: 09/04/24 16:00 Dose: 0.8 mcg/kg/hr, 13.154 mls/hr Documented By: Titration: 09/04/24 15:00 Dose: 0.8 mcg/kg/hr, 13.154 mls/hr Documented By: Titration: 09/04/24 14:00 Dose: 0.8 mcg/kg/hr, 13.154 mls/hr Documented By: Admin: 09/04/24 13:40 Dose: 0.8 mcg/kg/hr, 13.154 mls/hr Documented By: ZP Co-signed By: AG Titration: 09/04/24 13:40 Dose: Infused Documented By: ZP Co-signed By: AG Titration: 09/04/24 13:00 Dose: 0.8 mcg/kg/hr, 13.154 mls/hr Documented By: Titration: 09/04/24 12:40 Dose: 0.8 mcg/kg/hr, 13.154 mls/hr Documented By: Titration: 09/04/24 12:10 Dose: 0.6 mcg/kg/hr, 9.866 mls/hr Documented By: Titration: 09/04/24 12:00 Dose: 0.4 mcg/kg/hr, 6.577 mls/hr Documented By: Titration: 09/04/24 11:40 Dose: 0.4 mcg/kg/hr, 6.577 mls/hr Documented By: Admin: 09/04/24 11:10 Dose: 0.2 mcg/kg/hr, 3.289 mls/hr Documented By: ZP Co-signed By: KF Fentanyl Citrate (Sublimaze Inj 2,500 Mcg/250 Ml Bag) 2,500 mcg in 250 mls @ 2.5 mls/hr IV .Q24H PRN; Protocol PRN Reason: PER PROTOCOL Stop: 09/09/24 11:54 Last Titration: 09/04/24 17:00 Dose: 300 mcg/hr, 30 mls/hr Documented By: Titration: 09/04/24 16:00 Dose: 300 mcg/hr, 30 mls/hr Documented By: Titration: 09/04/24 15:00 Dose: 300 mcg/hr, 30 mls/hr Documented By: Titration: 09/04/24 14:00 Dose: 300 mcg/hr, 30 mls/hr Documented By: Titration: 09/04/24 13:14 Dose: 300 mcg/hr, 30 mls/hr Documented By: Titration: 09/04/24 13:00 Dose: 150 mcg/hr, 15 mls/hr Documented By: Titration: 09/04/24 12:14 Dose: 150 mcg/hr, 15 mls/hr Documented By: Admin: 09/04/24 12:10 Dose: 25 mcg/hr, 2.5 mls/hr Documented By: BRET Co-signed By: OG Vasopressin/Sodium Chloride (Vasostrict/Ns Ivpb) 20 unit in 100 mls @ 9 mls/hr IV .Q11H7M PRN; Protocol PRN Reason: PER PROTOCOL Stop: 10/04/24 12:02 Piperacillin/Tazobactam/Dextrose (Zosyn) 2.25 gm in 50 mls @ 100 mls/hr IV Q8HR [facility] Stop: 09/11/24 12:14 Last Admin: 09/04/24 14:41 Dose: 100 mls/hr Documented By: ZLorraine Comments: Given late 2/T procedure. Lactulose (Lactulose Syrup 20 Gm/30 Ml Udc) 20 gm PO TID PORSCHE; Protocol Stop: 10/04/24 13:59 Last Admin: 09/04/24 15:47 Dose: 20 gm Documented By: BRET Comments: Given late 2/T waiting for OGT placement. Magnesium Hydroxide (Milk Of Magnesia Susp 30 Ml Udc) 30 ml PO QDAY PRN PRN Reason: CONSTIPATION Stop: 10/04/24 09:20 Nitroglycerin (Nitroglycerin 0.4 Mg Subl Btl #25) 0.4 mg SL Q5MIN PRN PRN Reason: CHEST PAIN Pharmacy Consult (Vancomycin Pharmacy To Dose 1 Each Each) 1 each IV QDAY PRN PRN Reason: CONSULT Stop: 10/04/24 12:14 Rifaximin (Rifaximin 550 Mg Tablet) 550 mg PO BID PORSCHE Stop: 09/11/24 11:59 Last Admin: 09/04/24 15:47 Dose: 550 mg Documented By: BRET Comments: Given late 2/T waiting for OGT placement. Discontinued Medications Albuterol (Albuterol Rt 2.5 Mg/0.5 Ml Nebu) 5 mg INH X1 ONE Stop: 09/04/24 06:30 Last Admin: 09/04/24 06:52 Dose: 5 mg Documented By: LIBBY Albuterol (Albuterol Rt 2.5 Mg/0.5 Ml Nebu) 10 mg INH X1 ONE Stop: 09/04/24 14:16 Last Admin: 09/04/24 14:38 Dose: 10 mg Documented By: FAROOQ Calcium Chloride (Calcium Chloride 10% Inj 10 Ml Syrg) 10 ml IV X1 ONE Stop: 09/04/24 08:36 Last Admin: 09/04/24 08:49 Dose: 10 ml Documented By: BROOKLYN Calcium Chloride (Calcium Chloride 10% Inj 10 Ml Syrg) 10 ml IV X1 ONE Stop: 09/04/24 08:33 Last Admin: 09/04/24 08:32 Dose: 10 ml Documented By: BROOKLYN Calcium Chloride (Calcium Chloride 10% Inj 10 Ml Syrg) 20 ml IV X1 ONE Stop: 09/04/24 14:04 Last Admin: 09/04/24 14:30 Dose: 20 ml Documented By: BRET Calcium Gluconate (Calcium Gluconate 10% Inj 1 Gm/10 Ml Vial) 1 gm IV X1 ONE Stop: 09/04/24 06:30 Last Admin: 09/04/24 08:57 Dose: Not Given Documented By: BROOKLYN Non-Admin Reason: Cancelled by Provider Dextrose (Dextrose 50%-Water Inj 50 Ml Syringe) 50 ml IV X1 ONE Stop: 09/04/24 04:55 Last Admin: 09/04/24 04:40 Dose: 50 ml Documented By: SUSY Dextrose (Dextrose 50%-Water Inj 50 Ml Syringe) 50 ml IV X1 ONE Stop: 09/04/24 04:56 Last Admin: 09/04/24 04:42 Dose: 50 ml Documented By: SUSY Dextrose (Dextrose 50%-Water Inj 50 Ml Syringe) 50 ml IV X1 ONE Stop: 09/04/24 05:02 Last Admin: 09/04/24 05:00 Dose: 50 ml Documented By: SUSY Dextrose (Dextrose 50%-Water Inj 50 Ml Syringe) 50 ml IV X1 ONE Stop: 09/04/24 06:30 Last Admin: 09/04/24 06:45 Dose: 50 ml Documented By: VERNA Dextrose (Dextrose 50%-Water Inj 50 Ml Syringe) 50 ml IV X1 ONE Stop: 09/04/24 14:16 Last Admin: 09/04/24 14:30 Dose: 50 ml Documented By: BRET Epinephrine HCl (Epinephrine Inj 0.1 Mg/Ml Syringe 10ml) 1 mg IV X1 ONE Stop: 09/04/24 08:31 Last Admin: 09/04/24 08:30 Dose: 1 mg Documented By: BROOKLYN Etomidate (Etomidate Inj 2 Mg/Ml Vial 10 Ml) Confirm Administered Dose 20 mg .ROUTE .STK-MED ONE Stop: 09/04/24 08:19 Last Admin: 09/04/24 08:29 Dose: Not Given Documented By: BROOKLYN Non-Admin Reason: Duplicate Medication on eMAR Etomidate (Etomidate Inj 2 Mg/Ml Vial 10 Ml) 20 mg 0.3 mg/kg (20 mg) IV X1 ONE Stop: 09/04/24 08:27 Last Admin: 09/04/24 08:27 Dose: 20 mg Documented By: BROOKLYN Piperacillin/Tazobactam/Dextrose (Zosyn) 3.375 gm in 50 mls @ 100 mls/hr IV X1 ONE Stop: 09/04/24 06:58 Last Infusion: 09/04/24 09:40 Dose: Infused Documented By: Admin: 09/04/24 09:12 Dose: 100 mls/hr Documented By: BROOKLYN Vancomycin HCl 1,000 mg/ (Sodium Chloride) 250 mls @ 150 mls/hr IV X1 ONE Stop: 09/04/24 08:10 Last Admin: 09/04/24 09:58 Dose: 150 mls/hr Documented By: BROOKLYN Sodium Chloride (Ns) 500 mls @ 999 mls/hr IV .Q31M ONE Stop: 09/04/24 07:07 Last Admin: 09/04/24 08:27 Dose: Not Given Documented By: BROOKLYN Non-Admin Reason: Cancelled by Provider Sodium Chloride (Ns) 1,000 mls @ 150 mls/hr IV .Q6H40M ONE Stop: 09/04/24 13:16 Last Admin: 09/04/24 11:38 Dose: Not Given Documented By: BRET Non-Admin Reason: Don't give per MD. Lactated Ringer's (Lactated Ringers) 1,000 mls @ 999 mls/hr IV .Q1H1M ONE Stop: 09/04/24 09:26 Last Infusion: 09/04/24 08:45 Dose: Infused Documented By: Admin: 09/04/24 08:00 Dose: 999 mls/hr Documented By: BROOKLYN Lactated Ringer's (Lactated Ringers) 1,000 mls @ 999 mls/hr IV .Q1H1M ONE Stop: 09/04/24 09:26 Last Infusion: 09/04/24 09:09 Dose: Infused Documented By: Admin: 09/04/24 08:10 Dose: 999 mls/hr Documented By: BROOKLYN Calcium Chloride 10 ml/ Sodium (Chloride) 110 mls @ 110 mls/hr IV X1 ONE Stop: 09/04/24 08:33 Last Admin: 09/04/24 09:06 Dose: Not Given Documented By: BROOKLYN Non-Admin Reason: Discontinued Lactated Ringer's (Lactated Ringers) 1,000 mls @ 999 mls/hr IV .Q1H1M ONE Stop: 09/04/24 11:14 Last Admin: 09/04/24 10:15 Dose: 999 mls/hr Documented By: BRET Comments: Bag started by ED RN. Bag running upon admission to ICU. Dexmedetomidine/Sodium Chloride (Precedex Ivpb) Confirm Administered Dose 200 mcg in 50 mls @ ud IV .STK-MED ONE Stop: 09/04/24 10:58 Last Admin: 09/04/24 11:14 Dose: Not Given Documented By: BRET Non-Admin Reason: STOCK MED. Insulin Human Regular (Insulin Hum Regular 1 Unit/0.01 Ml (Per Unit)) 10 unit IV X1 ONE Stop: 09/04/24 06:30 Last Admin: 09/04/24 06:49 Dose: 10 unit Documented By: VERNA Co-signed By: ANGELA Insulin Human Regular (Insulin Hum Regular 1 Unit/0.01 Ml (Per Unit)) 10 unit IV X1 ONE Stop: 09/04/24 08:39 Last Admin: 09/04/24 08:40 Dose: 10 unit Documented By: BROOKLYN Co-signed By: FREDO Insulin Human Regular (Insulin Hum Regular 1 Unit/0.01 Ml (Per Unit)) 10 unit IV X1 ONE Stop: 09/04/24 14:03 Last Admin: 09/04/24 14:30 Dose: 10 unit Documented By: BRET Co-signed By: AMINTA Rocuronium Danube (Rocuronium Inj 10 Mg/Ml Vial 10 Ml) Confirm Administered Dose 100 mg .ROUTE .STK-MED ONE Stop: 09/04/24 08:19 Last Admin: 09/04/24 08:29 Dose: Not Given Documented By: BROOKLYN Non-Admin Reason: Duplicate Medication on eMAR Rocuronium Danube (Rocuronium Inj 10 Mg/Ml Vial 10 Ml) 30 mg IVP X1 ONE Stop: 09/04/24 08:27 Last Admin: 09/04/24 08:28 Dose: 30 mg Documented By: BROOKLYN Co-signed By: FREDO Sodium Bicarbonate (Sodium Bicarb Inj 8.4% 1 Meq/Ml Vial 50 Ml) 50 meq IV X1 ONE Stop: 09/04/24 06:30 Last Admin: 09/04/24 06:45 Dose: 50 meq Documented By: VERNA Sodium Bicarbonate (Sodium Bicarb Inj 8.4% Syr 50 Ml Syringe) 50 ml IV X1 ONE Stop: 09/04/24 08:34 Last Admin: 09/04/24 08:33 Dose: 50 ml Documented By: BROOKLYN Sodium Bicarbonate (Sodium Bicarb Inj 8.4% Syr 50 Ml Syringe) 50 ml IV X1 ONE Stop: 09/04/24 14:01 Last Admin: 09/04/24 14:30 Dose: 50 ml Documented By: BRET Sodium Chloride (Sodium Chloride Rt Lydia 0.9% 3 Ml Nebu) 3 ml INH NOW ONE Stop: 09/04/24 06:30 Last Admin: 09/04/24 06:53 Dose: 3 ml Documented By: LIBBY Sodium Chloride (Sodium Chloride Rt 10% 15 Ml Nebu) 5 ml INH X1 ONE Stop: 09/04/24 08:45 Last Admin: 09/04/24 09:17 Dose: Not Given Documented By: FC Non-Admin Reason: Discontinued See above Consultations Consultation(s) initiated? (list below): Yes Consultation #1 (Physician, Specialty, Details): I spoke with bottoming room supervisor Dr. Fleming. Discussed patients PMHx, HPI, ED course, exam findings, labs, and radiology results. Patient accepted for admission to the ICU. Diagnosis Most likely diagnosis given after review of the tests above:: Osteomyelitis Hypoglycemia Admission Indicated Admission indicated?: indicated Admission Request Was there a request for admission?: Yes Admission Attestation Admission request attestation: Discussed case with [] from Hospitalist service regarding admission. Discussed patients ED course, exam findings, labs, and radiology results. The Hospitalist [agrees,declines] to accept the patient for admission. Disposition Plan Disposition Plan: Admit Critical Care Time Critical Care Time Critical Care Time: Yes Total Critical Care Time (min.): 45 Attestation: The high probability of sudden, clinically significant deterioration in the patient's condition required the highest level of my preparedness to intervene urgently. The services I provided to this patient were to treat and/or prevent clinically significant deterioration. Services included the following: chart data review, reviewing nursing notes and/or old charts, documentation time, oracle identity management consultant collaboration regarding findings and treatment options, medication orders and management, direct patient care, vital sign assessments and ordering, interpreting and reviewing diagnostic studies and lab tests. Aggregate critical care time includes only time during which I was engaged in work directly related to the patient's care, as described above, whether at bedside or elsewhere in the Emergency Department. It did not include time spent performing other reported procedures or the services of residents, students, nurses or physician assistants. Discharge Plan Plan Patient Disposition: Admit Acute Care w/in Hospital Problem List Clinical Impression: Acute hyperkalemia, Osteomyelitis, Hypoglycemia, Leukocytosis, Metabolic acidosis, Acute renal failure
--- NOTE | 2024-09-04 06:40 | PD.EDAMS ---
Altered Mental Status RME/HPI General Chief Complaint: Altered Mental Status Stated Complaint: AMS Time Seen by Provider: 09/04/24 05:49 Arrival date/time: 09/04/24 04:39 RME / HPI RME / HPI narrative: Dr. Sawant's Main ED Evaluation: 73yo female BR[place] from home presents to the ED for a chief complaint of AMS. Patient was seen by me immediately upon arrival at 0436. Per EMS, patient's friend called 911 due to the patient being altered. En route, EMS noted a blood pressure of 140/80, heart rate in the 60s, and a blood sugar that was low (less than 25), so they administered D10 via an EJ they placed. Here in the ED, patient's blood sugar reads low . Patient is awake, but is unable to provide any history. Full ROS is unobtainable due to the patient's AMS. 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 When asked, she does not want to be intubated or resuscitated. CXR is ordered for determining the etiology of AMS. Orders Category Date Time Status Bedside Blood Glucose NOW Care 09/04/24 05:05 Active Bedside Blood Glucose Q1HR Care 09/04/24 06:29 Active Filling Winder NOW Care 09/04/24 05:05 Active Continuous Pulse Oximetry NOW Care 09/04/24 05:05 Completed EKG (ED ONLY) *Do not use* NOW Care 09/04/24 04:55 Completed Initiate Warming Therapy NOW Care 09/04/24 05:47 Active Insert IV NOW Care 09/04/24 05:05 Active Urinary Catheter NOW Care 09/04/24 05:05 Active EKG (ED Only) Stat Exams 09/04/24 04:55 Ordered XR chest 1V SEPSIS PROTOCOL Stat Exams 09/04/24 05:49 Taken Alcohol, Blood Medical Stat Lab 09/04/24 05:00 Completed Ammonia Stat Lab 09/04/24 05:20 Completed BNP [B-Type Natriuretic Peptide] Stat Lab 09/04/24 06:37 Ordered Blood Culture (Lab) Stat Lab 09/04/24 05:06 Ordered Blood Culture (Lab) Stat Lab 09/04/24 06:38 Ordered CBC Stat Lab 09/04/24 05:20 Results Comprehensive Metabolic Panel Stat Lab 09/04/24 05:00 Completed Drug Screen,Urine Stat Lab 09/04/24 05:06 Ordered Lactate (Lactic Acid) Stat Lab 09/04/24 06:38 Ordered Partial Thromboplastin Time Stat Lab 09/04/24 05:20 Completed Path Review Blood Smear Stat Lab 09/04/24 05:20 Results Prothrombin Time with INR Stat Lab 09/04/24 05:20 Completed Troponin I Stat Lab 09/04/24 05:00 Completed UA, C/S IF [Urinalysis, C/S if Indicated] Stat Lab 09/04/24 06:38 Ordered Urinalysis Stat Lab 09/04/24 05:45 Ordered Urine Culture Stat Lab 09/04/24 05:45 Ordered Venous Blood Gas Stat Lab 09/04/24 06:38 Ordered ALBUTEROL RT 0.5ml [Proventil Rt 0.5ml] Med 09/04/24 06:29 Discontinued 5 mg INH X1 ONE Calcium Gluconate 10% Inj Med 09/04/24 06:29 Discontinued 1 gm IV X1 ONE Dextrose 50% Syr [D50w Syringe Abboject] Med 09/04/24 04:54 Discontinued 50 ml IV X1 ONE Dextrose 50% Syr [D50w Syringe Abboject] Med 09/04/24 04:55 Discontinued 50 ml IV X1 ONE Dextrose 50% Syr [D50w Syringe Abboject] Med 09/04/24 05:01 Discontinued 50 ml IV X1 ONE Dextrose 50% Syr [D50w Syringe Abboject] Med 09/04/24 06:29 Discontinued 50 ml IV X1 ONE Insulin Regular Med 09/04/24 06:29 Discontinued 10 unit IV X1 ONE Piper/Tazo 3.375 gm [Zosyn] Med 09/04/24 06:29 Active 3.375 gm in 50 ml IV X1 Sodium Bicarb 8.4% 50ml Vial* Med 09/04/24 06:29 Discontinued 50 meq IV X1 ONE Sodium Chloride 0.9% 1000 ml [Ns] 1,000 ml Med 09/04/24 06:37 Active IV 150 mls/hr Sodium Chloride 0.9% 500 ml [Ns] 500 ml Med 09/04/24 06:37 Active IV 999 mls/hr Sodium Chloride Rt Lydia 0.9% [NS Rt Lydia 0.9%] Med 09/04/24 06:29 Discontinued 3 ml INH NOW ONE Vancomycin Inj 1,000 mg Med 09/04/24 06:31 Active Sodium Chloride 0.9% 250 ml [Ns] 250 ml IV X1 Oxygen Delivery NOW RT 09/04/24 05:05 Active Vital Signs Vital signs: Vital Signs Temperature 91.2 F L 09/04/24 04:40 Pulse Rate 71 09/04/24 04:40 Respiratory Rate 22 H 09/04/24 04:40 Blood Pressure 117/46 L 09/04/24 04:40 Pulse Oximetry (%) 100 09/04/24 04:40 Oxygen Delivery Method Room Air 09/04/24 04:40 Oxygen Flow Rate 2 09/04/24 04:40 Altered Mental Status Medications / Prescriptions Medication administrations:: Medication Administration History Piperacillin/Tazobactam/Dextrose (Zosyn) 3.375 gm in 50 mls @ 100 mls/hr IV X1 ONE Stop: 09/04/24 06:58 Vancomycin HCl 1,000 mg/ (Sodium Chloride) 250 mls @ 150 mls/hr IV X1 ONE Stop: 09/04/24 08:10 Sodium Chloride (Ns) 500 mls @ 999 mls/hr IV .Q31M ONE Stop: 09/04/24 07:07 Sodium Chloride (Ns) 1,000 mls @ 150 mls/hr IV .Q6H40M ONE Stop: 09/04/24 13:16 Discontinued Medications Albuterol (Albuterol Rt 2.5 Mg/0.5 Ml Nebu) 5 mg INH X1 ONE Stop: 09/04/24 06:30 Calcium Gluconate (Calcium Gluconate 10% Inj 1 Gm/10 Ml Vial) 1 gm IV X1 ONE Stop: 09/04/24 06:30 Dextrose (Dextrose 50%-Water Inj 50 Ml Syringe) 50 ml IV X1 ONE Stop: 09/04/24 04:55 Last Admin: 09/04/24 04:40 Dose: 50 ml Documented By: SUSY Dextrose (Dextrose 50%-Water Inj 50 Ml Syringe) 50 ml IV X1 ONE Stop: 09/04/24 04:56 Last Admin: 09/04/24 04:42 Dose: 50 ml Documented By: SUSY Dextrose (Dextrose 50%-Water Inj 50 Ml Syringe) 50 ml IV X1 ONE Stop: 09/04/24 05:02 Last Admin: 09/04/24 05:00 Dose: 50 ml Documented By: SUSY Dextrose (Dextrose 50%-Water Inj 50 Ml Syringe) 50 ml IV X1 ONE Stop: 09/04/24 06:30 Insulin Human Regular (Insulin Hum Regular 1 Unit/0.01 Ml (Per Unit)) 10 unit IV X1 ONE Stop: 09/04/24 06:30 Sodium Bicarbonate (Sodium Bicarb Inj 8.4% 1 Meq/Ml Vial 50 Ml) 50 meq IV X1 ONE Stop: 09/04/24 06:30 Sodium Chloride (Sodium Chloride Rt Lydia 0.9% 3 Ml Nebu) 3 ml INH NOW ONE Stop: 09/04/24 06:30 Discharge Plan Problem List Clinical Impression: Osteomyelitis, Hypoglycemia Patient/Caregiver Discharge Instructions Print Language: Latvian
[2024-09-04] MEDS: SODIUM BICARB INJ 8.4% 1 mEq/ML VIAL 50 ML 50 MEQ IV (06:45)
[2024-09-04] MEDS: INSULIN HUM REGULAR 1 UNIT/0.01 ML (PER UNIT) 10 UNIT IV ×3 (06:49→14:30)
[2024-09-04] MEDS: ALBUTEROL RT 2.5 MG/0.5 ML NEBU 5 MG INH (06:52)
[2024-09-04] MEDS: SODIUM CHLORIDE RT SOL 0.9% 3 ML NEBU INH (06:53)
--- NOTE | 2024-09-04 07:18 | PC.NURSE ---
Assumed care of Patient. Patient in room on [facility] connected to monitors. DR Baez and resident Dr Santana in room at this time preparing to to insert central line. Respiratory Therapist at bedside.
--- NOTE | 2024-09-04 07:56 | ESOP_ITS ---
Procedures Procedure Date / Time 09/04/24 0756 Procedure Narrative Procedure Narrative: Femoral Line Procedure Note INDICATION: Acute hyperkalemia, K = 8.4 PROCEDURE ADMINISTRATIVE PROGRAM SPECIALIST: Gume Santana MD ATTENDING PHYSICIAN: Donnie Baez MD CONSENT: During the informed consent discussion regarding the procedure, or treatment, I explained the following to the patient/designee: a. Nature of the procedure or treatment and who will perform the procedure or treatment. b. Necessity for procedure and the possible benefits. c. Risks and complications (most common and serious) PROCEDURE SUMMARY: The [facility] Central Line Insertion Practices form was completed by an independent observer. A time out was performed. My hands were washed immediately prior to the procedure. I wore a surgical cap, mask with protective eye wear, sterile gown and sterile gloves throughout the procedure. The LEFT/ RIGHT inguinal region was prepped using chlorhexidine scrub and draped in sterile fashion using a full drape and sterile probe cover and sterile gel employed. The femoral pulse was identified. Anesthesia was achieved using 1% lidocaine. Palpating the femoral pulse throughout the procedure, the introducer needle was inserted medial to the femoral artery, inferior to the inguinal crease and into the femoral vein. Venous blood was withdrawn. The syringe was removed and a guidewire was advanced into the introducer needle. A small incision was made at the skin surface with a scalpel and the introducer needle was exchanged for a dilator over the guidewire. After appropriate dilation was obtained, the dilator was exchanged over the wire for a central venous catheter. The wire was removed and the catheter was sutured in place. A sterile sorbaview shield was placed over the catheter at the insertion site. The patient tolerated the procedure without any hemodynamic compromise. At time of procedure completion, all ports aspirated and flushed properly. Estimated blood loss is 5mL. - Gume Santana MD, PGY2 MD Attestation MD Attestation I, Donnie Baez MD, have reviewed the history, exam, and assessment of the patient. I have evaluated the patient independently and agree with the plan of care documented by [Dr. Santana]. All diagnostic studies were reviewed and discussed. I confirm the diagnosis as documented by the Resident. I was present during the Medical Decision Making for this patient. The patient's plan of care was created between myself and the Resident and consistent with our discussion of the patient's case. I was present throughout the whole procedure where we did an ultrasound guided right femoral vein central line due to poor access and patient being critical care with hyperkalemia. See my other note for further details.
[2024-09-04] MEDS: RINGERS LACTATED 1000 ML 1,000 ML 999 ML IV ×3 (08:00→10:15)
[2024-09-04 08:05] LABS: Base Excess -19 (-3-3); HCO3 12 mEq/L (20-26); Inspired O2, VO2 Liters 15 L/min; O2 Saturation 86 % (91-98); PCO2 55 mmHg (32.0-48.0); PO2 76 mmHg (83-108)
[2024-09-04 08:11] LABS: Allen Test Performed/OK; Puncture Site Right Femoral; pH, Arterial 6.95 (7.35-7.45)
--- NOTE | 2024-09-04 08:23 | PC.NURSE ---
DR Fleming in room. Aware of ABG results. Plan to intubate.
[2024-09-04] MEDS: ETOMIDATE INJ 2 MG/ML VIAL 10 ML 20 MG IV (08:27)
[2024-09-04] MEDS: ROCURONIUM INJ 10 MG/ML VIAL 10 ML 30 MG IVP (08:28)
--- NOTE | 2024-09-04 08:29 | PC.NURSE ---
[address] Fleming
[2024-09-04] MEDS: EPINEPHrine INJ 0.1 MG/ML SYRINGE 10ML 1 MG IV (08:30)
[2024-09-04] MEDS: CALCIUM CHLORIDE 10% INJ 10 ML SYRG IV ×2 (08:32→08:49)
[2024-09-04] MEDS: Sodium Bicarb Inj 8.4% SYR 50 ML SYRINGE IV ×2 (08:33→14:30)
--- NOTE | 2024-09-04 09:01 | XR_ITS ---
Examination: AP chest single view TECHNIQUE: AP portable semiupright chest single view Exam date and time: September 04, 2024 0910 hours Comparison August 29, 2024 INDICATIONS: Hypoxic respiratory failure postintubation FINDINGS: Prominent opacity left base retrocardiac, consider aspiration pneumonia Tracheal tube tip 3.9 cm above jess Moderate vascular congestion Advance the orogastric tube 10 cm IMPRESSION: Left base pneumonia, consider aspiration pneumonia Advance the orogastric tube 10 cm
[2024-09-04 09:09] LABS: Base Excess, Venous -17 (-3-3); O2 Saturation, Venous 97 % (96-97); PCO2, Venous 37 mmHg (36-56); PO2, Venous 116 mmHg (15-58)
[2024-09-04] MEDS: PIPER/TAZO 3.375 GM 3.375 GM/50 ML BAG IV (09:12)
[2024-09-04 09:18] LABS: Lactate (Lactic Acid) 10.7 mMol/L (0.4-2.0)
[2024-09-04 09:28] LABS: B-Type Natriuretic Peptide 306 pg/mL (0-100)
--- NOTE | 2024-09-04 09:28 | PD.INTPROG ---
Documentation for date of: 09/04/24 Subjective Subjective Interval history: This is a 73yo F who was recently seen in the hospital on 08/30 when she left AMA. She has a new dx of a rectal mass and a bladder mass consistent with bladder cancer. She has hydronephrosis with RENAE with worsening markers. Apparently on her recent admission she stated quite clearly that she wanted to be DNR/DNI and that she did not want any assistance with hospice. Again she left AGAINST MEDICAL ADVICE and was staying at a friend's house. On the which was this past Monday she visited with urology. Per urology note they discussed her probable bladder cancer and the patient reiterated that she did not want any invasive or aggressive measures. On patient's arrival at 430 this morning after receiving D50 for her hypoglycemia there was a point where she had a GCS documented of 15. At that point in time it was discussed with the patient and her condition and she stated in front of the ER physician as well as bedside nurse that she wanted to be DNR DNI with no aggressive measures. Upon evaluation by the dayshift ER physician the patient was noted to have a blank stare however would squeeze hands. This was interpreted to be a request for full intervention. At that point in time the patient's CODE STATUS was changed to full. I personally examined the patient in room 3 in the ER and at that point in time I do not feel the patient was capable of making her own medical decisions. I examined the patient approximately 20-30 minutes after ER day shift. At that point she was encephalopathic with a blank stare and I would put her GCS at around 9 (M5, E4, V1). Pts labs were noted to be severely deranged with an ABG showing a mixed acidosis with respiratory and metabolic components at this time she was intubated. In the ER prior to intubation her SBP was in the 80s and 60s. She was given 3lts of IVF and SBP improved to 110s. Pt was intubated with etomidate 20 and yoni 30. Post intubation pts BP dropped and she received an amp of epi. She also developed a change in her rhythm to a wide complex tachycardia. Her K was noted to be 8.5 and she had not as of yet received tx for her K and therefore Ca and HCO3 were pushed. She was also given insulin 10 units IV. Her rhythm returned to baseline and her BP stabilized temporarily. Within 1hr her BP drifted back down and she was started on levophed. She arrived to the ICU intubated and on vasopressors. After pts arrival and chart review I did reach out to her contact as listed in the computer. She apparently has a son in [place] however there is no contact information for him and he is estranged. Pt had a friend whom she was living with for the last 6 weeks who she listed as next to contact. Patient's friend stated that the patient herself had just been evicted. Had no personal family mementos around in order to locate additional family members. She states that she does recall the patient stating that she wanted no aggressive interventions and no heroic measures. This appears to be consistent with what is documented regarding patient's wishes previously when she was awake alert and oriented. There for the patient's CODE STATUS will be switched back to DNR DNI with no escalation of care. Critical Care Note Critical care time (min.): 110 Exam Vital Signs Temp Pulse Resp BP Pulse Ox O2 Del Method O2 Flow Rate 91.4 F L 95 34 H 125/35 L 98 Mechanical Ventilation 15 09/04/24 07:24 09/04/24 09:00 09/04/24 09:00 09/04/24 09:00 09/04/24 08:46 09/04/24 09:00 09/04/24 07:24 FiO2 100 09/04/24 08:46 Narrative Exam Gen- ill appearing, respiratory distress, increased WOB HEENT- NC/AT, mucosa dry, edentulous, sclera anicteric, PERRL, ETT/OGT in place Chest- coarse breath sounds throughout, use of accessory muscles, HRRR, no murmur heard Abd- s/nt/bs, rectal abnormalities, R sided decub over ischium with tunneling and no active discharge at this time. Ext- edema pitting to level of the abdomen and UE, mottling from knee to toes b/l LE with delayed cap refill, no clubbing, hypoplasia of L hand Vent AC VC drips levo Physical Exam Completion Physical Exam Complete?: Yes Objective - Aviation Medicine Specialist Labs 09/04/24 05:20 09/04/24 05:00 Labs: Laboratory Results - last 24 hr 09/04/24 09/04/24 09/04/24 05:00 05:20 08:00 WBC 53.8 H* D RBC 3.33 L Hgb 7.8 L D Hct 26.0 L MCV 78 L MCH 23.4 L MCHC 30.0 L RDW Std Deviation 73.7 H Plt Count 380 D Neut % (Auto) 94 H Lymph % (Auto) 1 L [place] % (Auto) 3 Eos % (Auto) 0 Baso % (Auto) 0 Neut # (Auto) 50.6 H Lymph # (Auto) 0.3 L [place] # (Auto) 1.4 H Eos # (Auto) 0.1 Baso # (Auto) 0.0 Immature Gran # (Auto) 1.39 H Absolute Nucleated RBC 0.31 H Immature Gran % 3 H Nucleated RBC % 1 H PT 18.8 H INR 1.8 H APTT 41.8 H Puncture Site Right Femoral ABG pH 6.95 L* ABG pCO2 55 H ABG pO2 76 L ABG HCO3 12 L ABG O2 Saturation 86 L ABG Base Excess -19 L VBG pH VBG pCO2 VBG pO2 VBG O2 Sat (Cathy) VBG Base Excess Oxygen Liter Flow 15 Sodium 138 Potassium 8.4 H* Chloride 105 Carbon Dioxide 14.3 L* Anion Gap 19 H BUN 104 H* Creatinine 5.0 H* D Estim Creat Clear Calc 8.6 L eGFR 9 L* BUN/Creatinine Ratio 21 H Glucose 16 L* Calculated Osmolality 303 H Lactic Acid Calcium 10.0 Corrected Calcium 10.2 H Total Bilirubin 0.7 AST 316 H ALT 145 H Alkaline Phosphatase 290 H Ammonia 111 H* Troponin I 0.022 B-Natriuretic Peptide Total Protein 6.8 Albumin 3.8 Globulin 3.0 Albumin/Globulin Ratio 1.3 Ethyl Alcohol < 3.0 09/04/24 09:03 WBC RBC Hgb Hct MCV MCH MCHC RDW Std Deviation Plt Count Neut % (Auto) Lymph % (Auto) [place] % (Auto) Eos % (Auto) Baso % (Auto) Neut # (Auto) Lymph # (Auto) [place] # (Auto) Eos # (Auto) Baso # (Auto) Immature Gran # (Auto) Absolute Nucleated RBC Immature Gran % Nucleated RBC % PT INR APTT Puncture Site ABG pH ABG pCO2 ABG pO2 ABG HCO3 ABG O2 Saturation ABG Base Excess VBG pH 7.10 L VBG pCO2 37 VBG pO2 116 H VBG O2 Sat (Cathy) 97 VBG Base Excess -17 L Oxygen Liter Flow Sodium Potassium Chloride Carbon Dioxide Anion Gap BUN Creatinine Estim Creat Clear Calc eGFR BUN/Creatinine Ratio Glucose Calculated Osmolality Lactic Acid 10.7 H* Calcium Corrected Calcium Total Bilirubin AST ALT Alkaline Phosphatase Ammonia Troponin I B-Natriuretic Peptide 306 H Total Protein Albumin Globulin Albumin/Globulin Ratio Ethyl Alcohol Assessment & Plan Additional Assessment Additional Assessment: In summary this is a 73yo F admitted for sepsis and acute 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 Unable to visualize IVC well. At this point in time no obvious obstruction etiology, patient is receiving IV fluids for hypovolemia. Adequate rate and contractility with no suspicion for cardiac etiology at this point in time. Her shock is likely a mix of hypovolemia as well as distributive shock. She is currently on her third liter of IV fluids and has been started on Levophed. will start vaso once pt has reached 0.3mcg/kg/min as well as hydrocortisone. on vanc/zosyn Resp Acute Resp Failure- intubated in the ER and vent changes made, vent bundle, elevated PCO2 noted on fu ABG with an increase in Ve - fu CXR Pneumonia- stefano aspiration, pt also has a dense retrocardiac density, fu on sputum cx and on abx Renal Acidosis- mixed with AG and NonAG as well as a respiratory acidosis, pts metabolic acidosis is 2/2 LA Hyperkalemia- given Ca++, HCO3 as well as insulin , pt developed rhythm changes which resolved with K tx. would require dialysis if she were a candidate however she does not appear to be candidate at this point in time. Acute renal failure-patient appears to have had a normal renal function as of January 2024 however in July of this year there was a increase in her creatinine which has been getting progressively worse. Prior CT imaging studies did show hydronephrosis. stefano has acute on chronic dz and hydronephrosis is due to bladder mass. At this moment given her prior documented wishes will not offer HD Lactic acidosis- given IVF and fu LA GI Transaminitis-patient had normal LFTs on her prior discharge about a week ago. In the setting of her current hypotension this likely represents an ischemic insult. Patient's ammonia levels are elevated. Will require lactulose. Cirrhosis- as noted on prior CT, started on lactulose/rifaximin GI proph- started on pepcid IV Endo Hypoglycemia- given several amps of D50 Heme Leukocytosis- WBC# of 53.8, ? leukamoid reaction v severe sepsis Anemia-anticipate further drop after fluids. Currently with microcytic anemia. She was noted to have chronic anemia at baseline. 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 This appears to be again documented at 530 in this morning by the awake overnight counselor in the ER with witnesses when the patient had a documented GCS of 15 and consistent with all prior documentation in the computer system. Pt was not capable of making her own decisions when I saw her this morning. At this point in time I will revert to pts prior wishes which is DNR/DNI with no aggressive measures and no escalation of care. labs, imaging, records reviewed ~110 ccmin required for eval, exam, review, intervention, discussion and formulation of POC for this critically ill pt with shock and respiratory failure at high risk for further and ongoing decompensation Provider Notation Provider Notation: Although this document has been carefully reviewed, there may still be some phonetic and other typographical errors. These errors are purely grammatical due to imperfections in the software program and should not be construed in any way to compromise the substance of the patient's medical care during this visit. Thank you for the opportunity and privilege in assisting you with this patient's care and management.
--- NOTE | 2024-09-04 09:30 | PC.NURSE ---
informed Dr Fleming about Current BP. Telephone orders given.
[2024-09-04 09:31] LABS: Path Review Blood Smear Sent to Pathologist
--- NOTE | 2024-09-04 09:51 | XR_ITS ---
Examination: CT abdomen and pelvis without contrast. Coronal 3-D reconstructions. Sagittal 2-D reconstructions. Date and time of exam:September 04, 2024 1033 hours Comparison August 29, 2024 INDICATIONS: Diagnosis bladder cancer, recurrent urinary tract infections CTDI: vol (mGy): 15.2 DLP: (mGycm): 821 Technique: Axial images of the abdomen have been obtained, 3 mm slice thickness Intravenous contrast material has not been administered. Low dose protocols were performed. One or more of the following dose reduction techniques were used; automated exposure control, adjustment of the mA and/or KV according to patient size, use of iterative reconstruction technique. Findings: Pneumonia left base with small pleural effusions 5 mm soft pulmonary nodule right lower lobe Orogastric tube tip at the GE junction No focal liver lesion Spleen is not enlarged Renal arterial calcifications Bilateral moderate to advanced hydronephrosis with prominent renal cortical thinning and renal parenchymal scar formation Air distended right colon Multiple fluid distended small bowel loops Large amounts of stool in the rectum Urinary bladder is contracted around a Duncan catheter with large mass within or contiguous with the posterior margin of the bladder Free fluid in the abdomen Anasarca Soft tissue defect extending from the rectum to the skin surface, clinical correlation advised Air densities in the right buttock region axial image 199 IMPRESSION: Left base pneumonia Bilateral moderate to advanced hydronephrosis Small bowel obstruction pattern, consider Gastrografin small bowel series follow-up Urinary bladder contracted around a Duncan catheter with large mass within or contiguous with the posterior margin of the bladder, recommend cystoscopy follow-up Soft tissue presumably infectious defect extending from the rectum posteriorly to the skin surface Soft tissue infection with air densities in the right buttock region but no drainable abscess
--- NOTE | 2024-09-04 09:51 | PC.NURSE ---
report given to REJI OWENS
[2024-09-04 09:55] LABS: Base Excess -16 (-3-3); HCO3 13 mEq/L (20-26); Inspired Oxygen, FIO2 100 %; O2 Saturation 100 % (91-98); PCO2 50 mmHg (32.0-48.0); PO2 374 mmHg (83-108)
[2024-09-04] MEDS: Vancomycin Inj 1,000 MG in SODIUM CHLORIDE 0.9% 250 ML 250 ML 150 MG IV (09:58)
[2024-09-04 10:02] LABS: Allen Test Performed/OK; Puncture Site Right Femoral; pH, Arterial 7.03 (7.35-7.45)
[2024-09-04] MEDS: Norepinephrine/D5W 8mg/250ml 8 MG/250 ML BAG 6.166 MG IV (10:16)
--- NOTE | 2024-09-04 10:31 | PC.NURSE ---
Patient taken to CT with DETECTIVE CAPTAIN and ICU resident. Respiratory transported as well. Patient to ICU after CT scan.
[2024-09-04] MEDS: DEXMEDETOMIDINE 200 MCG IVPB 200 MCG/50 ML BOTTLE IV (11:10)
[2024-09-04] MEDS: HYDROCORTISONE SOD SUCC INJ 100 MG VIAL 50 MG IV ×2 (11:40→17:27)
[2024-09-04 12:06] LABS: Reflex Lactate? Y
[2024-09-04] MEDS: fentaNYL 2,500 MCG/250 ML BAG 2,500 MCG/250 ML BAG IV (12:10)
--- NOTE | 2024-09-04 12:16 | XR_ITS ---
Examination: Abdomen AP single view Technique: AP portable supine abdomen, single view Exam date and time: August 192024 1447 hours INDICATIONS: Status post reposition orogastric tube FINDINGS: Orogastric tube in the stomach satisfactory position Large amounts of stool in the right and transverse colon Air distended small bowel loops Right common femoral central line noted Left base pneumonia with air bronchograms IMPRESSION: Orogastric tube satisfactory position
[2024-09-04 12:17] LABS: Basophils % (Auto) 0 % (0-2.5); Eosinophils % (Auto) 0 % (0-10); Hematocrit 24.8 % (36.0-46.0); Immature Granulocytes % (Auto) 3 % (0-0); Lymphocytes # (Auto) 0.4 Thou/mm3 (1.0-4.8); Lymphocytes % (Auto) 1 % (10-50); Mean Corpuscular HGB Conc 29.8 g/dl (31.0-37.0); Mean Corpuscular Hemoglobin 23.8 pg (25.0-35.0); Mean Corpuscular Volume 80 fL (80-100); Monocytes % (Auto) 4 % (0-12); Neutrophils # (Auto) 45.5 Thou/mm3 (1.8-7.7); Neutrophils % (Auto) 92 % (37-80); Nucleated Red Blood Cell # 0.72 Thou/mm3 (0.00-0.00); Nucleated Red Blood Cell % 2 /100 WBC (0); Platelet Count 296 Thou/mm3 (140-440); RDW Standard Deviation 75.6 fL (36.4-46.3); Red Blood Count 3.11 Miln/mm3 (4.00-5.20)
[2024-09-04 12:22] LABS: Lactic Acid, 3 HR 9.3 mMol/L (0.4-2.0)
[2024-09-04 12:23] LABS: Hemoglobin 7.4 g/dL (12.0-16.0); White Blood Count 49.5 Thou/mm3 (3.6-11.0)
[2024-09-04 12:58] LABS: Alanine Aminotransferase 2380 U/L (10-49); Albumin, Serum 3.1 gm/dL (3.4-4.8); Albumin/Globulin Ratio 1.4 (1.2-2.2); Alkaline Phosphatase 359 U/L (46-116); Anion Gap 17 (7-16); Aspartate Amino Transferase > 6000 U/L (0-34); BUN/Creatinine Ratio 23 Ratio (12-20); Bilirubin,Total 0.6 mg/dL (0.3-1.2); Calcium 9.5 mg/dL (8.3-10.6); Calcium (Corrected) 10.2 mg/dL (8.5-10.1); Carbon Dioxide 15.2 mMol/L (20.0-31.0); Chloride 104 mMol/L (98-107); Creatinine (Component) 4.8 mg/dL (0.6-1.3); Globulin 2.2 gm/dL (2.3-3.5); Glucose 208 mg/dL (74-106); Osmolality,Calculated 312 (275-295); Sodium 136 mMol/L (136-145); Total Protein 5.3 gm/dL (5.7-8.2); eGFR 9 See Note
[2024-09-04 13:01] LABS: Potassium 7.5 mMol/L (3.4-5.1)
[2024-09-04 13:02] LABS: Blood Urea Nitrogen 109 mg/dL (9-23)
--- NOTE | 2024-09-04 13:05 | PC.NURSE ---
At time that Dr. Fleming made aware of Potassium 7.5, also aware glucose went from 16 to 208. aware and states yes she was given something for low glucose. No new orders received.
--- NOTE | 2024-09-04 13:30 | PC.SS ---
DAIRY CATTLE FARM WORKER conducted phone contact with patient's friend, Ria Grande to confirm if patient possessed family members. DAIRY CATTLE FARM WORKER informed by friend, Ria Grande; that patient might have a son in [facility] but unable to confirm. Patient's friend indicated that patient did not mention connection to any family members. Friend confirmed that patient had agreed to hospice services following hospital departure on 08-30-24, but declined hospice once staff conducted home visit. DAIRY CATTLE FARM WORKER informed friend of designation of next of kin. DAIRY CATTLE FARM WORKER inquired if friend will be visiting patient in ICU. Friend confirmed presence to ICU later this afternoon. DAIRY CATTLE FARM WORKER inquired if friend will be available to discuss with ICU continuous towel roller patient?s Code Status. Patient?s friend agreeable to discussing Code Status with continuous towel roller. DAIRY CATTLE FARM WORKER updated ICU medical team.
--- NOTE | 2024-09-04 13:39 | PC.NURSE ---
SPOKE TO TOY FROM [facility]PART[facility] TO CONFIRM PATIENTS NEXT OF KIN PER TOY THEY HAVE DAJA VILLAREAL LISTED NEXT OF KIN. THEY DO NOT HAVE ANY FILE OF A POLST FORM OR POA.
[2024-09-04] MEDS: DEXMEDETOMIDINE 200 MCG IVPB 200 MCG/50 ML BOTTLE 13.154 MCG IV ×2 (13:40→17:03)
[2024-09-04 14:18] LABS: Path Review Blood Smear Sent to Pathologist
[2024-09-04] MEDS: CALCIUM CHLORIDE 10% INJ 10 ML SYRG 20 ML IV (14:30)
--- NOTE | 2024-09-04 14:30 | PC.SS ---
BINGO WORKER conducted chart review to identify family member to patient. Unable to identify documented family member.
[2024-09-04] MEDS: ALBUTEROL RT 2.5 MG/0.5 ML NEBU 10 MG INH (14:38)
[2024-09-04] MEDS: PIPER/TAZO 2.25 GM 2.25 GM/50 ML BAG IV (14:41)
[2024-09-04] MEDS: HEPARIN SOD INJ 5000 UNIT/ML VIAL SC (14:41)
--- NOTE | 2024-09-04 14:50 | PC.SS ---
Addendum entered and electronically signed by YANG Michele 09/04/24 15:48: PICK PACK WORKER updated ICU charge nurse on APS response. Original Note: Addendum entered and electronically signed by YANG Michele 09/04/24 15:44: PICK PACK WORKER received return call from APS staff, Ayala Last; informing PICK PACK WORKER that APS not able to provide information pertaining to the patient due to confidentiality. Original Note: PICK PACK WORKER attempted phone contact with APS staff, Ayala Last ; to request assistance with locating next of kin. No response, PICK PACK WORKER left voicemail requesting return call.
--- NOTE | 2024-09-04 15:10 | ESHP_ITS ---
Documentation for date of: 09/04/24 HPI History of Present Illness Chief complaint: altered mental status History of present illness: Traci Armando is 73 yr female with PMH of spina bifida status post surgery, spinal cord tumor status post resection, neurogenic bladder with chronic in/out cath and recurrent UTIs, chronic osteomyelitis of the right and left lower extremities, chronic gluteal ulcer since 2019 status post multiple debridements, and rectal mass presented to ED today with AMS. Patient had recently left from [facility] on 08/30 with incomplete treatment of underlying OM infection. Per chart review, she had declined any invasive treatment in terms of her underlying cancer and refused hopsice care. Intial labs showed severe hypoglycemia BS 16 and ABGs reflecting a mixed repiratory/metabolic acidosis with pH of 6.9, pCO2 55, and bicarb 14. Patient was then intubated and upgraded to ICU. In ED, vitals reflected low MAP 40-50s with short term improvement after 3L bolus fluids. RR 30-35, tachycardia 120-130s, low temp 91.4. Labs showed leukocytosis 53.8, Hb 7.8, severe hyperkalemia 8.4, BUN 104, Cr 5.0, PT18.8, INR 1.8, PTT 41.8, AST 316, ALT 145, ALP 290, Lactate acide 10.7, hyperammonemia 111. UA showed hematuria and WBC 898, leukocyte Estrace positive, nitrates negative. Patient was started on calcium carbonate and received total of 20 units insulin while in the ED. Along with x4 and of D50, 10 mg albuterol. Tachycadia improved. MAP was not maintaining above 65 after fluids. Started on levophed 0.3mcg and upgraded to ICU for respiratory failure 2/2 mixed respiratory/metabolic acidosis and shock. Past surgical history: spina bifida s/p surgery, spinal cord tumor s/p surgical removal Social history: Chronic smoker since the age of 14, smoking 12 cigarettes/day, denies alcohol, other illicit drug abuse. Family: unknown Exam Vital Signs Temp Pulse Resp BP Pulse Ox O2 Del Method O2 Flow Rate 91.4 F L 0 L 34 H 64/48 L 51 L Mechanical Ventilation 15 09/04/24 07:24 09/04/24 19:35 09/04/24 14:41 09/04/24 18:45 09/04/24 16:00 09/04/24 10:05 09/04/24 07:24 FiO2 60 09/04/24 16:00 Narrative Exam General: sedated, paralyzed, unkept HEENT: Atraumatic, normocephalic.Pinpoint pupils, anicteric, No JVD noted. Creptius under calvicle b/L, Mucosa dry. Cardiovascular: Normal S1 and S2. Regular rate and rhythm. Respiratory: Lungs are clear to auscultation bilaterally. No wheezing or crackles heard, mechancial sounds Abdomen: Hard, nontender, not distended, normal bowel sounds. Loss of sphincter tone, rectal mass palpable Skin: mottling of b/L LE, brusing throuhout body, blanching, scaral wound with active bleeding, right deep ischial wound Musculoskeletal: underdevleoped left hand, +2 LE edema, Neuro: mechanically ventillated Results: Labs 09/04/24 12:02 09/04/24 12:02 Labs: Short CBC 09/04/24 09/04/24 Range/Units 05:20 12:02 WBC 53.8 H* D 49.5 H* (3.6-11.0) Thou/mm3 Hgb 7.8 L D 7.4 L (12.0-16.0) g/dL Hct 26.0 L 24.8 L (36.0-46.0) % Plt Count 380 D 296 D (140-440) Thou/mm3 BMP 09/04/24 09/04/24 05:00 12:02 Sodium 138 136 Potassium 8.4 H* 7.5 H* D Chloride 105 104 Carbon Dioxide 14.3 L* 15.2 L BUN 104 H* 109 H* Creatinine 5.0 H* D 4.8 H* Glucose 16 L* 208 H D Calcium 10.0 9.5 Cardiac Enzymes 09/04/24 Range/Units 05:00 Troponin I 0.022 (0.0-0.045) ng/mL Liver Function 09/04/24 09/04/24 Range/Units 05:00 12:02 Total Bilirubin 0.7 0.6 (0.3-1.2) mg/dL AST 316 H > 6000 H* (0-34) U/L ALT 145 H 2380 H* (10-49) U/L Alkaline Phosphatase 290 H 359 H D (46-116) U/L Albumin 3.8 3.1 L D (3.4-4.8) gm/dL ABG Interpretation ABG results: 09/04/24 09/04/24 09/04/24 08:00 09:03 09:49 ABG pH 6.95 L* 7.03 L* ABG pCO2 55 H 50 H ABG pO2 76 L 374 H D ABG HCO3 12 L 13 L ABG O2 Saturation 86 L 100 H ABG Base Excess -19 L -16 L VBG pH 7.10 L VBG pCO2 37 VBG pO2 116 H VBG Base Excess -17 L Quality Measures Quality Measures sepsis Current suspected stage: septic shock (LA >4 and/or hypotension) Sepsis reassessment completed at (date): 09/04/24 Sepsis reassessment completed at (time): 08:00 Possible source: pulmonary and bone/joint Blood cultures ordered: completed in ED Antibiotic ordered: Yes Advance care planning discussed with:: other Medications Home Medications and Allergies Allergies Allergy/AdvReac Type Severity Reaction Status Date / Time ciprofloxacin [From Cipro] Allergy Severe Rash Verified 09/04/24 04:48 Visit Medications Discontinued Medications Acetaminophen (Acetaminophen 325 Mg Tablet) 650 mg PO Q4HR PRN PRN Reason: PAIN SCALE 1-3 (mild Stop: 10/04/24 09:20 Acetaminophen (Acetaminophen Supp 650 Mg Supp) 650 mg FL Q4HR PRN PRN Reason: PAIN SCALE 1-3 (mild Stop: 10/04/24 09:20 Al Hydrox/Mg Hydrox/Simethicone (Mg Hyd/Al Hyd/Sourav (Maalox Reg) Susp 30 Ml Udc) 30 ml PO Q4HR PRN PRN Reason: Heartburn or Upset Stomach Stop: 10/04/24 09:20 Albuterol (Albuterol Rt 2.5 Mg/0.5 Ml Nebu) 5 mg INH X1 ONE Stop: 09/04/24 06:30 Last Admin: 09/04/24 06:52 Dose: 5 mg Albuterol (Albuterol Rt 2.5 Mg/0.5 Ml Nebu) 10 mg INH X1 ONE Stop: 09/04/24 14:16 Last Admin: 09/04/24 14:38 Dose: 10 mg Calcium Chloride (Calcium Chloride 10% Inj 10 Ml Syrg) 10 ml IV X1 ONE Stop: 09/04/24 08:36 Last Admin: 09/04/24 08:49 Dose: 10 ml Calcium Chloride (Calcium Chloride 10% Inj 10 Ml Syrg) 10 ml IV X1 ONE Stop: 09/04/24 08:33 Last Admin: 09/04/24 08:32 Dose: 10 ml Calcium Chloride (Calcium Chloride 10% Inj 10 Ml Syrg) 20 ml IV X1 ONE Stop: 09/04/24 14:04 Last Admin: 09/04/24 14:30 Dose: 20 ml Calcium Gluconate (Calcium Gluconate 10% Inj 1 Gm/10 Ml Vial) 1 gm IV X1 ONE Stop: 09/04/24 06:30 Last Admin: 09/04/24 08:57 Dose: Not Given Dextrose (Dextrose 50%-Water Inj 50 Ml Syringe) 50 ml IV X1 ONE Stop: 09/04/24 04:55 Last Admin: 09/04/24 04:40 Dose: 50 ml Dextrose (Dextrose 50%-Water Inj 50 Ml Syringe) 50 ml IV X1 ONE Stop: 09/04/24 04:56 Last Admin: 09/04/24 04:42 Dose: 50 ml Dextrose (Dextrose 50%-Water Inj 50 Ml Syringe) 50 ml IV X1 ONE Stop: 09/04/24 05:02 Last Admin: 09/04/24 05:00 Dose: 50 ml Dextrose (Dextrose 50%-Water Inj 50 Ml Syringe) 50 ml IV X1 ONE Stop: 09/04/24 06:30 Last Admin: 09/04/24 06:45 Dose: 50 ml Dextrose (Dextrose 50%-Water Inj 50 Ml Syringe) 50 ml IV X1 ONE Stop: 09/04/24 14:16 Last Admin: 09/04/24 14:30 Dose: 50 ml Epinephrine HCl (Epinephrine Inj 0.1 Mg/Ml Syringe 10ml) 1 mg IV X1 ONE Stop: 09/04/24 08:31 Last Admin: 09/04/24 08:30 Dose: 1 mg Etomidate (Etomidate Inj 2 Mg/Ml Vial 10 Ml) 20 mg 0.3 mg/kg (20 mg) IV X1 ONE Stop: 09/04/24 08:27 Last Admin: 09/04/24 08:27 Dose: 20 mg Famotidine (Famotidine Inj 10 Mg/Ml Vial 2 Ml) 20 mg IVP QDAY [facility] Stop: 10/04/24 09:20 Last Admin: 09/04/24 11:39 Dose: Not Given Heparin Sodium (Porcine) (Heparin Sod Inj 5000 Unit/Ml Vial) 5,000 unit SC Q8HR [facility] Stop: 09/18/24 13:59 Last Admin: 09/04/24 14:41 Dose: 5,000 unit Hydrocortisone Sodium Succinate (Hydrocortisone Sod Succ Inj 100 Mg Vial) 50 mg IV Q6HR [facility] Stop: 10/04/24 11:59 Last Admin: 09/04/24 17:27 Dose: 50 mg Piperacillin/Tazobactam/Dextrose (Zosyn) 3.375 gm in 50 mls @ 100 mls/hr IV X1 ONE Stop: 09/04/24 06:58 Last Infusion: 09/04/24 09:40 Dose: Infused Vancomycin HCl 1,000 mg/ (Sodium Chloride) 250 mls @ 150 mls/hr IV X1 ONE Stop: 09/04/24 08:10 Last Admin: 09/04/24 09:58 Dose: 150 mls/hr Sodium Chloride (Ns) 500 mls @ 999 mls/hr IV .Q31M ONE Stop: 09/04/24 07:07 Last Admin: 09/04/24 08:27 Dose: Not Given Sodium Chloride (Ns) 1,000 mls @ 150 mls/hr IV .Q6H40M ONE Stop: 09/04/24 13:16 Last Admin: 09/04/24 11:38 Dose: Not Given Lactated Ringer's (Lactated Ringers) 1,000 mls @ 999 mls/hr IV .Q1H1M ONE Stop: 09/04/24 09:26 Last Infusion: 09/04/24 08:45 Dose: Infused Lactated Ringer's (Lactated Ringers) 1,000 mls @ 999 mls/hr IV .Q1H1M ONE Stop: 09/04/24 09:26 Last Infusion: 09/04/24 09:09 Dose: Infused Calcium Chloride 10 ml/ Sodium (Chloride) 110 mls @ 110 mls/hr IV X1 ONE Stop: 09/04/24 08:33 Last Admin: 09/04/24 09:06 Dose: Not Given Norepinephrine/Dextrose (Levophed In D5w 8mg/250ml) 8 mg in 250 mls @ 6.166 mls/hr IV .Q24H PRN; Protocol PRN Reason: PER PROTOCOL Stop: 10/04/24 10:12 Last Titration: 09/04/24 18:00 Dose: 0.3 mcg/kg/min, 36.996 mls/hr Lactated Ringer's (Lactated Ringers) 1,000 mls @ 999 mls/hr IV .Q1H1M ONE Stop: 09/04/24 11:14 Last Admin: 09/04/24 10:15 Dose: 999 mls/hr Dexmedetomidine/Sodium Chloride (Precedex Ivpb) 200 mcg in 50 mls @ 3.289 mls/hr IV .Q74A11B PRN; Protocol PRN Reason: Per PROTOCOL Stop: 10/04/24 11:05 Last Titration: 09/04/24 18:46 Dose: 1.4 mcg/kg/hr, 23.02 mls/hr Fentanyl Citrate (Sublimaze Inj 2,500 Mcg/250 Ml Bag) 2,500 mcg in 250 mls @ 2.5 mls/hr IV .Q24H PRN; Protocol PRN Reason: PER PROTOCOL Stop: 09/09/24 11:54 Last Titration: 09/04/24 18:00 Dose: 300 mcg/hr, 30 mls/hr Vasopressin/Sodium Chloride (Vasostrict/Ns Ivpb) 20 unit in 100 mls @ 9 mls/hr IV .Q11H7M PRN; Protocol PRN Reason: PER PROTOCOL Stop: 10/04/24 12:02 Piperacillin/Tazobactam/Dextrose (Zosyn) 2.25 gm in 50 mls @ 100 mls/hr IV Q8HR [facility] Stop: 09/11/24 12:14 Last Admin: 09/04/24 14:41 Dose: 100 mls/hr Insulin Human Regular (Insulin Hum Regular 1 Unit/0.01 Ml (Per Unit)) 10 unit IV X1 ONE Stop: 09/04/24 06:30 Last Admin: 09/04/24 06:49 Dose: 10 unit Insulin Human Regular (Insulin Hum Regular 1 Unit/0.01 Ml (Per Unit)) 10 unit IV X1 ONE Stop: 09/04/24 08:39 Last Admin: 09/04/24 08:40 Dose: 10 unit Insulin Human Regular (Insulin Hum Regular 1 Unit/0.01 Ml (Per Unit)) 10 unit IV X1 ONE Stop: 09/04/24 14:03 Last Admin: 09/04/24 14:30 Dose: 10 unit Lactulose (Lactulose Syrup 20 Gm/30 Ml Udc) 20 gm PO TID [facility]; Protocol Stop: 10/04/24 13:59 Last Admin: 09/04/24 15:47 Dose: 20 gm Magnesium Hydroxide (Milk Of Magnesia Susp 30 Ml Udc) 30 ml PO QDAY PRN PRN Reason: CONSTIPATION Stop: 10/04/24 09:20 Nitroglycerin (Nitroglycerin 0.4 Mg Subl Btl #25) 0.4 mg SL Q5MIN PRN PRN Reason: CHEST PAIN Pharmacy Consult (Vancomycin Pharmacy To Dose 1 Each Each) 1 each IV QDAY PRN PRN Reason: CONSULT Stop: 10/04/24 12:14 Rifaximin (Rifaximin 550 Mg Tablet) 550 mg PO BID [facility] Stop: 09/11/24 11:59 Last Admin: 09/04/24 15:47 Dose: 550 mg Rocuronium [place] (Rocuronium Inj 10 Mg/Ml Vial 10 Ml) 30 mg IVP X1 ONE Stop: 09/04/24 08:27 Last Admin: 09/04/24 08:28 Dose: 30 mg Sodium Bicarbonate (Sodium Bicarb Inj 8.4% 1 Meq/Ml Vial 50 Ml) 50 meq IV X1 ONE Stop: 09/04/24 06:30 Last Admin: 09/04/24 06:45 Dose: 50 meq Sodium Bicarbonate (Sodium Bicarb Inj 8.4% Syr 50 Ml Syringe) 50 ml IV X1 ONE Stop: 09/04/24 08:34 Last Admin: 09/04/24 08:33 Dose: 50 ml Sodium Bicarbonate (Sodium Bicarb Inj 8.4% Syr 50 Ml Syringe) 50 ml IV X1 ONE Stop: 09/04/24 14:01 Last Admin: 09/04/24 14:30 Dose: 50 ml Sodium Chloride (Sodium Chloride Rt Lydia 0.9% 3 Ml Nebu) 3 ml INH NOW ONE Stop: 09/04/24 06:30 Last Admin: 09/04/24 06:53 Dose: 3 ml Sodium Chloride (Sodium Chloride Rt 10% 15 Ml Nebu) 5 ml INH X1 ONE Stop: 09/04/24 08:45 Last Admin: 09/04/24 09:17 Dose: Not Given Assessment & Plan Plan Traci Armando is 73 yr female with PMH of spina bifida status post surgery, spinal cord tumor status post resection, neurogenic bladder with chronic in/out cath and recurrent UTIs, chronic osteomyelitis of the right and left lower extremities, chronic gluteal ulcer since 2019 status post multiple debridements, and rectal mass presented to ED today with AMS. Intial labs showed severe hypoglycemia BS 16 and ABGs reflecting a mixed repiratory/metabolic acidosis with pH of 6.9, pCO2 55, and bicarb 14. Patient was then intubated and upgraded to ICU for respiratory failure 2/2 mixed respiratory/metabolic acidosis, shock, and hyperkalemia. Neuro: #Acute encephalopathy Multifactorial including acidosis, hypoglycemia, hyperkalemia, hyperammonemia, and uremia. Presented with AMS in ED. GCS3T. Per chart review, pt often has episodes of hypoglycemia. Intial ABGS pH of 6.9, pCO2 55, and bicarb 14. Intubated while in ED. Potassium was 8.4, ammonia 111, BG 16, urea 104. -treatment of individual underlying causes discussed below -start fentanyl for pain mgmt -RAAS goal 0 CVS: #Shock #Elevated Lactic acid DDx: most likely distributive (septic) shock with hypovolemic component. Patient meets SIRS 3/4 with elevated LA 10 plus source being OM and open wound. Labs reflect dehydration with elevated urea, short term improvement with 3L bolus fluids, dry membranes on physical exam. Obstructive causes such as tamponade ruled out with no effusion on echo at bedside. Possible PE with history of bladder, rectal, and lung cancer. Consider VQ scan. Wells criteria for PE 1.5 (low risk). Not fluid responsive based on Bedsied u/s of IVC apprx 2 cm. -levophed 0.3 mcg with goal MAP >65 -start vasopressin for second agent -50 mg IV hydrocortisone q6hr -cheetah/nicome for fluid responsiveness Pulm: #MV d/t respiratory failure d/t mixed respiratory, metabolic acidosis ABGs pH of 6.9, pCO2 55, and bicarb 14. Low bicarb in setting of CKD, compensatory to sepsis. Santos formula expected CO2 compensation to be 27-31. Therefore uncompensated acidosis. Would need to start dialysis if pursuing further intervention. #LLL pnuemonia [facility] healthcare associated pneumonia due to patient's recent admission. Patient presenting with hypothermia, increased respiratory rate. Chest x-ray significant for left lower lobe consolidation. ? Sputum cultures pending ? Blood cultures pending ? Start vancomycin and Zosyn renally dosed 2.25 g q8hr #Hx 5 mm pulmonary nodule Per chart review does not appear that patient had follow-up with precast worker for workup. Recommend to follow-up outpatient for repeat CT in approximately 6 months. Renal: #Hyperkalemia Potassium 8.4, initial vitals in the ED. EKG showed wide-complex tachycardia rate reaching 130s. No evidence peaked T waves. Most likely due to kidney disease in this patient. No peaked Twaves noticed on monitor, but pt was tachycardic 130-140s. Was given Calcium chloride and total x20 units regualr insulin with four amps D50. -repeat potassium -calcium chloride x1 -x10 units insulin if still >6.5 -monitor glucose and give D50 if <200 -daily CMP #Acute on chronic kidney disease hx of hydronephrosis with renal parenchymal scarring, recurrent UTIs contributing to kidney disease. Pre-renal as well in setting of sepsis. Also possible post renal with bladder obstruction from rectal mass/bladder cancer. -follow up with CT a/p -dialysis if persuing full care #Hx bladder cancer -follow with Dr. Beltrán GI: #Hx of cirrhosis #Transaminitis #Coagulopathy #hyperammonemia MELD-Na score 27 points. AST 316, ALT 145, ALP 290. Br 0.7. Transaminits due to hepatic shock due to hypoperfusion. Treat underlying cause. -lactulose 20 gTID -rifaximin 550 mg BID Endo: #Hypoglycemia-resolved Ed sugar 16. A1c 5.8 Ddx: impaired gluconeogenesis, poor oral intake, exogenous insulin use, medication induced. -q4hr sugar checks -hold D50 pushes if >200 with insulin tx Heme/Onc: # Leukocytosis WBC 53.8. Contributing her underlying sepsis. Possible leukemia. Will need further workup outpatient and follow-up with oncologist. -treat underlying sepsis -blood smear # Microcytic anemia MCV 78, hemoglobin 7.8 DDx iron deficiency, anemia chronic disease, acute blood loss. ? Monitor and transfuse if less than 7 ID: #Shock # Osteomyelitis Has not completed course of abx since last admission. Left AMA with an appropriate treatment. Evidence of right icheal and sacral ulcer on physical exam. Ddx: refer above. -culture pending -Vanc/zosyn Skin: #Multiple ulcers Two in gluteal area, 1in sacrum. -wound care -surgical debridements if pursuing full care plan #[facility] maintenance: Dispo: ICU for RF 2/2 mixed acidosis. DVT prophylaxis: Subcu heparin 5000 q8hr CODE STATUS: DNR The patient's management plan was discussed with my attending physician Dr. Fleming and senior Dr. Montgomery. Marj Gallagher, PGY-1
--- NOTE | 2024-09-04 15:46 | PC.SS ---
CARTRIDGE LOADER informed that ICU digital producer has conducted phone contact with patient's friend, Ria Grande; to discuss Code Status. Patient's code status to be transitioned to DNR.
[2024-09-04] MEDS: rifaximin 550 MG TABLET PO (15:47)
[2024-09-04] MEDS: LACTULOSE SYRUP 20 GM/30 ML UDC PO (15:47)
--- NOTE | 2024-09-04 16:01 | PD.INTPROC ---
Procedures Procedure Date / Time 09/04/24 1601 Intubation Indication(s): acute Resp Failure Informed consent obtained: procedure done urgently Time out done, and the following verified: correct patient, side and site and procedure Sedative: etomidate Mg given: 20 Paralytic: rocuronium Mg given: 30 Laryngoscope: fiber optic video scope ET tube size: 7.5 ET tube uncuffed: No Tube secured depth (cm): 21 Tube secured location: lips Tube placement confirmation: visualized tube passing through cords, equal breath sounds bilaterally, no breath sounds over epigastrium and confirmation by capnometry Patient tolerated procedure: well EBL(ml): 0 Intubation complications: hypotension
[2024-09-04] MEDS: Norepinephrine/D5W 8mg/250ml 8 MG/250 ML BAG 36.996 MG IV (16:29)
--- NOTE | 2024-09-04 19:28 | PD.DPN ---
Documentation for date of: 09/04/24 Pronouncement Note Date and Time of Date of : 09/04/24 Time of : 19:09 PCOD Preliminary cause of : Cardiopulmonary arrest Summary Additional details: Called to see patient for unresponsiveness. On exam the patient was unresponsive, no spontaneous movement observed, pt did not respond to verbal or noxious stimuli. Absent heart and breath sounds for more than 2 minute. Pupils are fixed and dilated, corneal reflex was absent. Patient pronounced at 19:09 on 09/04/2024. Supervising attending physician, Dr. Armenta notified. Patient's point of contact was notified. Additional Data Confirmation of : no pulse, no respirations, no heart sounds and pupils fixed and dilated Family: contacted Attending/PCP notified?: Yes Attending physician: Dr. Leo Armenta DO Was code activated?: No Autopsy requested?: No principal examiner notified?: Yes Organ bank notified?: No Advance directives: No
--- NOTE | 2024-09-04 20:27 | PC.NURSE ---
Patient domingo down to heart rate of 30s, pt arterial line showing no wave forms. Per day team ICU and Dr. Herron to not escalate care and to not titrate up on the levophed. Dr. Herron notified of patient status, Time of for patient 190.
--- NOTE | 2024-09-05 08:46 | DES_ITS ---
<Statement entered by Moise Montgomery MD - 09/06/24 06:58> Documentation for date of: 09/05/24 Summary Date and Time Date of admission: 09/04/24 09:05 Date of : 09/04/24 Time of : 19:09 Summary Details: Traci Armando, 1950 Time of : 19:09 Attending: Dr. Jonna Fleming MD Traci Armando is a 73 yr female with PMH of spina bifida status post surgery, spinal cord tumor status post resection, neurogenic bladder with chronic in/out cath and recurrent UTIs, chronic osteomyelitis of the right and left lower extremities, chronic gluteal ulcer since 2019 status post multiple debridements, pulmonary nodule, bladder mass, and rectal mass presented to ED on 09/04/24 with AMS. Patient had recently left from [facility] on 08/30 with incomplete treatment of underlying OM infection. Per chart review, she had declined any invasive treatment in terms of her underlying cancer and refused hopsice care. Initial labs showed severe hypoglycemia BS 16 and ABGs reflecting a mixed repiratory/metabolic acidosis with pH of 6.9, pCO2 55, and bicarb 14. Patient had severe hyperkalemia 8.4, coagulopathy, low MAP requiring pressor support, LA 10, hyperammonia 111, transaminitis, uremia, open sacral wound, severe leukocytosis WBC 54. Patient was started on calcium carbonate, insulin, and albuterol therapy for hyperkalemia with D50 pushes. She was upgraded to ICU for respiratory failure 2/2 mixed respiratory/metabolic acidosis and shock. From chart review and social media marketing specialist note, patient was her own decision maker and wanted to be DNR. Therefore, code status was changed from full code to DNR. No escalation of care was taken once in the ICU. Patient's MAP continued to drop with levophed dose 0.3mcg. HR was 200s. She went into asytole with time of at 19:09 on 09/04/24. On exam the patient was unresponsive, no spontaneous movement observed, pt did not respond to verbal or noxious stimuli. Absent heart and breath sounds for more than 2 minute. Pupils are fixed and dilated, corneal reflex was absent. Patient's point of contact was notified. Additional Data Attending physician: Jonna Fleming MD Visit Providers Provider Primary care physician: Physician No Primary/Family Discharge Plan Plan Patient Disposition: Prescriptions/Referrals Referrals: No Primary/Family,Physician [Primary Care Provider] - Patient/Caregiver Discharge Instructions Print Language: Chadian Discharge Order Discharge Orders: Discharge (Routine); Ordered 09/04/24 Ordered By: Ankur Herron
== END 2024-09-04 19:09 | disposition expired | DRG 871 ==
LOC: SERX 06:52 → SERHOLD 09:38 → S2SX 10:46
PROVIDERS: Emergency Medicine; Admitting Provider Internal Medicine; Emergency Provider Emergency Medicine; Visit Provider Internal Medicine
DX: A41.9 Sepsis, unspecified organism (principal); J18.9 Pneumonia, unspecified organism; J96.00 Acute respiratory failure, unspecified whether with hypoxia or hypercapnia; K72.00 Acute and subacute hepatic failure without coma; I13.0 Hypertensive heart and chronic kidney disease with heart failure and stage 1 through stage 4 chronic kidney disease, or unspecified chronic kidney disease; N17.9 Acute kidney failure, unspecified; N13.6 Pyonephrosis; D68.9 Coagulation defect, unspecified; E87.4 Mixed disorder of acid-base balance; G93.40 Encephalopathy, unspecified; M86.662 Other chronic osteomyelitis, left tibia and fibula; M86.661 Other chronic osteomyelitis, right tibia and fibula; I50.32 Chronic diastolic (congestive) heart failure; R57.1 Hypovolemic shock; Q05.9 Spina bifida, unspecified; N18.9 Chronic kidney disease, unspecified; E87.5 Hyperkalemia; C67.9 Malignant neoplasm of bladder, unspecified; E16.2 Hypoglycemia, unspecified; K74.60 Unspecified cirrhosis of liver; D50.9 Iron deficiency anemia, unspecified; E86.0 Dehydration; E86.1 Hypovolemia; Z66 Do not resuscitate; R68.0 Hypothermia, not associated with low environmental temperature; I46.9 Cardiac arrest, cause unspecified; L98.429 Non-pressure chronic ulcer of back with unspecified severity; F17.210 Nicotine dependence, cigarettes, uncomplicated; N31.9 Neuromuscular dysfunction of bladder, unspecified; Y95 Nosocomial condition; Z85.048 Personal history of other malignant neoplasm of rectum, rectosigmoid junction, and anus; Z85.118 Personal history of other malignant neoplasm of bronchus and lung; Z87.440 Personal history of urinary (tract) infections
CPT/HCPCS: 36415; 36600; 71045; 74018; 74176; 80053; 80307; 80320; 81001; 82140; 82803; 83605; 83880; 84484; 85025; 85610; 85730; 87040; 87077; 87081; 87086; 87186; 87205; 93005; 94002; 94003; 94640; 96374; 99291; C1751; J0171; J0612; J1643; J1720; J1815; J2543; J3010; J3371; J3490; J7050; J7120; A9270; G0480